=== PATIENT | female | born 1940 | race Caucasian/White ===

== ENCOUNTER → 2020-05-13 13:39 | Outpatient (CLI) | payer MEDICARE, SELFPAY ==
--- NOTE | ~2020-05-13 | MM_ITS ---
EXAMINATION: MM screening [facility] BI w allen HISTORY: Screening mammogram TECHNIQUE: Craniocaudal and mediolateral oblique 3-D tomosynthesis images were obtained and synthetic 2-D images were generated. CAD analysis was submitted and interpreted. COMPARISON: 11/11/2018, 10/25/2017, 10/30/2016 BREAST PARENCHYMAL COMPOSITION: There are scattered areas of fibroglandular density. FINDINGS: There is no evidence of suspicious mass, calcification, or architectural distortion to sugg est malignancy in either breast. There has been no suspicious interval change. IMPRESSION: 1. No mammographic evidence of malignancy. 2. Recommend routine screening mammography while the patient remains in good health. BI-RADS Category 1: Negative Reviewed, dictated and finalized at location A. IMPRESSION: 1. No mammographic evidence of malignancy. 2. Recommend routine screening mammography while the patient remains in good he alth. BI-RADS Category 1: Negative
== END ==
PROVIDERS: PCP Internal Medicine; Visit Provider Internal Medicine
DX: Z12.31 Encounter for screening mammogram for malignant neoplasm of breast (principal)
CPT/HCPCS: 77063; 77067

== ENCOUNTER → 2020-06-06 11:25 | Outpatient (CLI) | payer MEDICARE, SELFPAY ==
--- NOTE | ~2020-06-06 | DEXA_ITS ---
Bone Density Report Name: Martine Robles Age: 80 Sex: Female Ethnicity: White Date of : 1940 Indication: postmenopausal; screening for osteoporosis; height loss; Referring Provider: Raffaele Hogan Study: Bone densitometry was performed. Exam Date: June 06, 2020 Accession number: [id number] There is hypertrophic degenerative change of the lumbar spine, which results in higher than expected spine bone mineral density measurements. These spine BMD and T score and Z score measurements are not reflective of the patient's true general bone mineral density. Bone Density: Region BMD T-score Z-score Classification AP Spine (L1-L4) 1.134 0.8 3.5 Normal Femoral Neck (Left) 0.676 -1.6 0.7 Osteopenia Total Hip (Left) 0.911 -0.3 1.8 Normal Femoral Neck (Right) 0.672 -1.6 0.7 Osteopenia Total Hip (Right) 0.883 -0.5 1.6 Normal Total Hip Mean 0.897 -0.4 1.7 Normal World Health Organization criteria for BMD impression classify patients as: Normal (T-score at or above -1.0), Osteopenia (T-score between -1.0 and -2.5), or Osteoporosis (T-score at or below -2.5). 10-year Fracture Risk(1): Major Osteoporotic Fracture 13% Hip Fracture 3.1% Reported Risk Factors: [place] (), Neck BMD=0.672, BMI=29.7 (1) FRAX(R) Version 3.08. Fracture probability calculated for an untreated patient. Fracture probability may be lower if the patient has received treatment. Previous Exams: Region Exam Age BMD T-score BMD Change BMD Change Date g/cm2 vs Baseline vs Previous AP Spine(L1-L4) 06/06/2020 80 1.134 0.8 0.040* 0.040* 02/20/2011 70 1.094 0.4 Total Hip(Left) 06/06/2020 80 0.911 -0.3 0.004 0.004 02/20/2011 70 0.908 -0.3 Total Hip(Right) 06/06/2020 80 0.883 -0.5 0.006 0.006 02/20/2011 70 0.877 -0.5 *Denotes significance at 95% confidence level, LSC for AP Spine = 0.022 g/cm2, LSC for Total Hip = 0.027 g/cm2 Clinical Information Provided by Patient: Has used the following medications: Vitamin D, Synthroid Patient maximum height was 62.5 Menopause Age: 53 No regular weight bearing exercise Onset of menses at age 12 Number of children 1 Impression: The patient has low bone mass, based on the Left Femoral Neck T-score. The patient has an estimated ten-year risk of hip fracture of 3.1% and an estimated ten-year risk of major fracture of 13%, based on the WHO FRAX algorithm.
== END ==
PROVIDERS: PCP Internal Medicine; Visit Provider Internal Medicine
DX: Z78.0 Asymptomatic menopausal state (principal); M85.852 Other specified disorders of bone density and structure, left thigh; M85.851 Other specified disorders of bone density and structure, right thigh
CPT/HCPCS: 77080

== ENCOUNTER → 2020-07-05 11:56 | Outpatient (CLI) | payer MEDICARE, SELFPAY ==
--- NOTE | ~2020-07-05 | XR_ITS ---
EXAMINATION: XR knee RT 3V DATE: 07/05/2020 12:52 INDICATION: Right knee pain. TECHNIQUE: 3 views of right knee were obtained. COMPARISON: Right knee radiographs 08/05/2016 FINDINGS: There is lateral subluxation of patella. No fracture. There is severe osteoarthritis of pat ellofemoral compartment and mild osteoarthritis of medial and lateral compartments. No knee joint eff usion. IMPRESSION: 1. Severe right knee osteoarthritis. Reviewed, dictated and finalized at location A. TER DIE MAKER
--- NOTE | ~2020-07-05 | XR_ITS ---
EXAMINATION: XR knee LT 3V DATE: 07/05/2020 12:52 INDICATION: Left knee pain. TECHNIQUE: 3 views of left knee were obtained. COMPARISON: None. FINDINGS: There is lateral subluxation of patella. No fracture. There is severe osteoarthritis of pat ellofemoral compartment and mild osteoarthritis of medial and lateral compartments. No knee joint eff usion. IMPRESSION: 1. Severe left knee osteoarthritis. Reviewed, dictated and finalized at location A. [employer]
== END ==
PROVIDERS: Visit Provider Nurse Practitioner
DX: M17.0 Bilateral primary osteoarthritis of knee (principal)
CPT/HCPCS: 73562

== ENCOUNTER 2020-07-27 13:12 | Emergency (ER) | payer MEDICARE, SELFPAY ==
--- NOTE | 2020-07-27 13:15 | ED.GENADULT ---
HPI - General Adult General Chief complaint: Fall Stated complaint: Fall Time Seen by Provider: 07/27/20 13:14 Source: patient Mode of arrival: ambulatory Limitations: no limitations History of Present Illness HPI narrative: 80-year-old female patient presents to the [facility] with complaints of a laceration to the upper lip after a fall yesterday. Patient states she was walking down her stairs when she thinks she might of tripped and fallen and states she landed on the carpeted area of her stair landing. Patient thinks that she might have accidentally bit her lip or had her tooth hit her lip causing a laceration. Patient unaware of when her last tetanus shot was. Patient states she did clean the lip with some soap and water and has been cleaning with Listerine. Patient denies any history of diabetes. Patient denies hitting the top of her head or loss of consciousness at the time of the fall. Related Data Home Medications Medication Instructions Recorded Confirmed aspirin 81 mg tablet,delayed 81 mg PO DAILY 09/28/19 07/27/20 release brimonidine 0.15 % eye drops 1 drop EACH EYE BID ml 09/28/19 07/27/20 latanoprost 0.005 % eye drops 1 drop OPHTHALMIC (EYE) QPM ml 04/29/20 07/27/20 cholecalciferol (vitamin D3) 125 125 mcg PO DAILY 07/05/20 07/25/20 mcg (5,000 unit) capsule aluminum-mag hydroxide-simethicone 5 ml PO ONCE 07/25/20 07/25/20 200 mg-200 mg-20 mg/5 mL oral susp Allergies Allergy/AdvReac Type Severity Reaction Status Date / Time Sulfa (Sulfonamide Allergy Unknown stomach Verified 07/27/20 13:45 Antibiotics) cramping Review of Systems Review of Systems: Narrative: CONSTITUTIONAL: Denies fever, chills, or sweats. EYES: Denies visual changes, redness, or discharge. ENT: Denies rhinorrhea, congestion, sore throat, or otalgia. CARDIOVASCULAR: Denies chest pain, palpitations, or edema. RESPIRATORY: Denies cough or dyspnea. GASTROINTESTINAL: Denies abdominal pain, nausea, vomiting, or diarrhea. GENITOURINARY: Denies dysuria or hematuria. SKIN: Denies rash or itching. Positive laceration to the upper lip MUSCULOSKELETAL: Denies back pain, joint pain, or myalgia. NEUROLOGIC: Denies headache, numbness, or weakness. PSYCHIATRIC: Denies anxiety or depression. [facility] Past Medical History Medical History (Updated 07/27/20 @ 14:01 by MICHAEL Griffiths) Arthritis Asthma Bilateral knee pain Effusion, right knee GERD (gastroesophageal reflux disease) Hyperglycemia Hypertension Hypothyroidism Left knee DJD Lumbar spondylolysis Osteoporosis Post-nasal drip Right knee DJD Throat pain Wears glasses Surgical History Surgical History H/O eye surgery Retinal reattachment 1970 H/O thyroidectomy 2004 History of appendectomy 2001 Family History Family History (Updated 07/25/20 @ 13:43 by Karen Burgess, RT(R)) Other Family history of hypertension Family history of TIAs Father Heart attack Mother CHF (congestive heart failure) Cerebrovascular accident Other Arthritis Family history of cardiovascular disease Heart disease Hypertension Social History Social History (Updated 07/25/20 @ 13:43 by Karen Burgess, RT(R)) Smoking status: Never smoker Alcohol intake: never Substance use: never Substance use type: does not use Gender identity (if verbalized by the patient): Female Exam Narrative: Exam Narrative: GENERAL: Well-appearing, well-nourished, and in no acute distress. HEAD: Normocephalic, atraumatic. EYES: PERRLA and EOMI. ENT: Nares clear, no rhinorrhea or epistaxis. Mucous membranes moist. NECK: Supple. No lymphadenopathy CHEST: Clear to auscultation. No respiratory distress. HEART: Regular rate and rhythm. No murmur heard. Normal peripheral pulses. ABDOMEN: Soft, nontender, nondistended, normal active bowel sounds. EXTREMITIES: Normal range of motion. No edema. SKIN: Warm, dry, no rash. Patie
[2020-07-27 13:24] VITALS: BP 169/73; PULSE 64; RESP 20; TEMP 36.6; O2SAT 100
[2020-07-27] MEDS: TETANUS,DIPHTHERIA,AC PERTUSSIS ADULT (0.5 ML) BOOSTRIX IM (13:52)
== END 2020-07-27 14:09 | disposition home or self-care (01) ==
PROVIDERS: Emergency Provider Nurse Practitioner Family; PCP Internal Medicine
DX: S01.511A Laceration without foreign body of lip, initial encounter (principal); W10.9XXA Fall (on) (from) unspecified stairs and steps, initial encounter; Z23 Encounter for immunization; M19.90 Unspecified osteoarthritis, unspecified site; J45.909 Unspecified asthma, uncomplicated; K21.9 Gastro-esophageal reflux disease without esophagitis; I10 Essential (primary) hypertension; E89.0 Postprocedural hypothyroidism; M47.816 Spondylosis without myelopathy or radiculopathy, lumbar region; M17.0 Bilateral primary osteoarthritis of knee
CPT/HCPCS: 90471; 90715; 99213; G0463

== ENCOUNTER → 2021-02-28 10:48 | Outpatient (CLI) | payer MEDICARE, SELFPAY ==
--- NOTE | ~2021-02-28 | US_ITS ---
EXAMINATION: US abdomen complete EXAM DATE: 02/28/2021 12:50 INDICATION: R10.31 - Right lower quadrant pain. TECHNIQUE: Multiple grayscale and Doppler images of the complete abdomen were obtained (by a technolo gist who performed the scan) and subsequently reviewed. Comparison is made to prior examination from 12/23/2012. FINDINGS: Scanning in the right lower quadrant demonstrated no sonographic abnormality. Appendix was searched for but not visualized on this exam. Please note that normal appendix is not expected to b e visualized by ultrasound. Sometimes an abnormal appendix can be visualized. The abdominal aorta is normal in caliber. Visualized portion IVC is patent. The pancreatic head a nd body are normal in appearance. The pancreatic tail is not visualized. The liver has normal echogenicity and contour. There are no focal liver lesions identified. There is no evidence of intrahepatic biliary duct dilation. Portal venous flow was seen in the hepatopedal , normal direction and has normal Doppler waveform. Common bile duct measures 3 mm, which is normal. The gallbladder wall is normal in thickness, with ex pected amount of distention. No sonographic evidence of pericholecystic fluid. There is no cholelit hiases. Technologist performing exam reports patient did not demonstrate sonographic Damon's sign. Please note that this sign is less reliable in patients who have received pain medication. Right kidney: There is normal contour and echogenicity. It measures 8.7 x 4.7 x 3.9 centimeters. T here are no focal renal lesions identified. There is no hydronephrosis. Left kidney: There is normal contour and echogenicity. It measures 7.9 x 4.5 x 3.8 centimeters. Th ere are no focal renal lesions identified. There is no hydronephrosis. The spleen measures 9.4 centimeters and is morphologically normal. IMPRESSION: 1. Unremarkable complete abdominal ultrasound exam. Reviewed, dictated and finalized at location A.
== END ==
PROVIDERS: PCP Internal Medicine; Visit Provider Nurse Practitioner
DX: R10.31 Right lower quadrant pain (principal)
CPT/HCPCS: 76700

== ENCOUNTER 2021-03-05 17:13 | Outpatient (CLI) | payer MEDICARE, SELFPAY ==
--- NOTE | ~2021-03-05 | CT_ITS ---
EXAMINATION: CT abdomen pelvis wo con EXAM DATE: 03/05/2021 17:57 INDICATION: R10.31 - Right lower quadrant pain . TECHNIQUE: Spiral CT of the abdomen and pelvis was performed without contrast. Axial, coronal and s agittal images of the abdomen and pelvis were reviewed. The dose-length product (DLP) for this exami nation was 529.83 mGy-cm. The exposure was tailored according to patient size (auto mA exposure cont rol), and iterative reconstruction (ASIR) was used as additional dose reduction technique. Comparison is made to prior examination from 09/17/1969. FINDINGS: There are several liver cysts. Unchanged small nodules of soft tissue posterior to the righ t liver lobe, benign. The liver, spleen, adrenal glands and pancreas are otherwise unremarkable. Gal lbladder is unremarkable. No biliary obstruction. There is no nephrolithiasis or hydronephrosis. The uterus is unremarkable. The bladder is unremarkable. There is no retroperitoneal or pelvic lym phadenopathy. There is mild scattered arteriosclerotic disease. The appendix is not positively visualized. There is no pericecal inflammatory change to suggest appe ndicitis. The stomach and small bowel are unremarkable. There is moderate amount of colonic stool. No free intraperitoneal gas. The heart is normal in size. There are no pericardial or pleural e ffusions. The lung bases are unremarkable. Mild lumbar levoscoliosis. There are no osteoblastic or osteolytic lesions identified. IMPRESSION: No acute intra-abdominal findings. Reviewed, dictated and finalized at location .
== END 2021-03-05 17:14 | disposition home or self-care (01) ==
LOC: ANHIMG 17:20
PROVIDERS: PCP Internal Medicine; Visit Provider Nurse Practitioner
DX: R10.31 Right lower quadrant pain (principal)
CPT/HCPCS: 74176

== ENCOUNTER → 2021-05-22 13:48 | Outpatient (CLI) | payer MEDICARE, SELFPAY ==
--- NOTE | ~2021-05-22 | MM_ITS ---
EXAMINATION: MM screening [facility] BI w allen HISTORY: Screening mammogram TECHNIQUE: Craniocaudal and mediolateral oblique 3-D tomosynthesis images were obtained and synthetic 2-D images were generated. CAD analysis was submitted and interpreted. COMPARISON: 05/05/2020, 11/11/2018, 10/25/2017 BREAST PARENCHYMAL COMPOSITION: There are scattered areas of fibroglandular density. FINDINGS: There is no evidence of suspicious mass, calcification, or architectural distortion to sugg est malignancy in either breast. There has been no suspicious interval change. IMPRESSION: 1. No mammographic evidence of malignancy. 2. Recommend routine screening mammography while the patient remains in good health. BI-RADS Category 1: Negative Reviewed, dictated and finalized at location A. IMPRESSION: 1. No mammographic evidence of malignancy. 2. Recommend routine screening mammography while the patient remains in good he alth. BI-RADS Category 1: Negative
== END ==
PROVIDERS: PCP Internal Medicine; Visit Provider Nurse Practitioner
DX: Z12.31 Encounter for screening mammogram for malignant neoplasm of breast (principal)
CPT/HCPCS: 77063; 77067

== ENCOUNTER 2022-07-16 08:20 | Emergency (ER) | payer MEDICARE, SELFPAY ==
--- NOTE | 2022-07-16 08:26 | ED.URI ---
HPI - URI/Sore Throat General Chief Complaint: Upper Respiratory Infection Stated Complaint: Sore Throat Time Seen by Provider: 07/16/22 08:26 Source: patient and RN notes reviewed History of Present Illness HPI Narrative: patient is an 82-year-old female who presents to urgent care with complaints of a sore throat for 2 days. Patient states she has been gargling with Listerine. Denies any fever, nausea, vomiting, body aches. States she has had some sinus pressure and hoarseness. Denies any ill exposures. No other acute complaints. No acute distress noted. Patient aware of the plan of care. Some parts of this dictation were generated by voice recognition software and may contain typographical and/or grammatical inaccuracies. Related Data Home Medications Medication Instructions Recorded Confirmed aspirin 81 mg tablet,delayed 81 mg PO DAILY 09/28/19 07/16/22 release (Adult Low Dose Aspirin) latanoprost 0.005 % eye drops 1 drop ophthalmic (eye) QPM 04/29/20 07/16/22 cholecalciferol (vitamin D3) 125 125 mcg PO DAILY 07/05/20 07/16/22 mcg (5,000 unit) capsule doxycycline hyclate 20 mg tablet 20 mg PO BID 01/09/21 07/16/22 vit C 250 mg-vit E 90 mg-zinc 40 1 tablet PO BID 02/24/21 10/22/21 mg-copper 1 [id number]-vldyep capsule (PreserVision AREDS-2) Allergies Allergy/AdvReac Type Severity Reaction Status Date / Time Sulfa (Sulfonamide Allergy Unknown stomach Verified 07/16/22 08:44 Antibiotics) cramping Review of Systems Review of Systems: CONSTITUTIONAL: Denies fever, chills, or sweats. EYES: Denies visual changes, redness, or discharge. ENT: Reports of sinus pressure and sore throat CARDIOVASCULAR: Denies chest pain, palpitations, or edema. RESPIRATORY: Denies cough or dyspnea. GASTROINTESTINAL: Denies abdominal pain, nausea, vomiting, or diarrhea. GENITOURINARY: Denies dysuria or hematuria. SKIN: Denies rash or itching. MUSCULOSKELETAL: Denies back pain, joint pain, or myalgia. NEUROLOGIC: Denies headache, numbness, or weakness. All other systems reviewed are negative, except as documented in HPI. [facility] Past Medical History Medical History Acquired claw toe of right foot Arthritis Asthma Bilateral knee pain Bilateral primary osteoarthritis of hip Effusion, right knee GERD (gastroesophageal reflux disease) Hallux valgus (acquired), right foot Hyperglycemia Hypertension Hypothyroidism Left knee DJD Lumbar spine pain Lumbar spondylolysis Osteoporosis Post-nasal drip Right knee DJD Rosacea Throat pain Wears glasses Surgical History Surgical History H/O eye surgery Retinal reattachment 1970 H/O thyroidectomy 2004 History of appendectomy 2001 Family History Family History Other Family history of hypertension Family history of TIAs Father Heart attack Mother CHF (congestive heart failure) Cerebrovascular accident Other Arthritis Family history of cardiovascular disease Heart disease Hypertension Social History Social History (Updated 05/04/22 @ 13:15 by Marilin Odonnell) Social History: Caffeine-none Smoking status: Never smoker Alcohol intake: never Substance use: never Substance use type: does not use Gender identity (if verbalized by the patient): Female Comments At the time of my signature, I reviewed and agree with the nursing past medical, surgical, social, and family history. There is no relevant family history pertinent to the patient complaint. Exam Narrative: GENERAL: This is a well-nourished, well-developed patient, in no apparent distress. HEAD: normocephalic, atraumatic. EYES: PERRL. Sclera clear/white. Vision is grossly intact. EARS: External ears normal, auditory canals clear and without drainage, TMs normal without perforation. Hearing grossly intact. NOSE: External nose n
[2022-07-16 08:31] VITALS: BP 160/77; PULSE 55; RESP 16; TEMP 36.3; O2SAT 100
== END 2022-07-16 08:55 | disposition home or self-care (01) ==
PROVIDERS: Emergency Provider Nurse Practitioner Family; PCP Internal Medicine
DX: J02.9 Acute pharyngitis, unspecified (principal); Z79.82 Long term (current) use of aspirin; J45.909 Unspecified asthma, uncomplicated; K21.9 Gastro-esophageal reflux disease without esophagitis; I10 Essential (primary) hypertension; E03.9 Hypothyroidism, unspecified
CPT/HCPCS: 87081; 99213; G0463

== ENCOUNTER 2022-07-19 09:29 | Emergency (ER) | payer MEDICARE, SELFPAY ==
--- NOTE | ~2022-07-19 | XR_ITS ---
XR chest 1V portable 07/19/2022 09:46 Indication: Cough Procedure: AP portable chest Comparison: Comparison to multiple prior studies sequentially, with oldest reviewed study dated 05/10. Findings: Heart size normal. No focal air space disease, pulmonary edema, pleural effusion or suspect ed pneumothorax. Impression: 1: No acute cardiopulmonary disease. Reviewed, dictated and finalized at location A. [employer] D[employer]ER OPERATOR Impression: 1: No acute cardiopulmonary disease.
[2022-07-19 09:32] VITALS: BP 159/89; PULSE 75; RESP 15; TEMP 36.6; O2SAT 99
[2022-07-19 10:28] LABS: Influenza A QL RT-PCR Negative (Negative); Influenza B QL RT-PCR Negative (Negative); SARS-CoV-2 RNA PCR Negative
--- NOTE | 2022-07-19 10:36 | ED.URI ---
HPI - URI/Sore Throat General Chief Complaint: Upper Respiratory Infection Stated Complaint: coughing, shortness of breath, sore chest Time Seen by Provider: 07/19/22 09:46 Source: patient Mode of arrival: ambulatory Limitations: no limitations History of Present Illness HPI Narrative: Patient is an 82-year-old female who presents the ED with report of upper respiratory symptoms. Patient reports having sinus pressure, congestion, rhinorrhea, cough for the past 4 to 5 days. She thought she may have a sinus infection and was prescribed a Medrol Dosepak on 07/16. Patient denies improvement of symptoms since then. Last night, she had a hour-long coughing fit. She became concerned and wanted to be evaluated today. Patient is vaccinated for COVID and influenza. She denies any nausea, vomiting, abdominal pain, chest pain, difficulty breathing, muscle aches, headache, fever. Related Data Home Medications Medication Instructions Recorded Confirmed aspirin 81 mg tablet,delayed 81 mg PO DAILY 09/28/19 07/16/22 release (Adult Low Dose Aspirin) latanoprost 0.005 % eye drops 1 drop ophthalmic (eye) QPM 04/29/20 07/16/22 cholecalciferol (vitamin D3) 125 125 mcg PO DAILY 07/05/20 07/16/22 mcg (5,000 unit) capsule doxycycline hyclate 20 mg tablet 20 mg PO BID 01/09/21 07/16/22 vit C 250 mg-vit E 90 mg-zinc 40 1 tablet PO BID 02/24/21 10/22/21 mg-copper 1 ml-lewgfz-iyudhy capsule (PreserVision AREDS-2) Allergies Allergy/AdvReac Type Severity Reaction Status Date / Time Sulfa (Sulfonamide Allergy Unknown stomach Verified 07/16/22 08:44 Antibiotics) cramping Review of Systems Review of Systems: CONSTITUTIONAL: Denies fever, chills, or sweats. ENT: Reports sinus pressure, rhinorrhea, congestion. CARDIOVASCULAR: Denies chest pain. RESPIRATORY: Reports cough. Denies dyspnea. GASTROINTESTINAL: Denies abdominal pain, nausea, vomiting, or diarrhea. MUSCULOSKELETAL: Denies myalgia. NEUROLOGIC: Denies headache. All systems reviewed & are unremarkable except as noted in HPI and below PMFSH Past Medical History Medical History Acquired claw toe of right foot Arthritis Asthma Bilateral knee pain Bilateral primary osteoarthritis of hip Effusion, right knee GERD (gastroesophageal reflux disease) Hallux valgus (acquired), right foot Hyperglycemia Hypertension Hypothyroidism Left knee DJD Lumbar spine pain Lumbar spondylolysis Osteoporosis Post-nasal drip Right knee DJD Rosacea Throat pain Wears glasses Surgical History Surgical History H/O eye surgery Retinal reattachment 1970 H/O thyroidectomy 2004 History of appendectomy 2002 Family History Family History Other Family history of hypertension Family history of TIAs Father Heart attack Mother CHF (congestive heart failure) Cerebrovascular accident Other Arthritis Family history of cardiovascular disease Heart disease Hypertension Social History Social History Social History: Caffeine-none Smoking status: Never smoker Alcohol intake: never Substance use: never Substance use type: does not use Gender identity (if verbalized by the patient): Female Exam Narrative: GENERAL: Well appearing, well-nourished, non-toxic, in no acute distress. HEAD: Normocephalic, atraumatic. EENT: PERRLA/EOMI, conjunctiva clear. No nasal drainage. MMs moist. NECK: Supple. No adenopathy, no masses. RESPIRATORY: Airway patent, respirations nonlabored. Clear to auscultation bilaterally, no rales, rhonchi, wheezing. CARDIOVASCULAR: Regular rate and rhythm without murmurs, rubs, or gallops. Peripheral pulses 2+ and equal bilaterally. ABDOMINAL: Soft, nontender, nondistended, no hepatosplenomegaly. Normoactive BS. MUSCULOSKELETA
== END 2022-07-19 10:52 | disposition home or self-care (01) ==
PROVIDERS: Emergency Provider Physician Assistant; PCP Internal Medicine
DX: J06.9 Acute upper respiratory infection, unspecified (principal); Z20.822 Contact with and (suspected) exposure to COVID-19; J45.909 Unspecified asthma, uncomplicated; I10 Essential (primary) hypertension; K21.9 Gastro-esophageal reflux disease without esophagitis; E89.0 Postprocedural hypothyroidism; M81.0 Age-related osteoporosis without current pathological fracture; M17.0 Bilateral primary osteoarthritis of knee; M19.90 Unspecified osteoarthritis, unspecified site; Z79.82 Long term (current) use of aspirin
CPT/HCPCS: 71045; 87636; 99283

== ENCOUNTER → 2022-07-23 14:11 | Outpatient (CLI) | payer MEDICARE, SELFPAY ==
--- NOTE | ~2022-07-23 | MM_ITS ---
EXAMINATION: MM screening [facility] BI w allen HISTORY: Screening mammogram TECHNIQUE: Craniocaudal and mediolateral oblique 3-D tomosynthesis images were obtained and synthetic 2-D images were generated. CAD analysis was submitted and interpreted. COMPARISON: 05/22/2021, 05/13/2020, 11/11/2018 BREAST PARENCHYMAL COMPOSITION: There are scattered areas of fibroglandular density. FINDINGS: No suspicious mass, calcification, or architectural distortion are identified in either aleksander ast to suggest malignancy. There has been no suspicious interval change. IMPRESSION: 1. No mammographic evidence of malignancy. 2. Recommend routine screening mammography while the patient remains in good health. BI-RADS Category 1: Negative Reviewed, dictated and finalized at location A. [employer]EDGE IMPRESSION: 1. No mammographic evidence of malignancy. 2. Recommend routine screening mammography while the patient remains in good he alth. BI-RADS Category 1: Negative
== END ==
PROVIDERS: PCP Internal Medicine; Visit Provider Nurse Practitioner
DX: Z12.31 Encounter for screening mammogram for malignant neoplasm of breast (principal)
CPT/HCPCS: 77063; 77067

== ENCOUNTER 2022-10-09 20:53 | Emergency (ER) | payer MEDICARE, SELFPAY ==
[2022-10-09] VITALS (17 sets, daily range): BP systolic 153–187; BP diastolic 65–78; PULSE 58–71; RESP 13–23; TEMP 36.6; O2SAT 100
--- NOTE | ~2022-10-09 | CT_ITS ---
EXAMINATION: CT brain wo con DATE: 10/09/2022 21:51 INDICATION: Headache. TECHNIQUE: Computed tomography (CT) of the head was performed without intravenous contrast. The mA wa s adjusted according to patient size. Iterative reconstruction technique was employed. The dose-lengt h product was 605.33 mGy-cm. COMPARISON: Head CT 06/15/2019 FINDINGS: There is a small area of chronic cystic encephalomalacia in the right frontoparietal deep w ana matter. There is no intracranial hemorrhage, acute infarction, or abnormal intracranial mass les ion. There are scattered areas of low attenuation in the cerebral white matter, which is within ling l limits for the patient's age. The ventricles are normal in size. There are likely changes of ocular lens replacement surgeries. There are changes of bilateral scleral banding procedures. There are rad iopaque implants at the surface of the ocular globes bilaterally. There is mild mucosal thickening in the paranasal sinuses. The mastoid air cells are normal. IMPRESSION: 1. 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 Reviewed, dictated and finalized at location [facility]. NING COORDINATOR IMPRESSION: 1. Small area of chronic cystic encephalomalacia in the right frontoparietal de ep white matter.
--- NOTE | 2022-10-09 21:39 | ECG_ITS ---
Measurements Intervals [place] Rate: 59 P: 18 MD: 181 QRS: -17 QRSD: 90 T: 39 QT: 421 QTc: 418 Interpretive Statements SINUS BRADYCARDIA OTHERWISE WITHIN NORMAL LIMITS COMPARED TO ECG 06/15/2019 12:26:25 NO SIGNIFICANT CHANGE Electronically Signed On 10-10-2022 7:53:19 PROFESSOR OF SOCIOLOGY by Ashvin Julian M.D.
[2022-10-09 22:23] LABS: Basophils Percent Auto 0.3 % (0.2-1.2); Eosinophils Absolute Auto 0.1 K/mm3 (0-0.3); Hematocrit 44.1 % (37.0-47.0); Hemoglobin 14.3 g/dL (12.0-15.0); Immature Granulocyte Absolute 0.02 K/mm3 (0.00-0.031); Immature Granulocyte Percent A 0.2 % (0-0.5); Lymphocytes Absolute Auto 3.46 K/mm3 (0.9-3.2); Lymphocytes Percent Auto 39.3 % (18.3-44.2); Mean Corpuscular HGB Conc 32.4 g/dl (32-36); Mean Corpuscular Hemoglobin 28.8 pg (26-34); Mean Corpuscular Volume 88.9 fl (80-100); Mean Platelet Volume 10.3 fl (7.4-10.4); Monocytes Absolute Auto 1.1 K/mm3 (0.1-0.6); Monocytes Percent Auto 12.5 % (2.6-8.5); Neutrophils Absolute Auto 4.1 K/mm3 (1.3-6.7); Neutrophils Percent Auto 46.7 % (45.5-73.1); Platelet Count Result 264 k/mm3 (150-375); Red Blood Count 4.96 M/mm3 (4.2-5.4); White Blood Count 8.8 K/mm3 (4.5-10.0)
[2022-10-09 22:30] LABS: Appearance Urine Clear (Clear); Bacteria Urine None Seen /hpf; Bilirubin Urine Negative (Negative); Blood Urine Negative (Negative); Color Urine Yellow (Yellow); Glucose Urine UA Negative (Negative); Ketones Urine Negative (Negative); Leukocyte Esterase Ur Trace LEU/UL (Negative); Nitrate Urine Negative (Negative); Non Pathogenic Casts 0-2; Protein Urine Negative (Negative); RBC Urine 0-2 /hpf (0-2); Specific Grav Ur 1.006 (1.001-1.035); Squamous Epithelial Cell Urine None seen /hpf (Few); Urobilinogen Urine 0.2 mg/dL (<2.0); WBC Urine 0-5 /hpf
[2022-10-09 22:35] LABS: Alanine Aminotransferase 21 U/L (6-35); Albumin Level 4.4 g/dL (3.5-5.1); Alkaline Phosphatase 97 U/L (38-126); Anion Gap 5 mmol/L (8-16); Aspartate Amino Transferase 27 U/L (14-36); Bilirubin,Total 0.5 mg/dL (0.2-1.3); Blood Urea Nitrogen 23 mg/dL (7-17); Calcium 9.2 mg/dL (8.4-10.2); Carbon Dioxide 31 mmol/L (22-30); Chloride 107 mmol/L (98-107); Estimated Glomerular Filt Rate > 60; Glucose 97 mg/dL (65-110); Magnesium 2.4 mg/dL (1.6-2.3); Potassium 3.9 mmol/L (3.4-5.0); Sodium 143 mmol/L (137-145)
--- NOTE | 2022-10-09 22:40 | ED.GENADULT ---
HPI - General Adult General Chief complaint: Headache Stated complaint: high blood pressure Time Seen by Provider: 10/09/22 21:21 History of Present Illness HPI narrative: Patient 82-year-old female who presents the emergency department with chief complaint of headache and hypertension. Patient reports this evening she noticed that she started having little bit of a headache which is unusual for her. The patient reports no focal neurological deficits but reports that she checked her blood pressure and it started progressively increasing that she would check her blood pressure multiple times. Patient reports that she takes verapamil. The patient denies chest pain denies shortness of breath denies focal neurological deficit. Related Data Home Medications Medication Instructions Recorded Confirmed aspirin 81 mg tablet,delayed 81 mg PO DAILY 09/28/19 07/16/22 release (Adult Low Dose Aspirin) latanoprost 0.005 % eye drops 1 drop ophthalmic (eye) QPM 04/29/20 07/16/22 cholecalciferol (vitamin D3) 125 125 mcg PO DAILY 07/05/20 07/16/22 mcg (5,000 unit) capsule vit C 250 mg-vit E 90 mg-zinc 40 1 tablet PO BID 02/24/21 10/22/21 mg-copper 1 [id number] capsule (PreserVision AREDS-2) Allergies Allergy/AdvReac Type Severity Reaction Status Date / Time Sulfa (Sulfonamide Allergy Unknown stomach Verified 10/09/22 21:08 Antibiotics) cramping Review of Systems Review of Systems: A 10 system review of systems was completed on the patient and is negative except for what is stated in the HPI. Nursing and ancillary documentation was reviewed. [facility] Past Medical History Medical History Acquired claw toe of right foot Arthritis Asthma Bilateral knee pain Bilateral primary osteoarthritis of hip Effusion, right knee GERD (gastroesophageal reflux disease) Hallux valgus (acquired), right foot Hyperglycemia Hypertension Hypothyroidism Left knee DJD Lumbar spine pain Lumbar spondylolysis Osteoporosis Post-nasal drip Right knee DJD Rosacea Throat pain Wears glasses Surgical History Surgical History H/O eye surgery Retinal reattachment 1970 H/O thyroidectomy 2004 History of appendectomy 2001 Family History Family History Other Family history of hypertension Family history of TIAs Father Heart attack Mother CHF (congestive heart failure) Cerebrovascular accident Other Arthritis Family history of cardiovascular disease Heart disease Hypertension Social History Social History Social History: Caffeine-none Smoking status: Never smoker Alcohol intake: never Substance use: never Substance use type: does not use Lack of Transportation: No Lack of Food: Never True Current Housing: I Have Housing Concerned About Future Housing: No Difficulty Paying Gas/Electric Bills: No Difficulty Paying for Meds: No Currently Unemployed: No Education: High School Diploma/GED Difficulty w/ Childcare or Family Care: No Gender identity (if verbalized by the patient): Female Exam Narrative: GENERAL: Well-appearing, well-nourished, and in no acute distress. HEAD: Normocephalic, atraumatic. EYES: PERRLA and EOMI. ENT: Nares clear, no rhinorrhea or epistaxis. Mucous membranes moist. NECK: Supple. CHEST: Clear to auscultation. No respiratory distress. HEART: Regular rate and rhythm. No murmur heard. Normal peripheral pulses. ABDOMEN: Soft, nontender, nondistended, normal active bowel sounds. EXTREMITIES: Normal range of motion. No edema. SKIN: Warm, dry, no rash. NEURO: No focal deficits. Alert and oriented x3. PSYCH: Normal mood and affect. Course Vital Signs Vital signs: Vital Signs Temperature 36.6 C 10/09/22 2
[2022-10-09 22:46] LABS: NT Pro B Type Natriuretic Pept 336 pg/mL (19.9-100); Troponin I < 0.012 ng/mL (0.000-0.034)
[2022-10-09 22:52] LABS: Add Urine Microscopic? NO
[2022-10-09 22:57] LABS: Influenza A QL RT-PCR Negative (Negative); Influenza B QL RT-PCR Negative (Negative); SARS-CoV-2 RNA PCR Negative
[2022-10-10] VITALS: PULSE 69; RESP 14; O2SAT 100
[2022-10-10 00:01] VITALS: BP 166/78; PULSE 74; RESP 17; O2SAT 100
[2022-10-10 00:02] VITALS: PULSE 75; RESP 18; O2SAT 100
== END 2022-10-10 00:35 | disposition home or self-care (01) ==
PROVIDERS: Emergency Provider Emergency Medicine; PCP Internal Medicine
DX: I10 Essential (primary) hypertension (principal); Z20.822 Contact with and (suspected) exposure to COVID-19; J45.909 Unspecified asthma, uncomplicated; M16.0 Bilateral primary osteoarthritis of hip; M17.0 Bilateral primary osteoarthritis of knee; K21.9 Gastro-esophageal reflux disease without esophagitis; E89.0 Postprocedural hypothyroidism; R00.1 Bradycardia, unspecified
CPT/HCPCS: 36415; 70450; 80053; 81003; 83735; 83880; 84484; 85025; 87636; 93005; 96365; 99284; J0131

== ENCOUNTER 2022-10-30 09:35 | Outpatient (CLI) | payer MEDICARE, SELFPAY ==
--- NOTE | ~2022-10-30 | CT_ITS ---
CT of the Abdomen and Pelvis: Indication: Abdominal pain Technique: 2.5 mm axial scans were obtained through the abdomen and pelvis following intravenous adm inistration of 100 cc of Omnipaque 350. Dose reduction technique was used on this scan by utilizing a utomated exposure control and iterative reconstruction technique. The dose-length product (DLP) was 5 03.15 mGy-cm. COMPARISON: 03/05/2021 Findings: Scans through the lung bases are unremarkable. Small hiatal hernia noted. Small hepatic cysts are noted. The spleen, pancreas, gallbladder, adrenals and kidneys are within nor mal limits. There are atherosclerotic calcifications of the aorta. No lymphadenopathy. No bowel obstruction or bowel wall thickening. There is no evidence to suggest acute appendicitis. Ti ny fat-containing umbilical hernia noted. Images through the pelvis were performed. Urinary bladder unremarkable. No adnexal mass. No ascites. Impression: Tiny fat-containing umbilical hernia. Small hiatal hernia. Reviewed, dictated and finalized at [facility]. Impression: Tiny fat-containing umbilical hernia. Small hiatal hernia.
== END 2022-10-30 09:36 | disposition home or self-care (01) ==
PROVIDERS: PCP Internal Medicine; Visit Provider Clinical Nurse Specialist
DX: K44.9 Diaphragmatic hernia without obstruction or gangrene (principal); K42.9 Umbilical hernia without obstruction or gangrene
CPT/HCPCS: 74177; Q9967

== ENCOUNTER 2022-11-05 09:22 | Outpatient (CLI) | payer MEDICARE, SELFPAY ==
--- NOTE | 2022-11-05 10:04 | ECHO_ITS ---
Patient Info Name: Martine Robles Age: 82 years : 1940 Gender: Female Ht: 59 in Wt: 142 lbs BSA: 1.66 m2 HR: 59 bpm BP: 163 / 96 mmHg Technical Quality: Fair Exam Date: 11/05/2022 10:17 AM Exam Location: [facility] Patient Status: Outpatient Admit Date: 11/05/2022 Staff Ordering Physician: Alexus Garces Consumer Experience Consultant: Melina Guzman RDCS Attending Provider: Alexus Garces Referring Physician: Mili MATOS; Exam Type: CA echo doppler color flow Study Info Indications R79.89 - OTHER SPECIFIED ABNORMAL FINDINGS OF BLOOD CHEMISTRY Complete two-dimensional, color flow and Doppler transthoracic echocardiogram is performed. Summary 1. Complete two-dimensional, color flow and Doppler transthoracic echocardiogram is performed. 2. Left ventricular chamber dimension is normal. 3. Left ventricular systolic function is normal, estimated at 60-65%. 4. There is mild concentric increased left ventricular wall thickness. 5. The left ventricular diastolic function is grade I diastolic dysfunction. 6. E/e' 7 is not elevated. 7. Global longitudinal strain is normal at -17.2%. 8. Left atrial chamber dimension is mildly enlarged. 9. There is moderate aortic valve sclerosis. 10. There is mild aortic valve stenosis with a peak velocity of 165 cm/s, mean gradient of 6 mmHg, and aortic valve area of 1.9 cm2. 11. The mitral valve has mildly calcified annulus. 12. No pulmonary hypertension, estimated pulmonary arterial systolic pressure is 19 mmHg. 13. Dilated inferior vena cava with >50% collapse upon inspiration consistent with elevated right atrial pressure, 10 mmHg. Left Ventricle E/e' 7 is not elevated. Global longitudinal strain is normal at -17.2%. Left ventricular chamber dimension is normal. Left ventricular systolic function is normal, estimated at 60-65%. There is mild concentric increased left ventricular wall thickness. The left ventricular diastolic function is grade I diastolic dysfunction. Right Ventricle Right ventricular systolic function is normal and with normal TAPSE 2.2 cm. Right ventricular chamber dimension is normal. Left Atria Left atrial chamber dimension is mildly enlarged. Right Atria Right atrial chamber dimension is normal. Aortic Valve The aortic valve is trileaflet. There is moderate aortic valve sclerosis. There is mild aortic valve stenosis with a peak velocity of 165 cm/s, mean gradient of 6 mmHg, and aortic valve area of 1.9 cm2. There is no aortic valve regurgitation. Pulmonic Valve There is no pulmonic regurgitation. Mitral Valve The mitral valve has mildly calcified annulus. There is no mitral valve stenosis. There is no mitral valve regurgitation. Tricuspid Valve There is no tricuspid valve regurgitation. No pulmonary hypertension, estimated pulmonary arterial systolic pressure is 19 mmHg. Pericardium/Pleural There is no pericardial effusion. Inferior Vena Cava Dilated inferior vena cava with >50% collapse upon inspiration consistent with elevated right atrial pressure, 10 mmHg. Aorta The aortic root size at the sinus of Valsalva is normal. Left Ventricular Outflow Tract Name Value Normal LVOT 2D LVOT Diameter 1.9 cm
== END 2022-11-05 09:23 | disposition home or self-care (01) ==
PROVIDERS: PCP Internal Medicine; Visit Provider Clinical Nurse Specialist
DX: R79.89 Other specified abnormal findings of blood chemistry (principal); R06.02 Shortness of breath; R94.39 Abnormal result of other cardiovascular function study
CPT/HCPCS: 93306

== ENCOUNTER 2022-11-20 14:23 | Emergency (ER) | payer MEDICARE, SELFPAY ==
--- NOTE | ~2022-11-20 | CT_ITS ---
EXAMINATION: CT brain wo con DATE: 11/20/2022 14:47 INDICATION: Headache and vertex TECHNIQUE: Computed tomography (CT) of the head was performed without intravenous contrast. The mA wa s adjusted according to patient size. Iterative reconstruction technique was employed. Exam dose: 60 5.33 mGy-cm total exam DLP. COMPARISON: October 09, 2022 CT brain FINDINGS: No intracranial mass lesion or hemorrhage or recent cerebrovascular accident is detected. N o midline shift or mass effect. Normal ventricular size. Mild to moderate volume loss of the cerebral and cerebellar hemispheres consistent with patient age. Prominent bilateral carotid siphon internal carotid artery calcifications. Small chronic lacunar infa rct of the right periventricular area No subdural or epidural hematoma. Bilateral scleral banding of the orbits There is an isolated opacified mid lateral left ethmoid air cell. Bilateral nasal antral windows are suggested. The paranasal sinuses and mastoid air cells are otherwise unremarkable. No fracture or bone destruction of the cranial vault. IMPRESSION: Cerebral atherosclerosis and chronic small vessel ischemic changes of the cerebral white matter, small chronic lacunar infarct of the right periventricular area No acute intracranial finding Reviewed, dictated and finalized at [facility]. Reviewed, dictated and finalized at location [facility]. IMPRESSION: Cerebral atherosclerosis and chronic small vessel ischemic changes of the cerebral white matter, small chronic lacunar infarct of the right periv entricular area No acute intracranial finding
--- NOTE | ~2022-11-20 | XR_ITS ---
XR chest 2V DATE: 11/20/2022 20:42 INDICATION: Hypertensive crisis TECHNIQUE: PA and lateral views COMPARISON: None FINDINGS: Normal heart size. Aortic calcification and unfolding. No pulmonary infiltrate or consolida tion, pleural effusion or pulmonary vascular congestion or pneumothorax. Osteopenia. IMPRESSION: No active cardiopulmonary disease Aortic atherosclerosis Osteopenia Reviewed, dictated and finalized at location [facility].
[2022-11-20 14:30] VITALS: BP 183/72; PULSE 88; RESP 20; TEMP 36.6; O2SAT 99
--- NOTE | 2022-11-20 19:03 | ED.HA ---
HPI - Headache General Chief Complaint: Headache <ASA Hill Last Filed: 11/20/22 22:37> Stated Complaint: headache <ASA Hill Last Filed: 11/20/22 22:37> Time Seen by Provider: 11/20/22 18:39 <Birgit Esparza PA-C - Last Filed: 11/20/22 22:37> History of Present Illness HPI Narrative: Patient is an 82-year-old female with a history of hypertension here for evaluation of posterior headache x1 day. Patient states that headache came on gradually and is described as a tense sensation in her posterior head. She denies any associated symptoms, denies visual changes, nausea, vomiting, weakness, fevers, chills. No neck stiffness. She attempted an ibuprofen with moderate relief of her symptoms. She denies history of previous similar headaches but per chart review patient was here in September, had full work-up that was reassuring. Patient was concerned that she was having a stroke which prompted ED evaluation. She was compliant with her antihypertensives this morning. <ASA Hill Last Filed: 11/20/22 22:37> Related Data Home Medications: Home Medications Medication Instructions Recorded Confirmed aspirin 81 mg tablet,delayed 81 mg PO DAILY 09/28/19 10/19/22 release (Adult Low Dose Aspirin) latanoprost 0.005 % eye drops 1 drop ophthalmic (eye) QPM 04/29/20 10/19/22 cholecalciferol (vitamin D3) 125 125 mcg PO DAILY 07/05/20 10/19/22 mcg (5,000 unit) capsule vit C 250 mg-vit E 90 mg-zinc 40 1 tablet PO BID 02/24/21 10/19/22 mg-copper 1 [id number] capsule (PreserVision AREDS-2) <ASA Hill Last Filed: 11/20/22 22:37> Allergies/Adverse Reactions: Allergies Allergy/AdvReac Type Severity Reaction Status Date / Time Sulfa (Sulfonamide Allergy Unknown stomach Verified 11/23/22 10:39 Antibiotics) cramping <ASA Hill Last Filed: 11/20/22 22:37> Review of Systems Review of Systems: Gen: Denies fevers or chills Eyes: Denies eye pain or visual change ENT: Denies congestion Respiratory: Denies shortness of breath or cough CV: Denies chest pain or palpitations GI: Denies abdominal pain nausea, emesis or diarrhea : denies burning, urgency, frequency or hematuria Musculoskeletal: Denies back pain or muscle pain Neuro: Reports headache Skin: Denies rash Except as documented, all other systems reviewed and negative <Birgit Esparza PA-C - Last Filed: 11/20/22 22:37> [facility] Past Medical History Medical History: Medical History Acquired claw toe of right foot Arthritis Asthma Bilateral knee pain Bilateral primary osteoarthritis of hip Effusion, right knee GERD (gastroesophageal reflux disease) Hallux valgus (acquired), right foot Hyperglycemia Hypertension Hypothyroidism Left knee DJD Lumbar spine pain Lumbar spondylolysis Osteoporosis Post-nasal drip Right knee DJD Rosacea Throat pain Wears glasses <Birgit Esparza PA-C - Last Filed: 11/20/22 22:37> Surgical History Surgical History: Surgical History H/O eye surgery Retinal reattachment 1970 H/O thyroidectomy 2004 History of appendectomy 2001 <Birgit Esparza PA-C - Last Filed: 11/20/22 22:37> Family History Family History: Family History Other Family history of hypertension Family history of TIAs Father Heart attack Mother CHF (congestive heart failure) Cerebrovascular accident Other Arthritis Family history of cardiovascular disease Heart disease Hypertension <ASA Hill Last Filed: 11/20/22 22:37> Social History Social History: Social History Social History: Caffeine-none Smoking status: Never
--- NOTE | 2022-11-20 19:22 | ECG_ITS ---
Measurements Intervals [place] Rate: 63 P: 25 [place]: 183 QRS: -23 QRSD: 92 T: 41 QT: 390 QTc: 399 Interpretive Statements SINUS RHYTHM MODERATE VOLTAGE CRITERIA FOR LVH, CONSIDER NORMAL VARIANT BORDERLINE ECG COMPARED TO ECG 10/09/2022 22:16:33 HEART RATE HAS INCREASED Electronically Signed On 11-21-2022 15:17:20 CDT by Miguel Almodovar M.D.
[2022-11-20 19:30] VITALS: BP 184/79; PULSE 77; RESP 18; O2SAT 99
[2022-11-20 19:59] LABS: Basophils Percent Auto 0.3 % (0.2-1.2); Eosinophils Absolute Auto 0.1 K/mm3 (0-0.3); Eosinophils Percent Auto 0.5 % (0-4.4); Hematocrit 46.3 % (37.0-47.0); Hemoglobin 14.9 g/dL (12.0-15.0); Immature Granulocyte Absolute 0.02 K/mm3 (0.00-0.031); Immature Granulocyte Percent A 0.2 % (0-0.5); Lymphocytes Absolute Auto 4.15 K/mm3 (0.9-3.2); Lymphocytes Percent Auto 43.5 % (18.3-44.2); Mean Corpuscular HGB Conc 32.2 g/dl (32-36); Mean Corpuscular Hemoglobin 28.3 pg (26-34); Mean Corpuscular Volume 87.9 fl (80-100); Mean Platelet Volume 10.1 fl (7.4-10.4); Monocytes Percent Auto 10.1 % (2.6-8.5); Neutrophils Absolute Auto 4.3 K/mm3 (1.3-6.7); Neutrophils Percent Auto 45.4 % (45.5-73.1); Platelet Count Result 270 k/mm3 (150-375); Red Blood Count 5.27 M/mm3 (4.2-5.4); White Blood Count 9.5 K/mm3 (4.5-10.0)
[2022-11-20 20:10] LABS: Alanine Aminotransferase 22 U/L (6-35); Albumin Level 4.5 g/dL (3.5-5.1); Alkaline Phosphatase 95 U/L (38-126); Anion Gap 4 mmol/L (8-16); Aspartate Amino Transferase 27 U/L (14-36); Bilirubin,Total 0.7 mg/dL (0.2-1.3); Blood Urea Nitrogen 17 mg/dL (7-17); Calcium 9.3 mg/dL (8.4-10.2); Carbon Dioxide 29 mmol/L (22-30); Chloride 106 mmol/L (98-107); Estimated CRCL calculation 48 ml/min; Estimated Glomerular Filt Rate > 60; Glucose 126 mg/dL (65-110); Potassium 3.9 mmol/L (3.4-5.0); Sodium 139 mmol/L (137-145)
[2022-11-20 20:17] LABS: Fractional Inspired Oxygen 21 %; HCO3 VBG 26.9 mEq/l (24.0-30.0); PCO2 VBG 46.4 mmHg (42.0-48.0); PO2 VBG 39.7 mmHg (35.0-45.0); pH VBG 7.381 (7.300-7.400)
[2022-11-20 20:19] LABS: Device ROOM AIR
[2022-11-20 20:32] LABS: Appearance Urine Clear (Clear); Bacteria Urine None Seen /hpf; Bilirubin Urine Negative (Negative); Blood Urine Negative (Negative); Color Urine Yellow (Yellow); Glucose Urine UA Negative (Negative); Hyaline Casts Urine Present /lpf; Ketones Urine 1+ mg/dL (Negative); Leukocyte Esterase Ur 1+ LEU/UL (Negative); Nitrate Urine Negative (Negative); Non Pathogenic Casts 0-2; Protein Urine Negative (Negative); RBC Urine 0-2 /hpf (0-2); Specific Grav Ur 1.012 (1.001-1.035); Squamous Epithelial Cell Urine Occasional /hpf (Few); Urobilinogen Urine 0.2 mg/dL (<2.0); WBC Urine 0-5 /hpf
[2022-11-20 20:33] LABS: Add Urine Microscopic? YES
[2022-11-20] MEDS: ACETAMINOPHEN/ASPIRIN/CAFFEINE 250-250-65 MG TABLET 1 TABLET PO (21:08)
[2022-11-20 21:25] VITALS: BP 169/77; PULSE 71; RESP 18; O2SAT 99
== END 2022-11-20 21:38 | disposition home or self-care (01) ==
PROVIDERS: Emergency Provider Physician Assistant; PCP Internal Medicine
DX: R51.9 Headache, unspecified (principal); I10 Essential (primary) hypertension; E89.0 Postprocedural hypothyroidism; J45.909 Unspecified asthma, uncomplicated; K21.9 Gastro-esophageal reflux disease without esophagitis; M17.0 Bilateral primary osteoarthritis of knee; M81.0 Age-related osteoporosis without current pathological fracture
CPT/HCPCS: 36415; 70450; 71046; 80053; 81001; 82803; 85025; 93005; 99284; A9270

== ENCOUNTER 2022-12-02 09:34 | Emergency (ER) | payer MEDICARE, SELFPAY ==
[2022-12-02] VITALS (12 sets, daily range): BP systolic 147–178; BP diastolic 69–90; PULSE 61–83; RESP 10–17; TEMP 36.6; O2SAT 92–100
--- NOTE | 2022-12-02 09:44 | ECG_ITS ---
Measurements Intervals [place] Rate: 61 P: 37 [place]: 191 QRS: -7 QRSD: 95 T: 23 QT: 419 QTc: 423 Interpretive Statements SINUS RHYTHM COMPARED TO ECG 11/20/2022 19:41:00 NO SIGNIFICANT CHANGES Electronically Signed On 12-02-2022 15:53:42 CDT by Shelbi Drake M.D.
[2022-12-02 10:22] LABS: Basophils Percent Auto 0.2 % (0.2-1.2); Eosinophils Percent Auto 0.1 % (0-4.4); Hematocrit 42.2 % (37.0-47.0); Hemoglobin 13.8 g/dL (12.0-15.0); Immature Granulocyte Absolute 0.02 K/mm3 (0.00-0.031); Immature Granulocyte Percent A 0.2 % (0-0.5); Lymphocytes Absolute Auto 1.96 K/mm3 (0.9-3.2); Lymphocytes Percent Auto 18.9 % (18.3-44.2); Mean Corpuscular HGB Conc 32.7 g/dl (32-36); Mean Corpuscular Hemoglobin 28.7 pg (26-34); Mean Corpuscular Volume 87.7 fl (80-100); Mean Platelet Volume 10.4 fl (7.4-10.4); Monocytes Absolute Auto 0.6 K/mm3 (0.1-0.6); Monocytes Percent Auto 6.1 % (2.6-8.5); Neutrophils Absolute Auto 7.7 K/mm3 (1.3-6.7); Neutrophils Percent Auto 74.5 % (45.5-73.1); Platelet Count Result 236 k/mm3 (150-375); Red Blood Count 4.81 M/mm3 (4.2-5.4); Red Cell Distribution Width 13.1 % (11.5-14.5); White Blood Count 10.4 K/mm3 (4.5-10.0)
[2022-12-02 10:28] LABS: Appearance Urine Clear (Clear); Bacteria Urine None Seen /hpf; Bilirubin Urine Negative (Negative); Blood Urine Negative (Negative); Color Urine Yellow (Yellow); Glucose Urine UA Negative (Negative); Ketones Urine Trace mg/dL (Negative); Leukocyte Esterase Ur 1+ LEU/UL (Negative); Need Manual Microscopic Reviewed; Nitrate Urine Negative (Negative); Non Pathogenic Casts 0-2; Protein Urine Negative (Negative); RBC Urine 0-2 /hpf (0-2); Specific Grav Ur 1.014 (1.001-1.035); Squamous Epithelial Cell Urine Occasional /hpf (Few); Urobilinogen Urine 0.2 mg/dL (<2.0); WBC Urine 0-5 /hpf
[2022-12-02] MEDS: SODIUM CHLORIDE 0.9% IV 500 ML 999 ML IV CONT (10:28)
[2022-12-02] MEDS: KETOROLAC 30 MG/ML VIAL (*BKC) 15 MG IV PUSH (10:29)
[2022-12-02] MEDS: MECLIZINE HCL 25 MG TABLET PO (10:31)
[2022-12-02 10:36] LABS: Alanine Aminotransferase 22 U/L (6-35); Alkaline Phosphatase 82 U/L (38-126); Anion Gap 4 mmol/L (8-16); Aspartate Amino Transferase 29 U/L (14-36); Bilirubin,Total 0.5 mg/dL (0.2-1.3); Blood Urea Nitrogen 22 mg/dL (7-17); Calcium 8.9 mg/dL (8.4-10.2); Carbon Dioxide 30 mmol/L (22-30); Chloride 105 mmol/L (98-107); Estimated Glomerular Filt Rate > 60; Glucose 135 mg/dL (65-110); Potassium 3.9 mmol/L (3.4-5.0); Sodium 139 mmol/L (137-145)
[2022-12-02 10:46] LABS: Add Urine Microscopic? YES
--- NOTE | 2022-12-02 11:11 | PC.NURSE ---
Report received from Sindhu Gordon incuding history and physical and plan of care
--- NOTE | 2022-12-02 12:14 | ED.GENADULT ---
HPI - General Adult General Chief complaint: Dizziness Stated complaint: MIGRAINE Time Seen by Provider: 12/02/22 09:41 History of Present Illness HPI narrative: Patient is an 82-year-old female who presents ER with dizziness. Spinning. Makes her feel unsteady when she ambulates. She has mild headache that is frontal and throbbing. No fevers chills or sweats. No sinus congestion sore throat or cough. She is supposed to follow-up with her PCP today but she felt unbalanced and told them should be coming to the ER for further evaluation. Symptoms are better when sitting still. Has not taken any medication to modify her dizziness. Related Data Home Medications Medication Instructions Recorded Confirmed aspirin 81 mg tablet,delayed 81 mg PO DAILY 09/28/19 10/19/22 release (Adult Low Dose Aspirin) latanoprost 0.005 % eye drops 1 drop ophthalmic (eye) QPM 04/29/20 10/19/22 cholecalciferol (vitamin D3) 125 125 mcg PO DAILY 07/05/20 10/19/22 mcg (5,000 unit) capsule vit C 250 mg-vit E 90 mg-zinc 40 1 tablet PO BID 02/24/21 10/19/22 mg-copper 1 [id number] capsule (PreserVision AREDS-2) Allergies Allergy/AdvReac Type Severity Reaction Status Date / Time Sulfa (Sulfonamide Allergy Unknown stomach Verified 12/02/22 09:43 Antibiotics) cramping Review of Systems Review of Systems: All systems reviewed & are unremarkable except as noted in HPI and below Constitutional: Constitutional: Denies chills, Denies fatigue and Denies fever(s) ENT: Denies nasal congestion and Denies sore throat Cardiovascular: Cardiovascular: Denies chest pain, Denies rapid heart rate and Denies radiating jaw, neck or arm pain Respiratory: Respiratory: Denies cough and Denies dyspnea Gastrointestinal: Gastrointestinal: Denies abdominal pain, Denies nausea and Denies vomiting Neurologic: Reports dizziness, Denies syncope and Reports headache(s) [facility] Past Medical History Medical History Acquired claw toe of right foot Arthritis Asthma Bilateral knee pain Bilateral primary osteoarthritis of hip Effusion, right knee GERD (gastroesophageal reflux disease) Hallux valgus (acquired), right foot Hyperglycemia Hypertension Hypothyroidism Left knee DJD Lumbar spine pain Lumbar spondylolysis Osteoporosis Post-nasal drip Right knee DJD Rosacea Throat pain Wears glasses Surgical History Surgical History H/O eye surgery Retinal reattachment 1970 H/O thyroidectomy 2004 History of appendectomy 2002 Family History Family History Other Family history of hypertension Family history of TIAs Father Heart attack Mother CHF (congestive heart failure) Cerebrovascular accident Other Arthritis Family history of cardiovascular disease Heart disease Hypertension Social History Social History Social History: Caffeine-none Smoking status: Never smoker Alcohol intake: never Substance use: never Substance use type: does not use Lack of Transportation: No Lack of Food: Never True Current Housing: I Have Housing Concerned About Future Housing: No Difficulty Paying Gas/Electric Bills: No Difficulty Paying for Meds: No Currently Unemployed: No Education: High School Diploma/GED Difficulty w/ Childcare or Family Care: No Gender identity (if verbalized by the patient): Female Exam Narrative: GENERAL: Well-appearing, well-nourished, and in no acute distress. HEAD: Normocephalic, atraumatic. EYES: PERRL and EOMI. ENT: Mucous membranes moist. CHEST: Clear to auscultation. No respiratory distress. HEART: Regular rate and rhythm. Normal peripheral pulses. ABDOMEN: Soft, nontender, nondistended. EXTREMITIES: Normal range of motion. No edema. SKIN: Warm, dry, no r
== END 2022-12-02 12:49 | disposition home or self-care (01) ==
PROVIDERS: Emergency Provider Emergency Medicine; PCP Internal Medicine
DX: R42 Dizziness and giddiness (principal); J45.909 Unspecified asthma, uncomplicated; I10 Essential (primary) hypertension; E89.0 Postprocedural hypothyroidism; K21.9 Gastro-esophageal reflux disease without esophagitis; M16.0 Bilateral primary osteoarthritis of hip; M81.0 Age-related osteoporosis without current pathological fracture; M17.0 Bilateral primary osteoarthritis of knee; Z79.82 Long term (current) use of aspirin
CPT/HCPCS: 36415; 80053; 81001; 85025; 93005; 96361; 96374; 99284; A9270; J1885; J7040

== ENCOUNTER 2024-05-22 14:22 | Emergency (ER) | payer MEDICARE, SELFPAY ==
--- NOTE | ~2024-05-22 | XR_ITS ---
EXAMINATION: XR abdomen/kub 1V DATE: 05/22/2024 15:52 INDICATION: Constipation. Right lower quadrant abdominal pain. TECHNIQUE: A supine view of the abdomen on 2 radiographs was obtained. COMPARISON: CT abdomen and pelvis 10/30/2022 FINDINGS: There are no dilated loops of bowel. There is a large volume of stool in the colon. There a re surgical clips in right abdomen. IMPRESSION: 1. Nonobstructive bowel gas pattern. Reviewed, dictated and finalized at location [facility].
[2024-05-22 14:23] VITALS: BP 149/70; PULSE 60; RESP 20; TEMP 37; O2SAT 100
[2024-05-22 15:23] LABS: EDUAAPPEAR Clear; EDUABILI Negative (Negative); EDUABLOOD Negative (Negative); EDUACOLOR1 Light/Pale; EDUAGLUCOSE Negative (Negative); EDUAKETONE Negative (Negative); EDUALEUKO Negative (Negative); EDUANITRATE Negative (Negative); EDUAPROTEIN Negative (Negative); EDUAUROBILI 0.2
--- NOTE | 2024-05-22 15:23 | ED.ABDPAIN ---
HPI - Abdominal Pain General Chief Complaint: Abdominal Pain Stated Complaint: Right Flank Pain Time Seen by Provider: 05/22/24 15:23 Source: patient Mode of arrival: ambulatory Limitations: no limitations History of Present Illness HPI narrative: 84-year-old female presents with complaint of right low back pain radiating around to right lower abdomen. Pain for approximately 2 days. Reports having very small bowel movements. Unable to go today. Afebrile. No urinary symptoms. All systems reviewed and negative except as noted above. Related Data Home Medications Medication Instructions Recorded Confirmed aspirin 81 mg tablet,delayed 81 mg PO DAILY 09/28/19 05/22/24 release (Adult Low Dose Aspirin) latanoprost 0.005 % eye drops 1 drop ophthalmic (eye) QPM 04/29/20 05/22/24 cholecalciferol (vitamin D3) 125 125 mcg PO DAILY 07/05/20 05/22/24 mcg (5,000 unit) capsule brimonidine 0.2 %-timolol 0.5 % 1 drp EACH EYE BID 05/22/24 05/22/24 eye drops (Combigan) doxycycline hyclate 20 mg tablet 20 mg PO BID 05/22/24 05/22/24 sodium hyaluronate (viscosup) 16.8 16.8 mg intra-articular WEEKLY 05/22/24 05/22/24 mg/2 mL intra-articular syringe (Gelsyn-3) verapamil 240 mg tablet,extended 120 mg PO QPM 05/22/24 05/22/24 release Allergies Allergy/AdvReac Type Severity Reaction Status Date / Time Sulfa (Sulfonamide Allergy Unknown stomach Verified 05/22/24 14:27 Antibiotics) cramping Review of Systems Review of Systems: CONSTITUTIONAL: Denies fever, chills, or sweats. EYES: Denies visual changes, redness, or discharge. ENT: Denies rhinorrhea, congestion, sore throat, or otalgia. CARDIOVASCULAR: Denies chest pain, palpitations, or edema. RESPIRATORY: Denies cough or dyspnea. GASTROINTESTINAL: Reports right lower abdominal pain with constipation. Denies nausea, vomiting, or diarrhea. GENITOURINARY: Denies dysuria or hematuria. SKIN: Denies rash or itching. MUSCULOSKELETAL: Denies back pain, joint pain, or myalgia. NEUROLOGIC: Denies headache, numbness, or weakness. PSYCHIATRIC: Denies anxiety or depression. All other systems reviewed are negative, except as documented in HPI. [facility] Past Medical History Medical History Acquired claw toe of right foot Arthritis Asthma Bilateral knee pain Bilateral primary osteoarthritis of hip Effusion, right knee Elevated brain natriuretic peptide (BNP) level GERD (gastroesophageal reflux disease) Hallux valgus (acquired), right foot Hospital discharge follow-up Hyperglycemia Hypertension Hypothyroidism Left knee DJD Lumbar spine pain Lumbar spondylolysis Osteoporosis Post-nasal drip Right knee DJD Rosacea Swelling of both lower extremities Throat pain Vertigo Wears glasses Surgical History Surgical History H/O eye surgery Retinal reattachment 1970 H/O thyroidectomy 2004 History of appendectomy 2002 Family History Family History Other Family history of hypertension Family history of TIAs Father Heart attack Mother CHF (congestive heart failure) Cerebrovascular accident Other Arthritis Family history of cardiovascular disease Heart disease Hypertension Social History Social History Social History: Caffeine-none Smoking status: Never smoker Alcohol intake: never Substance use: never Substance use type: does not use Do You Feel Safe in your Home?: Yes Lack of Transportation: No Lack of Food: Never True Current Housing: I Have Housing Concerned About Future Housing: No Difficulty Paying Gas/Electric Bills: No Difficulty Paying for Meds: No Currently Unemployed: No Education: High School Diploma/GED Difficulty w/ Childcare or Family Care: No Gender identity (if verbalized b
== END 2024-05-22 16:05 | disposition home or self-care (01) ==
PROVIDERS: Emergency Provider Nurse Practitioner Family; PCP Internal Medicine
DX: K59.00 Constipation, unspecified (principal); M16.0 Bilateral primary osteoarthritis of hip; K21.9 Gastro-esophageal reflux disease without esophagitis; I10 Essential (primary) hypertension; E89.0 Postprocedural hypothyroidism; M17.0 Bilateral primary osteoarthritis of knee; M47.816 Spondylosis without myelopathy or radiculopathy, lumbar region; J45.909 Unspecified asthma, uncomplicated; Z79.82 Long term (current) use of aspirin
CPT/HCPCS: 74018; 81003; 99213; G0463

== ENCOUNTER 2024-10-24 16:38 | Emergency (ER) | payer MEDICARE, SELFPAY ==
--- NOTE | ~2024-10-24 | XR_ITS ---
CHEST RADIOGRAPH, PA AND LATERAL CLINICAL HISTORY: cough. EXPOSED TO COVID . COMPARISON: 11/20/2022 TECHNIQUE: PA and lateral views of the chest. FINDINGS The cardiomediastinal silhouette is unremarkable. The lungs are clear. Visualized osseous structures and soft tissues are unremarkable. IMPRESSION: No focal infiltrate or effusion. Reviewed, dictated and finalized at location A.
[2024-10-24 16:47] VITALS: BP 146/80; PULSE 101; RESP 16; TEMP 37.1; O2SAT 96
--- NOTE | 2024-10-24 17:17 | ED_ITS ---
HPI - Weakness General Chief complaint: Weakness <Birgit Barlow PA-C - Last Filed: 10/27/24 16:58> Stated complaint: Body ache, weakness, cough exp COVID <Birgit Barlow PA-C - Last Filed: 10/27/24 16:58> Time Seen by Provider: 10/24/24 17:17 <Birgit Barlow PA-C - Last Filed: 10/27/24 16:58> Focused HPI: This is a 84 year old female that presents to the ER for cold symptoms. Reports cough, dizziness, congestion. Ongoing over the last couple of days. Reports she has been exposed to COVID. Denies fevers, shortness of breath. GENERAL: Elderly, well-nourished, and in no acute distress. HEAD: Normocephalic, atraumatic. CHEST: Clear to auscultation. ?No respiratory distress. HEART: Regular rate and rhythm.? NEURO: ?Alert and oriented x3. Patient screened in triage and initial orders placed.? ?Additional care and disposition to be based upon?diagnostic testing and treatment. <Birgit Barlow PA-C - Last Filed: 10/27/24 16:58> History of Present Illness HPI Narrative: Agree with the HPI above. <Jake Lieberman MD - Last Filed: 10/24/24 22:00> Related Data Home medications: Home Medications ?Medication ?Instructions ?Recorded ?Confirmed ?Last Taken ?Type aspirin 81 mg tablet,delayed 81 mg PO DAILY 09/28/19 10/09/24 Unknown History release (Adult Low Dose Aspirin) latanoprost 0.005 % eye drops 1 drop ophthalmic (eye) QPM 04/29/20 10/09/24 Unknown History cholecalciferol (vitamin D3) 125 125 mcg PO DAILY 07/05/20 10/09/24 Unknown History mcg (5,000 unit) capsule brimonidine 0.2 %-timolol 0.5 % 1 drp EACH EYE BID 05/22/24 10/09/24 Unknown History eye drops (Combigan) sodium hyaluronate (viscosup) 16.8 16.8 mg intra-articular WEEKLY 05/22/24 10/09/24 Unknown History mg/2 mL intra-articular syringe (Gelsyn-3) <Birgit Barlow PA-C - Last Filed: 10/27/24 16:58> Allergies/Adverse reactions: Allergies Allergy/AdvReac Type Severity Reaction Status Date / Time Sulfa (Sulfonamide Allergy Unknown stomach Verified 10/09/24 12:16 Antibiotics) cramping <Birgit Barlow PA-C - Last Filed: 10/27/24 16:58> Review of Systems 2 Review of Systems: As reviewed above in HPI <Jake Lieberman MD - Last Filed: 10/24/24 22:00> [facility] Past Medical History Medical History: Medical History [place] of toe Vertigo Swelling of both lower extremities Hospital discharge follow-up Elevated brain natriuretic peptide (BNP) level Lumbar spine pain Bilateral primary osteoarthritis of hip Acquired claw toe of right foot Hallux valgus (acquired), right foot Rosacea Effusion, right knee Left knee DJD Right knee DJD Arthritis Osteoporosis GERD (gastroesophageal reflux disease) Wears glasses Bilateral knee pain Throat pain Post-nasal drip Lumbar spondylolysis Hyperglycemia Asthma Hypothyroidism Hypertension <Birgit Barlow PA-C - Last Filed: 10/27/24 16:58> Surgical History Surgical History: Surgical History History of appendectomy 2001 H/O thyroidectomy 2004 H/O eye surgery Retinal reattachment 1970 <Birgit Barlow PA-C - Last Filed: 10/27/24 16:58> Family History Family History: Family History Other Family history of hypertension Family history of TIAs Father Heart attack Mother CHF (congestive heart failure) Cerebrovascular accident Other Arthritis Family history of cardiovascular disease Heart disease Hypertension <Birgit Barlow PA-C - Last Filed: 10/27/24 16:58> Social History Social History: Social History Social History: Caffeine-none Smoking status: Never smoker Alcohol intake: never Substance use: never Substance use type: does not use Do You Feel Safe in your Home?: Yes Lack of Transportation: No Lack of Food: Never True Current Housing: I Have Housing Concerned About Future Housing: No Difficulty Paying Gas/Electric Bills: No Difficulty Paying for Meds: No Currently Unemployed: No Education: High School Diploma/GED Difficulty w/ Childcare or Family Care: No Gender identity (if verbalized by the patient): Female <Birgit Barlow PA-C - Last Filed: 10/27/24 16:58> Exam 2 Narrative: GENERAL: [Well-appearing, well-nourished, and in no acute distress.] HEAD: [Normocephalic, atraumatic.] EYES: [PERRLA and EOMI.] ENT: Nares clear, no rhinorrhea or epistaxis. Mucous membranes moist. NECK: Supple. CHEST: [Clear to auscultation. No respiratory distress.] HEART: [Regular rate and rhythm]. No murmur heard. [Normal peripheral pulses.] ABDOMEN: [Soft, nondistended], [nontender], [No rigidity or guarding] EXTREMITIES: Normal range of motion. [No edema.] SKIN: Warm, dry, no rash. NEURO: [No focal deficits]. Alert and oriented [x3.] PSYCH: [Normal mood and affect.] <Jake Lieberman MD - Last Filed: 10/24/24 22:00> Course Vital Signs Vital signs: Vital Signs Temperature 98.7 F 10/24/24 16:47 Pulse Rate 101 H 10/24/24 16:47 Respiratory Rate 16 10/24/24 16:47 Blood Pressure 146/80 H 10/24/24 16:47 Pulse Oximetry 96 10/24/24 16:47 Oxygen Delivery Room Air 10/24/24 16:47 Temperature 98.3 F 10/24/24 21:45 Pulse Rate 128 H 10/24/24 21:45 Respiratory Rate 14 10/24/24 21:45 Blood Pressure 158/94 H 10/24/24 21:45 Pulse Oximetry 100 10/24/24 21:45 Oxygen Delivery Room Air 10/24/24 16:47 <Birgit Barlow PA-C - Last Filed: 10/27/24 16:58> Vital Signs Temperature 98.7 F 10/24/24 16:47 Pulse Rate 101 H 10/24/24 16:47 Respiratory Rate 16 10/24/24 16:47 Blood Pressure 146/80 H 10/24/24 16:47 Pulse Oximetry 96 10/24/24 16:47 Oxygen Delivery Room Air 10/24/24 16:47 Temperature 98.3 F 10/24/24 21:45 Pulse Rate 128 H 10/24/24 21:45 Respiratory Rate 14 10/24/24 21:45 Blood Pressure 158/94 H 10/24/24 21:45 Pulse Oximetry 100 10/24/24 21:45 Oxygen Delivery Room Air 10/24/24 16:47 <Jake Lieberman MD - Last Filed: 10/24/24 22:00> MDM - Weakness MDM Narrative Medical decision making narrative: 84-year-old female presenting to the ER for evaluation after she had cough for the last 2 days and concern for exposure to COVID. She has otherwise been well without any complaints recently. Denies any shortness a breath, chest pain, nausea, vomiting. She ambulates unassisted. Was visiting a family member at a local nursing facility. People around her were coughing frequently she thinks she may have caught something from them. She is otherwise not any distress, has normal vital signs of any tachycardia, fever, hypoxia. She had a dry cough for last 2 days and clear breath sounds. Suspicion presently for COVID versus influenza, bronchitis less likely pneumonia or consolidation. Chest x-ray was obtained, COVID swabs obtained and basic laboratory studies ordered. Patient's workup was largely unremarkable with normal electrolyte panel, normal renal and hepatic function panel. Normal glucose. Chest x-ray without any consolidation or pneumonia. Patient did test positive for influenza which explains for cough. Went over symptomatic treatment options with the patient as well as offering her Tamiflu although recommendations given her well appearance with normal vitals to hold off on taking this medication and rather try [id number] therapies and prescription benzonatate. Patient will be sent home with medications and return precautions as well as instructions to follow- up with her PCP. <Jake Lieberman MD - Last Filed: 10/24/24 22:00> Medical Records Attestation: I reviewed the patient's medical records. <Jake Lieberman MD - Last Filed: 10/24/24 22:00> Lab Data Attestation: I reviewed the patient's lab results. <Jake Lieberman MD - Last Filed: 10/24/24 22:00> Result diagrams: 10/24/24 17:33 10/24/24 17:33 <Birgit Barlow PA-C - Last Filed: 10/27/24 16:58> Labs: Lab Results 10/24/24 Range/Units 17:33 WBC Cancelled RBC Cancelled Hgb Cancelled Hct Cancelled MCV Cancelled MCH Cancelled MCHC Cancelled RDW Cancelled Plt Count Cancelled MPV Cancelled Immature Gran % (Auto) Cancelled Neut % (Auto) Cancelled Lymph % (Auto) Cancelled [facility] % (Auto) Cancelled Eos % (Auto) Cancelled Baso % (Auto) Cancelled Lymph # (Auto) Cancelled [facility] # (Auto) Cancelled Eos # (Auto) Cancelled Baso # (Auto) Cancelled Abs Immat Gran (auto) Cancelled Absolute Neuts (auto) Cancelled Absolute Nucleated RBC Cancelled Nucleated RBC % Cancelled % Immature Plt Fraction Cancelled Sodium 139 (137-145) mmol/L Potassium 4.3 (3.4-5.0) mmol/L Chloride 105 (98-107) mmol/L Carbon Dioxide 24 (22-30) mmol/L Anion Gap 10 (4-12) mmol/L BUN 17 (7-17) mg/dL Creatinine 0.79 (0.7-1.0) mg/dL Estim Creat Clear Calc 36 ml/min Estimated GFR > 60 (59 - ) Glucose 138 H (65-110) mg/dL Calcium 9.1 (8.4-10.2) mg/dL Total Bilirubin 0.8 (0.2-1.3) mg/dL AST 26 (14-36) U/L ALT 21 (6-35) U/L Alkaline Phosphatase 88 (38-126) U/L Total Protein 7.0 (6.3-8.2) g/dL Albumin 4.3 (3.5-5.1) g/dL Influenza A (RT-PCR) Positive A (Negative) Influenza B (RT-PCR) Negative (Negative) RSV (RT-PCR) Negative (Negative) SARS-CoV-2 RNA (RT-PCR) Negative (Negative) <Birgit Barlow PA-C - Last Filed: 10/27/24 16:58> Lab Results 10/24/24 Range/Units 17:33 WBC Cancelled RBC Cancelled Hgb Cancelled Hct Cancelled MCV Cancelled MCH Cancelled MCHC Cancelled RDW Cancelled Plt Count Cancelled MPV Cancelled Immature Gran % (Auto) Cancelled Neut % (Auto) Cancelled Lymph % (Auto) Cancelled [facility] % (Auto) Cancelled Eos % (Auto) Cancelled Baso % (Auto) Cancelled Lymph # (Auto) Cancelled [facility] # (Auto) Cancelled Eos # (Auto) Cancelled Baso # (Auto) Cancelled Abs Immat Gran (auto) Cancelled Absolute Neuts (auto) Cancelled Absolute Nucleated RBC Cancelled Nucleated RBC % Cancelled % Immature Plt Fraction Cancelled Sodium 139 (137-145) mmol/L Potassium 4.3 (3.4-5.0) mmol/L Chloride 105 (98-107) mmol/L Carbon Dioxide 24 (22-30) mmol/L Anion Gap 10 (4-12) mmol/L BUN 17 (7-17) mg/dL Creatinine 0.79 (0.7-1.0) mg/dL Estim Creat Clear Calc 36 ml/min Estimated GFR > 60 (59 - ) Glucose 138 H (65-110) mg/dL Calcium 9.1 (8.4-10.2) mg/dL Total Bilirubin 0.8 (0.2-1.3) mg/dL AST 26 (14-36) U/L ALT 21 (6-35) U/L Alkaline Phosphatase 88 (38-126) U/L Total Protein 7.0 (6.3-8.2) g/dL Albumin 4.3 (3.5-5.1) g/dL Influenza A (RT-PCR) Positive A (Negative) Influenza B (RT-PCR) Negative (Negative) RSV (RT-PCR) Negative (Negative) SARS-CoV-2 RNA (RT-PCR) Negative (Negative) <Jake Lieberman MD - Last Filed: 10/24/24 22:00> Imaging Data Attestation: I personally reviewed and interpreted this imaging study as follows: < Jake Lieberman MD - Last Filed: 10/24/24 22:00> My impression: Impressions Chest X-Ray 10/24/24 17:33 IMPRESSION: No focal infiltrate or effusion. <Jake Lieberman MD - Last Filed: 10/24/24 22:00> Critical Care Time Critical Care Time Critical Care Time: No <Birgit Barlow PA-C - Last Filed: 10/27/24 16:58> Discharge Plan Discharge Clinical Impression: Influenza A (H1N1) <Birgit Barlow PA-C - Last Filed: 10/27/24 16:58> Patient Disposition: Home, Self-Care <Birgit Barlow PA-C - Last Filed: 10/27/24 16:58> Condition: Stable <Birgit Barlow PA-C - Last Filed: 10/27/24 16:58> Instructions: Antibiotic Form, Influenza (DC) <Birgit Barlow PA-C - Last Filed: 10/27/24 16:58> Additional Instructions: You tested positive for influenza. Your workup otherwise is reassuring, no signs of pneumonia, normal labs. We will send you home with some symptom control medications. Follow-up with regular doctor. Return with any new or worsening concerns at any time. <Birgit Barlow PA-C - Last Filed: 10/27/24 16:58> Patient Language: Qatari <Birgit Barlow PA-C - Last Filed: 10/27/24 16:58> Prescriptions: New benzonatate 200 mg capsule 200 mg PO TID PRN (Reason: cough) Qty: 20 0RF guaifenesin [Mucinex] 1,200 mg tablet extended release 12hr 1,200 mg PO Q12H Qty: 20 0RF No Action brimonidine-timolol [Combigan] 0.2-0.5 % drops 1 drp EACH EYE BID Gelsyn-3 16.8 mg/2 mL syringe 16.8 mg INTRA-ARTICULAR WEEKLY cholecalciferol (vitamin D3) 125 mcg (5,000 unit) capsule 125 mcg PO DAILY aspirin [Adult Low Dose Aspirin] 81 mg tablet,delayed release (DR/EC) 81 mg PO DAILY latanoprost 0.005 % drops 1 drop ophthalmic (eye) QPM omeprazole 20 mg capsule,delayed release(DR/EC) 20 mg PO DAILY Qty: 90 3RF silver nitrate 55 PPM gel 1 applic topical DAILY Qty: 45 0RF Rx Instructions: Apply to toe right foot, daily salicylic acid 40 % adhesive patch,medicated 1 applic topical Q2D Qty: 18 2RF verapamil 240 mg tablet extended release 120 mg PO QPM Qty: 45 1RF lisinopril 5 mg tablet 5 mg PO DAILY Qty: 90 1RF levothyroxine [Synthroid] 125 mcg tablet See Rx Instructions .ROUTE .COMPLEX Qty: 90 0RF Dose Instruction: TAKE 1 TABLET BY MOUTH DAILY Rx Instructions: TAKE 1 TABLET BY MOUTH DAILY simvastatin 10 mg tablet 10 mg PO DAILY Qty: 90 1RF <Birgit Barlow PA-C - Last Filed: 10/27/24 16:58> Follow-up/Referrals: Raffaele Hogan, [Primary Care Provider] - <Birgit Barlow PA-C - Last Filed: 10/27/24 16:58> Time of Disposition: 20:55 <Birgit Barlow PA-C - Last Filed: 10/27/24 16:58> 20:55 <Jake Lieberman MD - Last Filed: 10/24/24 22:00>
[2024-10-24 17:49] LABS: Alanine Aminotransferase 21 U/L (6-35); Albumin Level 4.3 g/dL (3.5-5.1); Alkaline Phosphatase 88 U/L (38-126); Anion Gap 10 mmol/L (4-12); Aspartate Amino Transferase 26 U/L (14-36); Bilirubin,Total 0.8 mg/dL (0.2-1.3); Blood Urea Nitrogen 17 mg/dL (7-17); Calcium 9.1 mg/dL (8.4-10.2); Carbon Dioxide 24 mmol/L (22-30); Chloride 105 mmol/L (98-107); Estimated CRCL calculation 36 ml/min; Estimated Glomerular Filt Rate > 60; Glucose 138 mg/dL (65-110); Potassium 4.3 mmol/L (3.4-5.0); Sodium 139 mmol/L (137-145)
--- OUTSIDE RECORDS SUMMARY | 2024-10-24 18:10 | XMS_ITS | Clinical Summary ---
Author Organization [facility] dicine Address [address] [place] [id number] Care Team Providers Care Clinical Scientist Name Role Phone Raffaele Kaiser MD Primary Care Provider U navailable Allergies Active Allergy Reactions Criticality Noted Date Comments Sulfa (Sulfonamide Antibiotics) Abdominal Pain Low 12/29/2011 Sulfamethoxazole-Trimethoprim Abdominal Pain Low Medications SYNTHROID 125 mcg Oral Tab Take 125 mcg by mouth daily. Active Cholecalcifero l, Vitamin D3, (VITAMIN D) 5,000 unit Oral Tab Take 1 Tab by mouth daily. 100 Tab 6 1 Active fluocinonide (LIDEX) 0.05 % CreamIndicatio ns:Eczema Apply to affected area 2 times daily. 15 Gram 1 4 Active mometasone (NASONEX) 50 mcg/actuation Ernest, Non-Aerosol Administer 1 Ernest in each nostril 2 times daily. 17 Gram 12 4 Active verapamil SR (CALAN SR) 240 mg tablet Take 1 Tab by mouth see administration instructions. 1/2 daily 135 Tab 3 4 Active simvastatin (ZOCOR) 20 mg tablet TAKE 1 TABLET BY MOUTH DAILY 90 Tab 1 4 Active azithromycin (ZITHROMAX) 250 mg tablet Take 250 mg by mouth daily. Take 2 tabs the first day and 1 tab days 2-5 Active FLUVIRIN [id number] 45 mcg (15 mcg x 3)/0.5 mL Suspension 4 Active predniSONE (DELTASONE) 10 mg tablet 6 pills for 2 days 4 pills for 3 days 3 pills for 3 days 2 pills for 2 days 1 pill for 2 days then stop 39 Tab 0 4 Active simvastatin (ZOCOR) 20 mg tablet TAKE 1 TABLET BY MOUTH DAILY 90 Tab 0 5 Active Active Problems Patient Care Coordination No te Formatting of this note migh t be different from the original. HCC coding review 10/11/13 Problem Noted Date Diagnosed Date Other screening mammogram 09/27/2013 Umbilical hernia 03/16/2012 Tubular adenoma of colon 03/08/2012 Diverticulitis of colon (wit hout mention of hemorrhage)(562.11) 02/08/2012 Hematuria, gross 01/08/2012 Vitamin D deficiency 12/18/2010 Cervical spondylosis 06/28/2010 GERD (gastroesophageal reflux disease) 9 Routine general medical exam ination at a health care facility 12/02/2006 Essential hypertension, benign 11/10/2005 Unspecified hypothyroidism 11/10/2005 Other malaise and fatigue 11/10/2005 Other and unspecified hyperlipidemia 11/10/2005 Resolved Problems Problem Noted Date Diagnosed Date Resolved Date Abdominal pain, generalized 12/19/2012 04/13/2013 Eczema 12/19/2012 05/04/2014 Tubulovillous adenoma of colon 03/08/2012 03/08/2012 Abdominal pain 02/08/2012 06/04/2012 Hoarseness of voice 07/16/2011 06/04/20 12 Overview (08/03/2011): ent eval was neg cw with gerd Sialolithiasis 06/25/2011 07/16/2011 Neck pain 06/26/2010 11/05/2010 Dyspepsia 06/12/2009 11/05/2010 Acute nonsuppurative otitis media, unspecified 07/05/2007 06/05/2008 Need for prophylactic vaccin ation against Streptococcus pneumoniae (pneumococcus) 11/19/2005 06/05/2008 Screening for malignant neop lasm of the rectum 11/19/2005 10/13/2012 Encounter for long-term (cur rent) use of other medications 11/10/2005 10/13/2012 Other voice and resonance disorders 03/26/2005 06/05/2008 Immunizations Immunization Administration Dates Next Due (PNEUMOVAX 23)(50 YRS UP) PN EUMOCOCCAL POLYSACCHARIDE (PPV23) 0.5 ML, IM 11/19/2005 (PREVNAR 13)(6 WKS UP) PNEUM OCOCCAL CONJUGATE (PCV13) 0.5 ML, IM 11/06/2013 (TDVAX)(7 YRS UP) TETANUS AN D DIPHTHERIA TOXOIDS, ADSORBED (2 LF OF TETANUS TOXOID AND 2 LF OF DIPHTHERIA TOXOID), 0.5ML (PF), IM 08/16/2003 Influenza Seasonal Unspecifi ed Formulation IM 05/31/2013,08/19/2012,06/05/2010 Zoster Vaccine Live SQ 05/16/2011 Family History Medical History Relation Name Comments Other Brother mva Heart Disease Father 52 Unknown Maternal Grandfather Unknown Maternal Grandmother Stroke Mother 59 Healthy Other Heart Disease Other High Cholesterol Other Hypertension Other Other Other Stroke Other Unknown Other Unknown Paternal Grandfather Unknown Paternal Grandmother Asthma Neg Hx Breast Cancer Neg Hx Cancer Neg Hx Celiac Disease Neg Hx Colon Cancer Neg Hx Colon Polyps Neg Hx Crohn's Disease Neg Hx Diabetes Neg Hx Liver Disease Neg Hx Lung Cancer Neg Hx Melanoma Neg Hx Osteoporosis Neg Hx Ovarian Cancer Neg Hx Pancreatic Cancer Neg Hx Relation Name Status Comments Brother Father Maternal Grandfather Maternal Grandmother Mother Other Paternal Grandfather Paternal Grandmother Social History Tobacco Use Types Packs/Day Years Used Date Smoking Tobacco: Never Smokeless Tobacco: Never Alcohol Use Standard Drinks/Week Comments No 0 (1 standard drink = 0.6 oz pur e alcohol) RARE Comments No Sex and Gender Information Value Date Recorded Sex Assigned at Not on file Legal 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 Gender Identity Not on file Sexual Orientation Not on file Occupation Industry Job Start Date Job End Date Not on file Not on file Not on file Not on file Not on file Not on file Not on file Not on file Last Filed Vital Signs Vital Sign Reading Time Taken Comments Blood Pressure 124/70 05/08/2014 11:31 AM CDT Pulse 80 05/08/2014 11:31 AM CDT Temperature 36.7 C (98 F) 05/08/2014 11:31 AM CDT Respiratory Rate 16 05/08/2014 11:31 AM CDT Oxygen Saturation 98% 05/08/2014 11:31 AM CDT Inhaled Oxygen Concentration - - Weight 74.4 kg (164 lb) 05/08/2014 11:31 AM CDT Height 157.5 cm (5' 2 ) 05/08/2014 11:31 AM CDT Body Mass Index 30 05/08/2014 11:31 AM CDT Plan of Treatment Health Maintenance Due Date Last Done Comments DTAP/TDAP/TD VACCINES (1 - Tdap) 08/17/2003 08/16/19 04 ZOSTER VACCINE (2 of 3) 07/11/2011 05/16/2011 RSV VACCINE (60+ or ) (1 - 1-dose 75+ series) 2015 BREAST CANCER SCREENING 10/10/2015 10/10/19 15, 10/06/2013, 10/05/2013, Additional history exists COLORECTAL SCREENING 03/07/2017 03/07/2012, 03/07/2012, 06/05/2004 INFLUENZA VACCINE (#1) 2024 3, 08/19/2012, 06/05/2010 OSTEOPOROSIS SCREENING Completed 06/09/2011, 2006 PNEUMOCOCCAL VACCINE 50+ YEARS Completed 11/06/2013 , 11/19/2005 Procedures Procedure Name Priority Date/Time Associated Diagnosis Comments MAMMOGRAM REPORT Routine 10/05/2013 from Last 3 Months or Most Recently Relevant to Health Maintenance Results * MAMMOGRAM REPORT (10/05/2013) us Abstract Provider MAMMO ORDERABLES Final Result EXTERNAL RADIOLOGY from Last 3 Months or Most Recently Relevant to Health Maintenance Advance Directives For more information, please contact: [phone] * Full Code (Latest Code Status on File) Date Activated Date Inactivated Comments 03/07/2012 7:00 AM 03/07/2012 11:27 AM Care Teams Clinical Scientist Relationship Specialty Start Date End Date Raffaele Kaiser MD NO ADDRESS ON FILE PCP - General 05/25/00
--- OUTSIDE RECORDS SUMMARY | 2024-10-24 18:10 | XMS_ITS | Clinical Summary ---
Author Organization [facility] [address] Address [address] [place] [address] Phone Care Team Providers Care Angle Shear Operator Name Role Phone Raffaele Hogan DO Primary Care Provider +1- [phone] Allergies Active Allergy Reactions Criticality Noted Date Comments Trospium Hives Medium 04/17/2020 Sulfa (Sulfonamide Antibiotics) Stomach upset Reaction: Stomach pains, Medications verapamil SR (CALAN SR) 240 mg CR tablet take 1 tablet by oral route every day with food 0 0 5 Active simvastatin (ZOCOR) 10 mg tablet take 1 tablet by oral route every day in the evening 0 0 5 Active cholecalciferol (VITAMIN D3) 5,000 unit tablet 0 0 5 Active levothyroxine (SYNTHROID) 125 mcg tablet take 1 tablet by oral route every day 0 0 5 Active omeprazole 20 mg tablet,delayed release (DR/EC) 1 daily 0 0 6 Active fluticasone (FLONASE) 50 mcg/actuation nasal spray inhale 1 spray by intranasal route every day in each nostril 0 spray 0 6 Active Additional Information Patient not taking.Reported on 05/08/2022 brimonidine (ALPHAGAN P) 0.1 % drops Active metroNIDAZOLE 0.75 % lotionIndicatio ns:Acne Rosacea Apply topically as needed Active Combigan 0.2-0.5 % ophthalmic solution 1 drop 2 (two) times a day 2 Active doxycycline (PERIOSTAT) 20 mg tablet TAKE 2 TABLETS BY MOUTH EVERY DAY WITH WATER 2 Active latanoprost (XALATAN) 0.005 % ophthalmic solution INSTILL 1 DROP INTO BOTH EYES EVERY EVENING 2 Active Active Problems Problem Noted Date Diagnosed Date 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 Overweight (BMI 25.0-29.9) 02/20/2016 Overview (11/19/2016): BMI 30+ - obesity Osteopenia 02/20/2016 Overview (11/21/2016): Osteopenia Arthritis 02/11/2015 Overview (11/21/2016): Arthritis Macular degeneration 02/11/2015 Overview (11/21/2016): Macular degeneration Hypothyroidism 02/11/2015 Overview (11/21/2016): Hypothyroid Hypercholesterolemia 02/11/2015 Overview (11/21/2016): Elevated cholesterol Hypertension 02/11/2015 Overview (11/21/2016): Hypertension Surgical History Surgery Date Site/Laterality Comments OTHER SURGICAL HISTORY Surgery - detached retinas OTHER SURGICAL HISTORY Thyroid nodule - benign: Hemithyroidectomy APPENDECTOMY Appendectomy OTHER SURGICAL HISTORY Abnormal Pap: D&C - 1980s CATARACT EXTRACTION Cataract surgery Medical History Medical History Date Comments Hx Other Medical Thyroid nodule - benign; Comments: RED 02/12/2015 - Hx Other Medical Abnormal Pap; C omments: RED 02/12/2015 - Genital herpes 2020 Family History Medical History Relation Name Comments Heart attack Father Myocardial infa rction; Cause of : Myocardial infarction Other Mother Heart failure a fter stroke; Cause of : Heart failure after stroke Hypertension Other Family history of Hypertension; Relation Name Status Comments Father (Age 52) Mother (Age 60) Other Social History Tobacco Use Types Packs/Day Years Used Date Smoking Tobacco: Never Smokeless Tobacco: Never Tobacco Cessation:Counseling Given: Not Answered Alcohol Use Standard Drinks/Week Comments Yes 0 (1 standard drink = 0.6 oz pur e alcohol) Comments No Sex and Gender Information Value Date Recorded Sex Assigned at Not on file Legal Sex Female 10:18 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 Gender Identity Not on file Sexual Orientation Not on file Occupation Industry Job Start Date Job End Date Retired Not on file Not on file Not on file Obstetrics History Para Term AB IAB SAB Ectopic Multiple Livin g Live Births 1 1 1 1 Date Outcome GA Total Labor Labor/2nd/3rd Weight Sex Type Anes PTL Claribel A1 A5 Name Clin Term Last Filed Vital Signs Vital Sign Reading Time Taken Comments Blood Pressure 146/86 05/08/2022 1:44 PM CDT Pulse - - Temperature 36.3 C (97.3 F) 04/17/2020 10:15 AM CDT Respiratory Rate - - Oxygen Saturation - - Inhaled Oxygen Concentration - - Weight 68.9 kg (151 lb 12.8 oz) 05/08/2022 1:44 PM CDT Height 152.4 cm (5') 05/08/2022 1:44 PM CDT Body Mass Index 29.65 05/08/2022 1:44 PM CDT Plan of Treatment Health Maintenance Due Date Last Done Comments Depression Screening 1940 Fall Risk Assessment 1940 Hepatitis B Screening 1958 Zoster Vaccine (2 of 3) 07/11/2011 05/16/2011 Osteoporosis Screening-Bone Density Scan 03/09/2019 03/09/2017 Well Visit 65+ 05/02/2022 05/02/2021, 09/2019, 04/11/2019, Additional history exists Influenza Vaccine (#1) 2024 9, 05/17/2018, 05/27/2017, Additional history exists DTaP/Tdap/Td Vaccine (2 - Td or Tdap) 02/15/2028 02/14/2018, 08/16/2003 Pneumococcal vaccine 65+ Completed 019, 11/06/2013, 11/19/2005 Procedures Procedure Name Priority Date/Time Associated Diagnosis Comments DEXA AXIAL SKELETON BONE DENSITY 1 OR MORE SITES Schedule Routine, Read Routine (OP Routine) 03/09/2017 10:25 AM CDT Osteopenia of thigh, unspecified laterality from Last 3 Months or Most Recently Relevant to Health Maintenance Results * Dexa Axial Skeleton Bone Density 1 Or 2 Site (03/09/2017 10:25 AM CDT) Anatomical Region Laterality Modality Body N/A Digital Radiogra phy Charley Thibodeaux MD IMG DXA PROCEDURES Ed ited Result - Final from Last 3 Months or Most Recently Relevant to Health Maintenance Insurance [address] [place] [id number] MEDICARE [employer] [facility] Address: [place] [id number] [place] [place] [id number] MED[employer]ARE [employer] [facility] Address: [address] [address] [place] [address] [place] [address] MEDICARE SOLUTIONS Care Teams Angle Shear Operator Relationship Specialty Start Date End Date Raffaele Hogan DO PCP - General 06/09/17
--- OUTSIDE RECORDS SUMMARY | 2024-10-24 18:10 | XMS_ITS | Referral Summary ---
Author Organization [facility] [address] Address [address] [place] [address] Phone Care Team Providers Care Flour Blender Helper Name Role Phone Raffaele Hogan DO Primary Care Provider +1- [phone] Allergies Active Allergy Reactions Criticality Noted Date [...] Elevated cholesterol Hypertension 02/11/2015 Overview (11/21/2016): Hypertension Social History Tobacco Use Types Packs/Day Years Used Date Smoking Tobacco: Never Smokeless Tobacco: Never Tobacco Cessation:Counseling Given: Not Answered Alcohol Use Standard Drinks/Week Comments Yes 0 (1 standard drink = 0.6 oz pur e alcohol) Comments No Sex and Gender Information Value Date Recorded Sex Assigned at Not on file Legal Sex Female 10:18 AM BOAT MASTER Gender Identity Not on file Sexual Orientation [...] 05/08/2022 1:44 PM CDT Plan of Treatment Not on file Procedures Procedure Name Priority Date/Time Associated Diagnosis [...] Most Recently Relevant to [place] [address] [place] [address] MED[employer]ARE [employer] MED[employer]ARE SOL[employer]IONS Care Teams Flour Blender Helper Relationship Specialty Start Date End Date Raffaele Hogan DO PCP - General 06/09/17
--- OUTSIDE RECORDS SUMMARY | 2024-10-24 18:11 | XMS_ITS | Encounter Summary ---
Author Organization [facility] Address [address] [facility] Attn: Epic Prelude ADT MARIAH SANDOVAL [address] Care Team Providers Care Nuisance Wildlife Specialist Name Role Phone Raffaele Kaiser MD Primary Care Provider U janeailazeb Encounter Details Date Type Department Care Team (Late st Contact Info) Description 08/01/1991 Outpatient Historical Raffaele Kaiser MD NO ADDRESS ON FILE Social History Tobacco Use Types Packs/Day Years Used Date Smoking Tobacco: Never Assessed Comments Unknown Sex and Gender Information Value Date Recorded Sex Assigned at Not on file Legal Sex Female 2: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
--- OUTSIDE RECORDS SUMMARY | 2024-10-24 18:11 | XMS_ITS | Encounter Summary ---
Author Organization [facility] Address [address] [place] [address] Care Team Providers Care Printing Machine Mechanic Name Role Phone Raffaele Kaiser MD Primary Care Provider U verna Encounter Details Date Type Department Care Team (Latest Contact Info) Description 04/03/2004 Outpatient [facility] [address] & [place] [address] Raffaele Kaiser MD NO ADDRESS ON FILE PURE HYPERCHOLESTEROLEM (Primary Dx) Social History Tobacco Use Types Packs/Day Years Used Date Smoking Tobacco: Never Assessed Comments Unknown Sex and Gender Information Value Date Recorded Sex Assigned at Not on file Legal 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
--- OUTSIDE RECORDS SUMMARY | 2024-10-24 18:11 | XMS_ITS | Encounter Summary ---
Author Organization [facility] Address [address] [place] [address] Care Team Providers Care Shoemaker Custom Name Role Phone Raffaele Kaiser MD [facility] Encounter Details Date Type Department Care Team (Late st Contact Info) Description 09/25/2003 Outpatient Historical [facility] [place] [place] Support Serv. ([facility] Card[facility]) [address] [place] [address] Kendell Tate MD NO ADDRESS ON FILE Social History Tobacco Use Types Packs/Day Years Used Date Smoking Tobacco: Never Assessed Comments Unknown Sex and Gender Information Value Date Recorded Sex Assigned at Not on file Legal Sex Female 2:41 AM REFINERY OPERATOR [employer]ANT Gender Identity Not on file Sexual Orientation Not on file documented as of this encounter Plan of Treatment Not on file documented as of this encounter Visit Diagnoses Not on filedocumented in this encounter Care Teams Shoemaker Custom Relationship Specialty Start Date End Date Raffaele Kaiser MD NO ADDRESS ON FILE PCP - General 05/25/00 documented as of this encounter
--- OUTSIDE RECORDS SUMMARY | 2024-10-24 18:11 | XMS_ITS | Encounter Summary ---
Author Organization [facility] Address [address] [place] [address] Care Team Providers Care Probation Supervisor Name Role Phone Raffaele Kaiser MD Primary Care Provider U verna Encounter Details Date Type Department Care Team (Latest Contact Info) Description 11/06/2002 Outpatient [facility] [address] & [place] [address] Raffaele Kaiser MD NO ADDRESS ON FILE CHEST PAIN NOS (Primary Dx) Social History Tobacco Use Types Packs/Day Years Used Date Smoking Tobacco: Never Assessed Comments Unknown Sex and Gender Information Value Date Recorded Sex Assigned at Not on file Legal Sex Female 2:41 AM PRINTER'S DEVIL Gender Identity Not on file Sexual Orientation Not on file documented as of this encounter Plan of Treatment Not on file documented as of this encounter Visit Diagnoses Diagnosis Chest pain, unspecified- Primary documented in this encounter Care Teams Probation Supervisor Relationship Specialty Start Date End Date Raffaele Kaiser MD NO ADDRESS ON FILE PCP - General 05/25/00 documented as of this encounter
--- OUTSIDE RECORDS SUMMARY | 2024-10-24 18:11 | XMS_ITS | Encounter Summary ---
Author Organization [facility] Address [address] [place] [address] Care Team Providers Care Revenue Audit Clerk Name Role Phone Raffaele Kaiser MD Primary Care Provider U verna Encounter Details Date Type Department Care Team (Latest Contact Info) Description 12/13/2003 Outpatient [facility] [address] [place] [address] & [place] [address] Raffaele Kaiser MD NO ADDRESS ON FILE AFTERCARE MANAGER FLIGHT OPERATIONS USE MEDICATN (Primary Dx) Social History Tobacco Use Types Packs/Day Years Used Date Smoking Tobacco: Never Assessed Comments Unknown Sex and Gender Information Value Date Recorded Sex Assigned at Not on file Legal Sex Female 2:41 AM DUST COLLECTOR Gender Identity Not on file Sexual Orientation Not on file documented as of this encounter Plan of Treatment Not on file documented as of this encounter Visit Diagnoses Diagnosis Encounter for long-term (current) use of other medications- Primary documented in this encounter Care Teams Revenue Audit Clerk Relationship Specialty Start Date End Date Raffaele Kaiser MD NO ADDRESS ON FILE PCP - General 05/25/00 documented as of this encounter
--- OUTSIDE RECORDS SUMMARY | 2024-10-24 18:11 | XMS_ITS | Encounter Summary ---
Author Organization [facility] Address [address] [place] [address] Care Team Providers Care Exercise Specialist Name Role Phone Raffaele Kaiser MD Primary [facility] Encounter Details Date Type Department Care Team (Late st Contact Info) Description 12/02/2007 Outpatient Historical [facility] 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
--- OUTSIDE RECORDS SUMMARY | 2024-10-24 18:11 | XMS_ITS | Encounter Summary ---
Author Organization [facility] Address [address] [place] [address] Care Team Providers Care Ice Crusher Name Role Phone Raffaele Kaiser MD Primary [facility] Encounter Details Date Type Department Care Team (Late st Contact Info) Description 04/03/2004 Outpatient Historical [facility] Medicine [address] [place] [address] Raffaele Kaiser MD NO ADDRESS ON FILE Social History Tobacco Use Types Packs/Day Years Used Date Smoking Tobacco: Never Assessed Comments Unknown Sex and Gender Information Value Date Recorded Sex Assigned at Not on file Legal Sex Female 2:41 AM BENEFITS OFFICER Gender Identity Not on file Sexual Orientation Not on file documented as of this encounter Plan of Treatment Not on file documented as of this encounter Visit Diagnoses Not on filedocumented in this encounter Care Teams Ice Crusher Relationship Specialty Start Date End Date Raffaele Kaiser MD NO ADDRESS ON FILE PCP - General 05/25/00 documented as of this encounter
--- OUTSIDE RECORDS SUMMARY | 2024-10-24 18:11 | XMS_ITS | Encounter Summary ---
Author Organization [facility] Address [address] [place] [address] Care Team Providers Care Life Underwriter Name Role Phone Raffaele Kaiser MD Primary Care Provider verna Encounter Details Date Type Department Care Team (Latest Contact Info) Description 04/28/1999 Outpatient Historical [facility] Raffaele Blount MD NO ADDRESS ON FILE Other screening mammogram (Primary Dx) Social History Tobacco Use Types Packs/Day Years Used Date Smoking Tobacco: Never Assessed Comments Unknown Sex and Gender Information Value Date Recorded Sex Assigned at Not on file Legal Sex Female 2:41 AM LINE ERECTOR Gender Identity Not on file Sexual Orientation Not on file documented as of this encounter Plan of Treatment Not on file documented as of this encounter Visit Diagnoses Diagnosis Other screening mammogram- Primary documented in this encounter Care Teams Life Underwriter Relationship Specialty Start Date End Date Raffaele Kaiser MD NO ADDRESS ON FILE PCP - General 05/25/00 documented as of this encounter
--- OUTSIDE RECORDS SUMMARY | 2024-10-24 18:11 | XMS_ITS | Encounter Summary ---
Author Organization [facility] Address 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
--- OUTSIDE RECORDS SUMMARY | 2024-10-24 18:11 | XMS_ITS | Encounter Summary ---
Author Organization [facility] Address [address] [place] [address] Care Team Providers Care Optical Fabricator Name Role Phone Raffaele Kaiser MD Primary [facility] Encounter Details Date Type Department Care Team (Late st Contact Info) Description 09/26/2003 Outpatient Historical [facility] [address] [place] [address] Raffaele Kaiser MD NO ADDRESS ON FILE Social History Tobacco Use Types Packs/Day Years Used Date Smoking Tobacco: Never Assessed Comments Unknown Sex and Gender Information Value Date Recorded Sex Assigned at Not on file Legal Sex Female 2:41 AM NETTING WEAVER Gender Identity Not on file Sexual Orientation Not on file documented as of this encounter Plan of Treatment Not on file documented as of this encounter Visit Diagnoses Not on filedocumented in this encounter Care Teams Optical Fabricator Relationship Specialty Start Date End Date Raffaele Kaiser MD NO ADDRESS ON FILE PCP - General 05/25/00 documented as of this encounter
--- OUTSIDE RECORDS SUMMARY | 2024-10-24 18:11 | XMS_ITS | Encounter Summary ---
Author Organization [facility] Address [address] [place] [address] Care Team Providers Care Test And Research Reactor Operator Name Role Phone Raffaele Kaiser MD Primary Care Provider U verna Encounter Details Date Type Department Care Team (Late st Contact Info) Description 12/02/2002 Outpatient Historical [facility] Raffaele Kaiser MD NO ADDRESS ON FILE ABDOMINAL PAIN UNSPEC SITE (Primary Dx) Social History Tobacco Use Types Packs/Day Years Used Date Smoking Tobacco: Never Assessed Comments Unknown Sex and Gender Information Value Date Recorded Sex Assigned at Not on file Legal Sex Female 2:41 AM INTERN Gender Identity Not on file Sexual Orientation Not on file documented as of this encounter Plan of Treatment Not on file documented as of this encounter Visit Diagnoses Diagnosis Abdominal pain, unspecified site- Primary documented in this encounter Care Teams Test And Research Reactor Operator Relationship Specialty Start Date End Date Raffaele Kaiser MD NO ADDRESS ON FILE PCP - General 05/25/00 documented as of this encounter
--- OUTSIDE RECORDS SUMMARY | 2024-10-24 18:11 | XMS_ITS | Encounter Summary ---
Author Organization [facility] Address [address] [facility] Attn: Epic Prelude ADT MARIAH SANDOVAL [address] Care Team Providers Care Manager Trading Name Role Phone Raffaele Kaiser MD Primary Care Provider U janeailazeb Encounter Details Date Type Department Care Team (Late st Contact Info) Description 04/14/1990 Outpatient Historical Chidi Urban MD [address] [address] Social History Tobacco Use Types Packs/Day Years Used Date Smoking Tobacco: Never Assessed Comments Unknown Sex and Gender Information Value Date Recorded Sex Assigned at Not on file Legal Sex Female 2:41 AM INSTRUCTOR BRIDGE Gender Identity Not on file Sexual Orientation Not on file documented as of this encounter Plan of Treatment Not on file documented as of this encounter Visit Diagnoses Not on filedocumented in this encounter Care Teams Manager Trading Relationship Specialty Start Date End Date Raffaele Kaiser MD NO ADDRESS ON FILE PCP - General 05/25/00 documented as of this encounter
--- OUTSIDE RECORDS SUMMARY | 2024-10-24 18:11 | XMS_ITS | Encounter Summary ---
Author Organization [facility] Address [address] [place] [address] Care Team Providers Care Mineralogy Teacher Name Role Phone Raffaele Kaiser MD Primary Care Provider 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
--- OUTSIDE RECORDS SUMMARY | 2024-10-24 18:11 | XMS_ITS | Encounter Summary ---
Author Organization [facility] Address [address] [place] [address] Care Team Providers Care Impregnator And Drier Name Role Phone Raffaele Kaiser MD Primary Care Provider U verna Encounter Details Date Type Department Care Team (Latest Contact Info) Description 06/28/2003 Outpatient [facility] [address] & [place] [address] Raffaele Kaiser MD NO ADDRESS ON FILE PURE HYPERCHOLESTEROLEM (Primary Dx) Social History Tobacco Use Types Packs/Day Years Used Date Smoking Tobacco: Never Assessed Comments Unknown Sex and Gender Information Value Date Recorded Sex Assigned at Not on file Legal Sex Female 2:41 AM CROTCH BREAKER Gender Identity Not on file Sexual Orientation Not on file documented as of this encounter Plan of Treatment Not on file documented as of this encounter Visit Diagnoses Diagnosis Pure hypercholesterolemia- Primary documented in this encounter Care Teams Impregnator And Drier Relationship Specialty Start Date End Date Raffaele Kaiser MD NO ADDRESS ON FILE PCP - General 05/25/00 documented as of this encounter
--- OUTSIDE RECORDS SUMMARY | 2024-10-24 18:11 | XMS_ITS | Encounter Summary ---
Author Organization [facility] Address [address] [place] [address] Care Team Providers Care Stake Driver Name Role Phone Raffaele Kaiser MD Primary Care Provider [facility] Encounter Details Date Type Department Care Team (Late st Contact Info) Description 11/23/2002 Outpatient Historical [facility] Internal Medicine [address] [place] [address] Raffaele Kaiser MD NO ADDRESS ON FILE Social History Tobacco Use Types Packs/Day Years Used Date Smoking Tobacco: Never Assessed Comments Unknown Sex and Gender Information Value Date Recorded Sex Assigned at Not on file Legal Sex Female 2:41 AM DIRECTOR OF AVIATION Gender Identity Not on file Sexual Orientation Not on file documented as of this encounter Plan of Treatment Not on file documented as of this encounter Visit Diagnoses Not on filedocumented in this encounter Care Teams Stake Driver Relationship Specialty Start Date End Date Raffaele Kaiser MD NO ADDRESS ON FILE PCP - General 05/25/00 documented as of this encounter
--- OUTSIDE RECORDS SUMMARY | 2024-10-24 18:11 | XMS_ITS | Encounter Summary ---
Author Organization [facility] Address [address] [place] [address] Care Team Providers Care Anesthesiology Physician Name Role Phone Raffaele Kaiser MD Primary Care Provider [facility] Encounter Details Date Type Department Care Team (Late st Contact Info) Description 06/28/2003 Outpatient Historical [facility] Internal Medicine 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
--- OUTSIDE RECORDS SUMMARY | 2024-10-24 18:11 | XMS_ITS | Encounter Summary ---
Author Organization [facility] Address [address] [place] [address] Care Team Providers Care Instrumentation Supervisor Name Role Phone Raffaele Kaiser MD Primary Care Provider U [facility] Encounter Details Date Type Department Care Team (Latest Contact Info) Description 07/17/2004 Outpatient [facility] [employer] [facility] [address] [place] [address] Raffaele Kaiser MD NO ADDRESS ON FILE PURE HYPERCHOLESTEROLEM (Primary Dx) Social History Tobacco Use Types Packs/Day Years Used Date Smoking Tobacco: Never Assessed Comments Unknown Sex and Gender Information Value Date Recorded Sex Assigned at Not on file 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
--- OUTSIDE RECORDS SUMMARY | 2024-10-24 18:11 | XMS_ITS | Encounter Summary ---
Author Organization [facility] Address 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
--- OUTSIDE RECORDS SUMMARY | 2024-10-24 18:11 | XMS_ITS | Encounter Summary ---
Author Organization [facility] Address 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
--- OUTSIDE RECORDS SUMMARY | 2024-10-24 18:11 | XMS_ITS | Encounter Summary ---
Author Organization [facility] Address 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
--- OUTSIDE RECORDS SUMMARY | 2024-10-24 18:11 | XMS_ITS | Continuity of Care Document ---
Author Organization [facility] [place] [address] [place] [id number] Phone Care Team Providers Care Trade Facilitator Name Role Phone Karan OD, Sherrell Unavailable Unavailable Allergies, Adverse Reactions, Alerts Substance Reaction Status Criticality Sulfa (Sulfonamide Antibiotics) Active No Information Medications Medication Instructions Dosage Effective Dates (start - stop) Status Comments COMBIGAN 0.2%-0.5% EYE DROPS INSTILL 1 DROP INTO BOTH EYES TWICE A DAY - Active LATANOPROST 0.005% OPHTH SOLN 2.5ML INSTILL ONE DROP IN BOTH EYES EVERY EVENING - Active PRESERVISION AREDS (unknown strength) take one tablet daily Not Available - Active VERAPAMIL HCL (unknown strength) 1 tablet by mouth once a day Not Available - Active omeprazole 20 mg capsule,delayed release take 1 capsule by oral route every day before a meal 20 MG - Active Vitamin D3 400 unit capsule 1 tablet by mouth once a day - Active Synthroid 125 mcg Tab take 1 tablet (125MCG) by ORAL route every day 125 MCG - Active Simvastatin 20 mg Tab take 1 tablet (20MG) by ORAL route every day in the evening 20 MG - Active Combigan 0.2 %-0.5 % eye drops instill 1 drop by ophthalmic route 2 times every day into both eyes 1 drop - No Longer Active Procedures Procedure Date Visual Field Examination(s) No Charge Refraction No Charge Optomap Fundus Photos Oct-01-2 024 Office/outpatient Visit, Est No Charge Optomap Fundus Photos 024 SCODI, Posterior Segment Office/outpatient Visit, Est No Charge Optom[facility] Fundus Photos 023 Visual Field Examination(s) Office/outpatient Visit, Est No Charge Opt[facility]ap Fundus Photos 023 SCODI, Posterior Segment Eye Exam & Treatment Fundus Photography W/ Report Visual Field Examination(s) Office/outpatient Visit, Est Office/outpatient Visit, Est Fundus Photography W/ Report SCODI, Posterior Segment No Charge Optomap Fundus Photos 022 Eye Exam & Treatment Visual Field Examination(s) Fundus Photography W/ Report Office/outpatient Visit, Est Visual Field Examination(s) Fundus Photography W/ Report Eye Exam & Treatment SCODI, Posterior Segment No Charge Optomap Fundus Photos 020 Office/outpatient Visit, Est Eye Exam & Treatment Fundus Photography W/ Report Office/outpatient Visit, Est No Charge GDX Posterior Segment 019 No Charge Optomap Fundus Photos 019 Post-op Follow-up Visit Trabeculoplasty By Laser SX Special Eye Evaluation Office/outpatient Visit, Est Visual Field Examination(s) Eye Exam & Treatment SCODI, Posterior Segment Office/outpatient Visit, Est Visual Field Examination(s) Office/outpatient Visit, Est Corneal Pachymetry Office/outpatient Visit, Est SCODI, Posterior Segment Office/outpatient Visit, Est Office/outpatient Visit, Est Contact Lens Check Eye Exam & Treatment Post-op Follow-up Visit After Cataract Laser Surgery No Charge Refraction After Cataract Laser Surgery No Charge Refraction Eye Exam & Treatment Remove Foreign Body From Eye Post-op Follow-up Visit Post-op Follow-up Visit Post-op Follow-up Visit Post-op Follow-up Visit Post-op Follow-up Visit Remove Cataract, Insert Lens IOLMaster-Professional Post-op Follow-up Visit Post-op Follow-up Visit Post-op Follow-up Visit Remove Cataract, Insert Lens Office/outpatient Visit, New IOLMaster Fundus Photography W/ Report Advance Directives Directive Yes / No Effective Date File Name No Information Encounters Encounter Description Practice Location Reason(s) For Visit Diagnoses Date Provider Providers Copied on Encounter [facility], [address], [place], [place], [address], [place] tel:[phone] [place] No Information 5 Karan OD Sherrell. [address], [address], [place], [place], [address], [place]. tel:[phone] Office/outpa tient Visit, Est [facility], [address] [facility] [address], [place], [place], [address], tel:[phone] SEC [place] Professional Complete Exam (chief complaint) Primary open-angle glaucoma, right eye, moderate stagePrimary open-angle glaucoma, left eye, mild stage Oct-0 -202 4 Karan OD Sherrell. [address] [place] [address] [address], [place], [place], [address], [place]. tel:[phone] Referring Provider: Inder Ghosh MD, [address] [facility] [address], [place], [address] . tel:[phone] Office/outpa tient Visit, [facility], [address] [place] [address] [address], [place], [place], [address], [place] tel:[phone] SEC [place] MCCARTHY Professional Complete Exam (chief complaint) Primary open angle glaucoma (POAG) of both eyes, moderate stage Mar-1 - 4 Karan OD Sherrell. [address] [place] [address] [address], [address], [place], [place], [address], [place]. tel:[phone] Referring Provider: Inder Ghosh MD, [address] [facility] [address], [place], [address] . tel:[phone] [facility], [address], [place], [place], [address], [place] tel:[phone] SEC [place] MCCARTHY Professional No Information Nov-0 - 3 Mcdonald Irvin. [address] [facility] [address], [place], [place], [address], [place]. tel:[phone] Office/outpa tient Visit, [facility], [address], [place], [place], [address], [place] tel:[phone] SEC [place] MCCARTHY Professional glaucoma, pressure check (chief complaint) Primary open angle glaucoma (POAG) of both eyes, moderate stage Sep-1 -202 3 Karan OD Sherrell. [address] [place] [address] [address], [place], [place], [address], [place]. tel:[phone] Referring Provider: Inder Ghosh MD, [address] [facility] [address], [place], [address] . tel:[phone] [facility], [address] [place] [address] [address], [place], [place], [address], [place] tel:[phone] SEC Stephan MCCARTHY Professional 6 month Complete (chief complaint) Primary open angle glaucoma (POAG) of both eyes, moderate stagePseudop hakia of both eyes 3 Harry Bryan. [address], [address], [place], [place], [address], [place]. tel:[phone] Referring Provider: Inder Ghosh MD, [address] [place] [address] [address] [facility], [place], [address] . tel:[phone] Office/outpa tient Visit, [facility], [address] [place] [address] [address], [place], [place], [address], [place] tel:[phone] SEC Stephan MCCARTHY Professional 6 month IOP check w/VF (chief complaint) Primary open angle glaucoma (POAG) of both eyes, moderate stagePseudop hakia of both eyes 2 Harry Bryan. [address], [address], [place], [place], [address], [place]. tel:[phone] Referring Provider: Haresh Palomo MD P, [address] [place] [address], [place], [address] . tel:[phone] Office/outpa tient Visit, [facility], [address] [place] [address] [address], [place], [place], [address], [place] tel:[phone] SEC Stephan MCCARTHY Professional glaucoma, pressure check (chief complaint) Primary open angle glaucoma (POAG) of both eyes, moderate stagePresenc e of intraocular lensUnspecif ied macular degeneration 2 Harry Bryan. [address], [address], [place], [place], [address], [place]. tel:[phone] Referring Provider: Inder Ghosh MD, [address] [place] [address] [address], [place], [address] . tel:[phone] [facility], [address], [place], [place], [address], [place] tel:[phone] SEC [place] MCCARTHY Professional 6 month Complete (chief complaint) Primary open-angle glaucoma, right eye, severe stagePrimary open-angle glaucoma, left eye, mild stageMyopic macular degeneration of both eyesPseudoph justine of both eyesHistory of retinal detachment 2 Harry Bryan. [address], [address], [place], [place], [address], [place]. tel:[phone] Referring Provider: Inder Ghosh MD, [address] [facility] [address], [place], [address] . tel:[phone] Office/outpa tient Visit, Est [facility], [address], [place], [place], [address], [place] tel:[phone] SEC Stephan MCCARTHY Professional 6 month IOP check w/VF (chief complaint) Primary open-angle glaucoma, bilateral, mild stagePseudop hakia of both eyes 1 Harry Bryan. [address], [address], [place], [place], [address], [place]. tel:[phone] Referring Provider: Inder Ghosh MD, [address], [place], [address] . tel:[phone] [facility], [address], [place], [place], [address], [place] [phone] SEC [place] MCCARTHY Professional 6 month Complete (chief complaint) Primary open-angle glaucoma, bilateral, mild stagePseudop hakia of both eyesPunctate keratitis, bilateralMyo pic macular degeneration of both eyes 0 Harry Bryan. [address], [address], [place], [place], [address], [place]. tel:[phone] Referring Provider: Inder Ghosh MD, [address] [facility] [address], [place], [address] . tel:[phone] Office/outpa tient Visit, [facility], [address], [place], [place], [address], [place] tel:[phone] SEC [place] MCCARTHY Professional 6 mo IOP check (chief complaint) Primary open-angle glaucoma, bilateral, mild stage Manny-1 2-202 0 Harry Bryan. [address], [address], [place], [place], [address], [place]. tel:[phone] Referring Provider: Inder Ghosh MD, [address] [facility] [address], [place], [address] . tel:[phone] [facility], [address] [place] [address] [address], [place], [place], [address], [place] tel:[phone] SEC [place] MCCARTHY Professional 6 month Complete w/VF (chief complaint) Primary open-angle glaucoma, bilateral, mild stagePseudop hakia of both eyesPunctate keratitis, bilateralOth er secondary cataract, right eyeChorioret inal scar of both eyes after surgery for detachmentVi treous degeneration , bilateral Oct-0 4-201 9 Harry Bryan. [address], [address] [place], [address], [place]. tel:[phone] Referring Provider: Inder Ghosh MD, [address] [facility] [address], [place], [address] . tel:[phone] Office/outpa tient Visit, [facility], [address], [place], [place], [address], [place] tel:[phone] SEC [place] MCCARTHY Professional glaucoma, pressure check (chief complaint) Primary open-angle glaucoma, bilateral, mild stage Apr-0 2-201 9 Harry Bryan. [address], [address], [place], [place], [address], [place]. tel:[phone] Referring Provider: Inder Ghosh MD, [address] [facility] [address], [place], [address] . tel:[phone] [facility], [address], [place], [place], [address], [place] [phone] SEC Stephan MCCARTHY Professional 1 week IOP check s/p SLT OD (chief complaint) Encounter for examination following surgery 9 Harry Bryan. [address], [address], [place], [place], [address], [place]. tel:[phone] Referring Provider: Inder Ghosh MD, [address], [place], [address] . tel:[phone] [facility], [address], [place], [place], [address], [place] [phone] SEC [place] MCCARTHY Professional SLT (chief complaint) Primary open-angle glaucoma, bilateral, mild stage 9 Harry Bryan. [address], [address], [place], [place], [address], [place]. tel:[phone] Referring Provider: Inder Ghosh MD, [address] [facility] [address], [place], [address] . tel:[phone] Office/outpa tient Visit, Est [facility], [address], [place], [place], [address], [place] [phone] SEC [place] Professional IOP check (chief complaint) Primary open-angle glaucoma, bilateral, mild stage 9 Harry Bryan. [address], [address], [place], [place], [address], [place]. tel:[phone] [facility], [address], [place], [place], [address], [place] [phone] KARINA MCCARTHY Professional 6 month Complete (chief complaint) Pseudophakia of both eyesPrimary open-angle glaucoma, bilateral, mild stageHistory of retinal detachmentPV D (posterior vitreous detachment), left eyeSuperfici al punctate keratitis of right eyeNexdtve age-related mclr degn, bilateral, intermed dry stage Oct-0 8 Harry Bryan. [address] [place] [address], [address], [place]. tel:[phone] Referring Provider: Inder Ghosh MD, [address], [address] . tel:[phone] Office/outpa tient Visit, [facility], [address] [place] [address] [address], [place], [place], [address], [place] tel:[phone] KARINA MCCARTHY Professional 6 mo IOP check (chief complaint) No Information 8 Juan C Molina. [address] [place], [address], [place]. tel:[phone] Referring Provider: Inder Ghosh MD, [address], [address] . tel:[phone] Office/outpa tient Visit, [facility], [address] [place] [address] [address], [place], [place], [address], [place] tel:[phone] SEC [place] MCCARTHY Professional glaucoma, pressure check (chief complaint) No Information 7 Juan C Molina. [address] [place], [address], [place]. tel:[phone] Referring Provider: Inder Ghosh MD, [address], [address] . tel:[phone] Office/outpa tient Visit, [facility], [address] [place] [address] [address], [place], [place], [address], [place] tel:[phone] KARINA MCCARTHY Professional IOP check (chief complaint) No Information 5-201 7 Wanksamantha Hayes. [address], [address], [place], [address], [place]. tel:[phone] Referring Provider: Inder Ghosh MD, [address] [facility] [address], [place], [address] . tel:[phone] [facility], [address], [place], [place], [address], [place] [phone] SEC Stephan MCCARTHY Professional No Information 2-201 7 Wankum Freddy. [address], [facility] [place], [address], [place]. tel:[phone] Office/outpa tient Visit, [facility], [address], [place], [place], [address], [place] [phone] SEC Stephan MCCARTHY Professional Glaucoma, pressure check (chief complaint) No Information 0-201 7 Wanksamantha Hayes. [address], [facility] [place], [address], [place]. tel:[phone] Office/outpa tient Visit, [facility], [address], [place], [place], [address], [place] [phone] SEC Stephan MCCARTHY Professional Work in Emergency (chief complaint) No Information 6-201 6 Wankum Freddy. [address], [address], [address], [place]. tel:[phone] Referring Provider: Inder Ghosh MD, [address] [facility] [address], [place], [address] . tel:[phone] [facility], [address], [place], [place], [address], [place] tel:[phone] SEC Stephan MCCARTHY Professional Difficulty reading (chief complaint) No Information 6 Wankum Freddy. [address] [employer], [address], [place], [place], [address], [place]. tel:[phone] Referring Provider: Inder Ghosh MD, [address] [facility] [address], [place], [address] . tel:[phone] [facility] GroupDewitt HospitalIntrakr Eye [facility], [address], [place], [place], [address], [place] tel:[phone] SEC [place] SHARI Professional Difficulty reading (chief complaint) No Information 6 Wankum Freddy. [address] [facility] [employer], [address], [place], [place], [address], [place]. tel:[phone] Referring Provider: Inder Ghosh MD, [address] [facility] [address], [place], [address] . tel:[phone] [facility], [address], [place], [place], [address], [place] tel:[phone] SEC Stephan MCCARTHY Professional F/u exam, postop (chief complaint) No Information 5 Wankum Freddy. [address], [address], [place], [place], [address], [place]. tel:[phone] Referring Provider: Inder Ghosh MD, [address] [facility] [address], [place], [address] . tel:[phone] [facility] GroupDewitt HospitalIntrakr Eye [facility] Hospital[facility], [address], [place], [place], [address], [place] tel:[phone] SEC Stephan MCCARTHY Professional YAG PC (chief complaint) No Information 5 Wankum Freddy. [address] [employer], [address], [place], [place], [address], [place]. tel:[phone] Referring Provider: Inder Ghosh MD, [address] [facility] [address], [place], [address] . tel:[phone] [facility], [address], [place], [place], [address], [place] tel:[phone] [place] Professional YAG (chief complaint) No Information 5 Wankum Freddy. [address] [facility], [address], [place], [place], [address], [place]. tel:[phone] Referring Provider: Inder Ghosh MD, [address] [facility] [address], [place], [address] . tel:[phone] [facility], [address], [place], [place], [address], [place] tel:[phone] [place] Professional complete (chief complaint) No Information 5 Wankum Freddy. [address] [facility], [address], [place], [place], [address], [place]. tel:[phone] Referring Provider: Inder Ghosh MD, [address] [facility] [address], [place], [address] . tel:[phone] [facility], [address], [place], [place], [address], [place] tel:[phone] SEC [place] Professional WIE (chief complaint) No Information 3 Wankum Freddy. [address] [facility]bergSt[facility], [address], [place], [place], [address], [place]. tel:[phone] Referring Provider: Inder Ghosh MD, [address] [facility] [address], [place], [address] . tel:[phone] [facility], [address], [place], [place], [address], [place] tel:[phone] [place] Professional eyes doing well, without complaint. (chief complaint) No Information 3-201 3 Wankum Freddy. [address], [address], [place], [place], [address], [place]. tel:[phone] Referring Provider: Inder Ghosh MD, [address], [place], [address] . tel:[phone] [facility], [address], [place], [place], [address], [place] tel:[phone] SEC Stephan MCCARTHY Professional blurry vision (chief complaint) No Information - 2 Wankum Freddy. [address] [employer] [address] [employer], [address], [place], [place], [address], [place]. tel:[phone] Referring Provider: Inder Ghosh MD, [address], [place], [address] . tel:[phone] [facility], [address], [place], [place], [address], [place] tel:[phone] SEC [place] SHARI Professional 2 week post op (chief complaint) No Information Jul-1 4-201 2 Wankum Freddy. [address], [address], [place], [place], [address], [place]. tel:[phone] Referring Provider: Inder Ghosh MD, [address], [place], [address] . tel:[phone] [facility], [address], [place], [place], [address], [place] tel:[phone] SEC [place] SHARI Professional 1 week post op (chief complaint) No Information Dec-0 7-201 2 Wankum Freddy. [address], [address], [place], [place], [address], [place]. tel:[phone] Referring Provider: Inder Ghosh MD, [address], [place], [address] . tel:[phone] [facility], [address], [place], [place], [address], [place] tel:[phone] SEC [place] Professional 1 day post op (chief complaint) No Information Nov-3 0-201 2 Wankum Freddy. [address] [facility], [address], [place], [place], [address], [place]. tel:[phone] Referring Provider: Inder Ghosh MD, [address], [place], [address] . tel:[phone] [facility], [address], [place], [place], [address], [place] tel:[phone] [facility] No Information Nov-2 9201 2 Claire Savage. [address], [address], [place], [place], [address], [place]. tel:[phone] Referring Provider: Inder Ghosh MD, [address], [place], [address] . tel:[phone] [facility], [address], [place], [place], [address], [place] tel:[phone] SEC Jenniferbreann Carrillo No Information Nov-2 8201 2 Charlotte Savage. [address], [address], [place], [place], [address], [place]. tel:[phone] Referring Provider: Inder Ghosh MD, [address], [place], [address] . tel:[phone] [facility], [address], [place], [place], [address], [place] tel:[phone] SEC [place] Professional 2 week post op (chief complaint) No Information Nov-2 0-201 2 Wankum Freddy. [address] [facility], [address], [place], [place], [address], [place]. tel:[phone] Referring Provider: Inder Ghosh MD, [address] [facility] [address], [place], [address] . tel:[phone] [facility], [address], [place], [place], [address], [place] tel:[phone] SEC [place] Professional a comprehensive exam (chief complaint) No Information Nov-0 9-201 2 Jose Ramonksamantha Hayes. [address] [facility], [address], [place], [place], [address], [place]. tel:[phone] Referring Provider: Inder Ghosh MD, [address] [facility] [address], [place], [address] . tel:[phone] [facility], [address], [place], [place], [address], [place] tel:[phone] [place] Professional 1 day post op (chief complaint) No Information Nov-0 2-201 2 Kadeem Hayes. [address] [facility], [address], [place], [place], [address], [place]. tel:[phone] Referring Provider: Inder Ghosh MD, [address] [facility] [address], [place], [address] . tel:[phone] [facility], [address], [place], [place], [address], [place] tel:[phone] [facility] No Information Nov-0 1-201 2 Claire Wan. [address], [place], [place], [address], [place]. tel:[phone] Referring Provider: Inder Ghosh MD, [address] [facility] [address], [place], [address] . tel:[phone] Office/outpa tient Visit, [facility] [facility], [address], [place], [place], [id number], [place] tel:[phone] SEC Stephan SHARI Professional burning (chief complaint) No Information May- 2 Claire Wan. [address], [address], [place], [place], [address], [place]. tel:[phone] Referring Provider: Inder Ghosh MD, [address], [place], [address] . tel:[phone] [facility], [address], [place], [place], [id number], [place] tel:[phone] SEC [place] Professional No Information 2 Kadeem Hayes. [address], [address], [place], [place], [address], [place]. tel:[phone] Family History Family Member Type Diagnosis Age At Onset Problem (finding) Mother Problem (finding) hypertension Father Problem (finding) hypertension Payers Payer name Insurance type Covered democrat ID Authoriza rudy(s) [facility] Mdcr Adv CI [id number] Social History Type Description Quantity Date Captured Comments Sex Female Smoking Status No Information Sexual Orientation Don't Know Gender Identity Female Chief Complaint And Reason For Visit No Information Reason For Referral Reason For Referral No Information Plan Of Treatment Date Type Action Status Appointment Martine Robles BOOKED Patient Education Open-Angle Glaucoma: Ca re Instructions completed Patient Education The Eye: Anatomy Sketch completed Patient Education Open-Angle Glaucoma: Ca re Instructions completed Patient Education Open-Angle Glaucoma: Ca re Instructions completed Patient Education Open-Angle Glaucoma: Ca re Instructions completed Patient Education Open-Angle Glaucoma: Ca re Instructions completed Patient Education Open-Angle Glaucoma: Ca re Instructions completed Patient Education Open-Angle Glaucoma: Ca re Instructions completed Patient Education Open-Angle Glaucoma: Ca re Instructions completed Patient Education Open-Angle Glaucoma: Ca re Instructions completed Patient Education Open-Angle Glaucoma: Ca re Instructions completed History Of Present Illness Encounter Date Complaint History Of Prese nt Illness Complete Exam The 84 year old patient presents for evaluation of Complete Exam in the right eye and left eye. Patient being monitored for POAG OU. Patient is noticing distortion in vision when driving letters on street signs appear off or slanted in the middle. Pt states vision in the right eye has always been off and appears as a blur in the center, but pt now feels the distortion is in both eyes. Denies pain/discomfort. Complete Exam The 83 year old patient presents for a complete POAG ou IOP check. Patient is using Combigan bid ou and Latanoprost qhs ou. Patient is pseudo ou with yag caps ou. Patient has hx of RD ou. Patient denies any changes in vision ou. glaucoma, pressure check The 82 year old patient presents for a 6 month POAG ou IOP check. Patient is using Latanoprost qhs ou and Combigan bid ou. Patient is pseudo ou with yag caps ou. Patient denies any changes in vision ou. 6 month Complete The 82 year old patient presents for evaluation of 6 month Complete in the right eye and left eye. Patient denies any changes with eyes. Patient using Com BID OU last used @ 6am and Suzi qd OU last used @ 1030pm. Tech sent refills to pharm. 6 month IOP check w/VF The 81 ye ar old patient presents for evaluation of 6 month IOP check w/VF in the right eye and left eye. Hx of POAG OU, PCIOL OU, YAG PC OU, PVD OU, RD OU s/p Repair OU, AMD OU, and NEREIDA OU. Patient denies any changes with her eyes, VA seems stable OU. Patient using Comb BID OU last used this morning and Suzi qd OU last used last night. glaucoma, pressure check The 81 year old client presents for a 7 week POAG ou IOP check. Patient is using Combigan bid ou and Latanoprost qhs ou. Patient states it was hard for her to get Combigan from [facility]. 6 month Complete The 81 year old female presents for evaluation of 6 month Complete in the right eye and left eye. Hx of POAG OU, PCIOL OU, YAG PC OU, AMD OU, RD OU s/p Scleral buckle OU, and PVD OU. Patient denies any problems or changes with eyes. Patient using Brim BID OU last used @ 9am and Suzi qd OU last used @ 10pm. 6 month IOP check w/VF The 80 ye ar old female presents for evaluation of 6 month IOP check w/VF in the right eye and left eye. Hx of PCIOL OU, YAG PC OU, PVD OU, POAG OU, and Myopic Macular degen OU. Patient denies any changes with eyes. VA seems stable. Patient using Brim BID OU last used @ 7am and Suzi qd OU last used @ 10pm. 6 month Complete The 80 year old female presents for evaluation of 6 month Complete in the right eye and left eye. Hx of PCIOL OU, POAG OU, and YAG PC OU. Patient denies any problems or changes with VA. Patient using Brim BID OU last used @ 6am and Suzi qd OU last used @ 10pm. Tech sent refills to pharm. Patient states she fell about a week ago and hit her face, has not had any VA changes or problems with eyes. 6 mo IOP check The 79 year old female presents for evaluation of 6 mo IOP check with Optomap and OCT-ON in the right eye and left eye. Pt reports she uses Brimonidine BID OU (last used at 8:30 am today), Latanoprost QHS OU (last used at 10 pm last night), and refills not needed. Pt reports she hasn't noticed any changes or problems with OU since last visit. 6 month Complete w/VF The 79 yea r old female presents for evaluation of 6 month Complete w/VF in the right eye and left eye. Hx of POAG OU s/p SLT OD, PCIOL OU, and YAG PC OU. Patient denies any problems or changes with eyes. Patient using Suzi qd OU last used @ 10pm and Brim BID OU last used @ 7am. Tech sent refills to pts pharm today glaucoma, pressure check The 78 year old female presents for a 6 month POAG ou IOP check. Patient is using Latanoprost qhs ou and Brimonidine bid ou. Patient is pseudo ou with yag caps ou. Patient has AMD and takes AREDS. Patient has hx of SLT OD. Patient denies any changes in vision. 1 week IOP check s/p SLT OD The 78 year old female presents for evaluation of 1 week IOP check s/p SLT OD in the right eye. Patient denies any problems or changes with eyes. Patient using Brim BID OU last used @ 7am and Latanoprost qd OU last used @ 10pm. Patient states when she picked up Latanoprost from pharm it was prescribed to use the latanoprost in both eyes she said prior to this she was only using the latanoprost in the right eye? SLT The 78 year old female presents for evaluation of SLT in the right eye. Patient denies any changes. Patient using Brim BID OU last used @ 6am and Latanoprost qd OU last used @ 10pm. IOP check The 78 year old female presents for evaluation of IOP check in the right eye and left eye. Pt was seen at [facility] on 08/25/18 and IOP was [address] Palomo recommended IOP check with us. Pt reports she has been using Brimonidine BID OU and last used it at 8 am today[address] Pt reports Dr. Palomo put her on Latanoprost QHS OD only and she last used that at midnight last night. Pt denies any changes in VA, OU, since last appt. 6 month Complete The 78 year old female presents for evaluation of 6 month Complete in the right eye and left eye. Hx of PCIOL OU, YAG PC OU, AMD OU, RD s/p Scleral Buckle OU, PVD OU, and POAG OU. Patient denies any problems or changes with VA. Patient using Brim BID OU last used this am @ 7am and uses Art tear PRN OU. 6 mo IOP check The 77 year old female presents for evaluation of 6 mo IOP check with OCT-ON in the right eye and left eye. Hx of PCIOL OU, YAG PC OU, AMD OU, RD s/p Scleral Buckle OU, PVD OU, and POAG OU. Pt reports she is using AREDS BID PO and Brimonidine BID OU and last used it at 6 am this morning. Pt reports she notices she has a blurry spot, OS, she thinks maybe due to AMD, worse when driving in sunlight, and blinking helps. Pt denies any pain, irritation or discomfort today, OU. glaucoma, pressure check The 76 year old female presents for a 4 month POAG ou IOP check. Patient is using Brimonidine bid ou. Patient is pseudo ou with yag caps ou. Patient has hx of AMD and takes AREDS II. Patient denies any changes in vision ou. Patient states sometimes OS vision seems cloudy. IOP check The 76 year old female presents for IOP check in the right eye and left eye. History of POAG OU. Pt is using Brimonidine BID OU. Pt reports no problems. Glaucoma, pressure check The 76 year old female presents for Glaucoma, pressure check OU, patient denies any pain or discomfort at this time, states v/a is stable, uses Brimonidine BID OU, told by Dr. Palomo to use in both eyes. 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 Patient is currently using Pred QD OD, Brimonidine QD OD ( prescribed by Dr. Palomo in April). Patient states that OD UL has stye for last couple of weeks and thinks she is getting one on OD LL. She states that she has used ice pack to decrease swelling but then used warm compresses BID-TID OD. Patient states that the pain has decreased but she still has some irritation. Difficulty reading The 75 year o ld female presents for an office visit. 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 Patient wanted to make sure her vision is the same. Difficulty reading The 75 year o ld female presents for a complete AMD check ou. Patient saw Dr. Ghosh in March. Patient denies any changes in vision ou. Patient wears OTC. F/u exam, postop The 74 year old female presents for a 1 month s/p YAG PC OS. Patient doesn't notice any difference OS. YAG PC The 74 year old female presents for YAG PC OS. HX YAG PC OD 1 month ago. HX Phaco IOL OU, PCF OS, and Mac Degen. Pt complains of glare, difficulty night driving, and problems with near vision. Patient also states she has a spot OS that she cannot see through and is not a floater. Pt wants to know more about her macular degeneration, using Preservision, or other treatments also. YAG The 74 year old female presents for YAG OD. Hx Phaco IOL OU, PCF OU, and Mac Degen. Pt states she has problems with glare at night and overall blurred vision OD. complete The 74 year old female presents for a complete in the right and left eye. Patient states somedays she has to blink sometimes to clear VA up. Somedays VA is really good. Functional Status Date Functional Assessmen t No Information Instructions Date Instruction Additional Infor cadence Impression/Plan Impression/Plan Impression/Plan Impression/Plan Impression/Plan Impression/Plan Impression/Plan Impression/Plan Impression/Plan Impression/Plan Impression/Plan Impression/Plan Impression/Plan Impression/Plan Impression/Plan Educational material given Relat ed to Pseudophakia of both eyes Impression/Plan Educational material provided Re lated to Primary open-angle glaucoma, left eye, mild stage Educational material provided Re lated to Primary open-angle glaucoma, left eye, mild stage Impression/Plan 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 Monitor. Related to Pseudophakia of both eyes Impression/Plan - No n-Neovascular Age Related Macular Degeneration Both Eyes Intermediate - Patient is not a smoker- Amsler grid and instructions reviewed- Recommend patient continue AREDS 2- Continue to follow with Dr. Palomo as scheduled Related to AMD (age-related macular degeneration), bilateral Impression/Plan - Pr imary open angle glaucoma OU- No Fam Hx- HVF 24-2 today showed OD large nasal step; OS atypical pattern, possible inferior arcuate. Discussed with pt that it is difficult to ascertain whether the defects are caused by her hx of RD or glaucoma, but we can use today's VF as a baseline to monitor for possible progression of glaucoma- C/D: .6 OU- Pt currently on Brimonidine bid ouIntraocular pressure well controlled, tolerating medications. Will continue with same regimen. Related to Primary open-angle glaucoma, bilateral, mild stage Primary open-angle g laucoma, bilateral, mild stage - Use of eye drops discussed Related to Primary open-angle glaucoma, bilateral, mild stage Primary open-angle g laucoma, left eye, moderate stage - Educational material provided Related to Primary open-angle glaucoma, left eye, moderate stage Follow up - Return i n 4 months for IOP check and OCT ON Impression/Plan - IO P within normal range OU, patient tolerating glaucoma drops well, Continue Brimonidine BID OU. Dr Palomo started patient on Glaucoma medication about a year ago due to OD IOP 30 and OS 25. Return to clinic in 4 months for IOP check and 24-2 visual covarrubias or sooner with any problems. Follow up - Return i n 4 months with Freddy Quan M.D. for IOP check with VF. Impression/Plan - Di scussed diagnosis in detail with patient. No change OCT ON. IOP within normal range with glaucoma treatment. Patient tolerating drops well, continue with same treatment at this time. Return to clinic in 4 months for IOP check with 24-2 visual covarrubias or sooner with any problems. Primary open-angle g laucoma, left eye, moderate stage - Educational material provided Related to Primary open-angle glaucoma, left eye, moderate stage Follow up - prn Impression/Plan - Di scussed diagnosis in detail. Apply hot compresses to eyelids every day. Start Doxy 50 mg QD x 3 weeks. ERx to [facility]. Patient aware styes can come to head and burst, or if it does not go away it can be injected a steroid or sometimes it requires surgically removal. IOP elevated. Increase Brimonidine BID OD and continue Pred QD OD as instructed. Return to clinic in 2 weeks unless styes resolves with treatment. Pt has appt to see RI in 3 weeks. Hordeolum externum o f right upper eyelid - Educational material given Related to Hordeolum externum of right upper eyelid Impression/Plan - Dr taylor license form completed for patient. AMD (age-related mac ular degeneration), bilateral - Educational material given Related to AMD (age-related macular degeneration), bilateral Follow up - Return i n [address] Ghosh for Complete Exam. Impression/Plan - Di scussed diagnosis in detail. IOL's in good position. Continue AREDS 2 BID for AMD OU. Scars OU from hx of retinal detachment. Will monitor. Pt is currently seeing Dr Ghosh yearly. Return to clinic in 6 months after next visit with Dr Ghosh for complete exam or sooner with any problems. - Return in 1 year w savanah Quan M.D. for Complete Exam Related to FOLLOW-UP SURGERY NOS - Good result after YAG, will continue to monitor pt. Return in 1 year for complete exam or sooner with any problems. Continue AREDS vitamins. Macular degeneration could be cause of floaters. Discussed sudden change of vision. If this occurs patient will call. Patient to continue with retina. Related to FOLLOW-UP SURGERY NOS - Return in 1 month with Freddy Quan M.D. for post op exam Related to After-cataract, obscuring vision - Good result after YAG OD, will continue to monitor pt. Proceed with Yag PC OS as scheduled. Patint tolerated procedure well, good post op va's and IOP; open pc. Return to clinic in 1 month for Yag post op OS. Related to After-cataract, obscuring vision - Proceed with Yag P C OD as scheduled. Post op VA and IOP good; open pc. Return in 1 month for Yag Post op OD or sooner with any problems. Related to After-cataract, obscuring vision - Return in 1 month with Freddy Quan M.D. for post op exam Related to After-cataract, obscuring vision - Schedule Yag PC OD Related to See list of assessments above - Discussed PCF form ation with pt, discussed YAG PC for treatment. R/a/b explained. Pt understands and will schedule. 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 Tdex to be used QID for 5 days then BID for 5 days. Disussed possibly seeing Dr. Pickett after doing gtts if eye is still watering. Will monitor. Related to LACRIML PUNCTUM STENOSIS FOLLOW-UP SURGERY NO S, OD - 2. week po phaco w/ PCIOL-established, stable - vision improved - will continue to monitor - Continue tapering gtts. Recommends ATs for dryness. No activity restrictions. Will monitor. Related to FOLLOW-UP SURGERY NOS - Dr. Ghosh August, 6 month IOL check Related to FOLLOW-UP SURGERY NOS - keep appt for a week 1week postop cat wit h pciol od-postop iop spike but iop now nl - stop all drops except t/dex post op iop spike bu rped wound 3 times and iop still 44.instilled combigan and azopt,waited 20min and iop still 40-tweaked wound again and iop 30 - t/dex qidhas AP and nevanec at home and will use bid - 1week - As sched OD- IOP check OU next visit Related to FOLLOW-UP SURGERY NOS FOLLOW-UP SURGERY NO S, OS - 2 week po phaco w/ PCIOL-established, stable - vision improved - will continue to monitor - Continue tapering gtts. No activity restrictions. Ok to proceed with OD. D/c Alphagan P. Check IOP OU at next visit. Related to FOLLOW-UP SURGERY NOS FOLLOW-UP SURGERY NO S, OS - 1 week po phaco w/ PCIOL-established, stable - vision improved - will continue to monitor - Continue tapering gtts. Continue Alphagan BID OS. No restrictions on activity. IOP still upper edge of normal. Will monitor. Related to FOLLOW-UP SURGERY NOS - 2 weeks IOP po check Related t o FOLLOW-UP SURGERY NOS - 1 week po Related to FOLLO W-UP SURGERY NOS FOLLOW-UP SURGERY NO S, OS - 1 day po phaco w/ PCIOL-vision improved - will continue to monitor - Discussed elevated IOP, wound burped. Gave sample of Alphagan to use BID OS until seen. PO regimen given, pt understands. Activity restrictions reviewed. Related to FOLLOW-UP SURGERY NOS - sched CE OS 1st Related to Cat aract, Nuclear Sclerosis Cataract, Nuclear Sc lerosis, OU - established, worsening - vision affected - may improve with surgery - Cataract(s) accounts for patient's complaints. Discussed all risks, benefits, procedures and recovery. Patient understands changing glasses will not improve vision. Patient desires to have surgery, recommend PE w/IOL. Pt understands IOL availability due to her high correction. 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 Ghosh and will need to be seen 4-6 weeks after CE for evaluation. Pt understands if pain redness or irritation occur contact us or Dr. Ghosh for eval Related to OLD DETACHMENT, PARTIAL Assessments Type Assessment Date No Information Patient Care Teams Name Effective Dates (start - stop) Status Members No Information
--- OUTSIDE RECORDS SUMMARY | 2024-10-24 18:11 | XMS_ITS | Encounter Summary ---
Author Organization [facility] Address [address] [place] [address] Care Team Providers Care Special Forces Officer Name Role Phone Raffaele Kaiser MD Primary Care Provider [facility] Encounter Details Date Type Department Care Team (Late st Contact Info) Description 02/05/2005 Outpatient Historical [facility] Internal Medicine 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
--- OUTSIDE RECORDS SUMMARY | 2024-10-24 18:11 | XMS_ITS | Encounter Summary ---
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
--- OUTSIDE RECORDS SUMMARY | 2024-10-24 18:11 | XMS_ITS | Encounter Summary ---
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
--- OUTSIDE RECORDS SUMMARY | 2024-10-24 18:11 | XMS_ITS | Encounter Summary ---
Author Organization [facility] Address [address] [place] [address] Care Team Providers Care Boiler Blower Name Role Phone Raffaele Kaiser MD [facility] Encounter Details Date Type Department Care Team (Late st Contact Info) Description 03/26/2005 Outpatient Historical [facility] Internal Medicine 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 Gender Identity Not on file Sexual Orientation Not on file documented as of this encounter Last Filed Vital Signs Vital Sign Reading Time Taken Comments Blood Pressure 160/110 03/26/2005 9:30 AM CDT Pulse 62 03/26/2005 9:30 AM CDT Temperature 36.4 C (97.5 F) 03/26/2005 9:30 AM CDT Respiratory Rate - - Oxygen Saturation - - Inhaled Oxygen Concentration - - Weight 91.6 kg (202 lb) 03/26/2005 9:30 AM CDT Height - - Body Mass Index - - documented in this encounter Plan of Treatment Not on file documented as of this encounter Visit Diagnoses Not on filedocumented in this encounter Care Teams Boiler Blower Relationship Specialty Start Date End Date Raffaele Kaiser MD NO ADDRESS ON FILE PCP - General 05/25/00 documented as of this encounter
--- OUTSIDE RECORDS SUMMARY | 2024-10-24 18:11 | XMS_ITS | Encounter Summary ---
Author Organization [facility] Address 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
--- OUTSIDE RECORDS SUMMARY | 2024-10-24 18:11 | XMS_ITS | Encounter Summary ---
Author Organization [facility] Address [address] [place] [address] Care Team Providers Care Electrical And Radio Mock Up Mechanic Name Role Phone Raffaele Kaiser MD [facility] Encounter Details Date Type Department Care Team (Late st Contact Info) Description 03/29/2003 Outpatient Historical [facility] Internal Medicine 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
--- OUTSIDE RECORDS SUMMARY | 2024-10-24 18:11 | XMS_ITS | Encounter Summary ---
Author Organization [facility] Address [address] [place] [address] Care Team Providers Care Ophthalmologist Retina Specialist Name Role Phone Raffaele Kaiser MD [facility] Encounter Details Date Type Department Care Team (Late st Contact Info) Description 12/13/2003 Outpatient Historical [facility] Internal Medicine 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
--- OUTSIDE RECORDS SUMMARY | 2024-10-24 18:11 | XMS_ITS | Encounter Summary ---
Author Organization [facility] Address [address] [place] [address] Care Team Providers Care Solution Design Engineer Name Role Phone Raffaele Kaiser MD [facility] Encounter Details Date Type Department Care Team (Late st Contact Info) Description 11/23/2002 Outpatient Historical [facility] Internal Medicine 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
--- OUTSIDE RECORDS SUMMARY | 2024-10-24 18:11 | XMS_ITS | Encounter Summary ---
Author Organization [facility] Address [address] [place] [address] Care Team Providers Care Director Food Safety Name Role Phone Raffaele Kaiser MD [facility] Encounter Details Date Type Department Care Team (Late st Contact Info) Description 04/23/2005 Outpatient Historical [facility] Internal Medicine 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
--- OUTSIDE RECORDS SUMMARY | 2024-10-24 18:11 | XMS_ITS | Encounter Summary ---
Author Organization [facility] Address [address] Attn: Epic Prelude ADT [place] [address] Care Team Providers Care Vice President [employer] Market Insights Name Role Phone Raffaele Kaiser MD Primary Care Provider U janeailazeb Encounter Details Date Type Department Care Team (Late st Contact Info) Description 07/06/1991 Outpatient Historical Raffaele Kaiser MD NO ADDRESS ON FILE Social History Tobacco Use Types Packs/Day Years Used Date Smoking Tobacco: Never Assessed Comments Unknown Sex and Gender Information Value Date Recorded Sex Assigned at Not on file Legal Sex Female 2:41 AM 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
--- OUTSIDE RECORDS SUMMARY | 2024-10-24 18:11 | XMS_ITS | Encounter Summary ---
Author Organization [facility] Address [address] [place] [address] Care Team Providers Care Settlement Technician Name Role Phone Raffaele Kaiser MD [facility] Encounter Details Date Type Department Care Team (Latest Contact Info) Description 02/23/2005 Outpatient Historical [facility] PAT[facility] IN A BED Chidi Galvan MD [address] [facility] [facility] [address] [place] [address] NONTOX MULTINODUL GOITER (Primary Dx) Social History Tobacco Use Types Packs/Day Years Used Date Smoking Tobacco: Never Assessed Comments Unknown Sex and Gender Information Value Date Recorded Sex Assigned at Not on file Legal Sex Female 2:41 AM CLINICAL SUPPORT ASSOCIATE Gender Identity Not on file Sexual Orientation Not on file documented as of this encounter Plan of Treatment Not on file documented as of this encounter Procedures Procedure Name Priority Date/Time Associated Diagnosis Comments HEMOGLOBIN AND HEMATOCRIT Routine 02/12/2005 12:44 PM CDT BASIC METABOLIC PANEL Routine 02/12/2005 12:44 PM CDT documented in this encounter Results * BASIC METABOLIC PANEL (02/12/2005 12:44 PM CDT) GLUCOSE 109 65 - 109 mg/dL INTERFACE SYSTEM CREATININE 0.8 0.4 - 1.2 mg/dL INTERFACE SYSTEM CALCIUM 9.1 8.6 - 10.2 mg/dL INTERFACE SYSTEM BUN 12 6 - 20 mg/dL INTERFACE SYSTEM SODIUM 141 135 - 145 mmol/L INTERFACE SYSTEM POTASSIUM 4.2 3.5 - 4.9 mmol/L INTERFACE SYSTEM CHLORIDE 106 96 - 108 mmol/L INTERFACE SYSTEM CO2 27 22 - 30 mmol/L INTERFACE SYSTEM 02/12/2005 12:4 4 PM CDT Chidi Galvan MD CHEMISTRY ORDERABLES Final Resul t Performing Organization Address City/[facility] Co de Phone Number INTERFACE SYSTEM Refer to clinic/hospital department * (ABNORMAL) HEMOGLOBIN AND HEMATOCRIT (02/12/2005 12:44 PM CDT) HEMOGLOBIN 14.9(H) 11.8 - 14.8 g/dL INTERFACE SYSTEM HEMATOCRIT 44.7(H) 35.5 - 44.0 % INTERFACE SYSTEM 02/12/2005 12:4 4 PM CDT us Chidi Galvan MD HEMATOLOGY ORDERABLES Final Resu lt Performing Organization Address City/[facility] Co de Phone Number INTERFACE SYSTEM Refer to clinic/hospital department documented in this encounter Visit Diagnoses Diagnosis Nontoxic multinodular goiter- Primary documented in this encounter Care Teams Settlement Technician Relationship Specialty Start Date End Date Raffaele Kaiser MD NO ADDRESS ON FILE PCP - General 05/25/00 documented as of this encounter
--- OUTSIDE RECORDS SUMMARY | 2024-10-24 18:11 | XMS_ITS | Encounter Summary ---
Author Organization [facility] Address [address] [place] [address] Care Team Providers Care Flag Maker Name Role Phone Raffaele Kaiser MD Primary Care Provider U verna Encounter Details Date Type Department Care Team (Late st Contact Info) Description 08/22/2002 Outpatient Historical [facility] Internal Medicine 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
--- OUTSIDE RECORDS SUMMARY | 2024-10-24 18:11 | XMS_ITS | Encounter Summary ---
Author Organization [facility] Address [address] [place] [address] Care Team Providers Care Adzing And Boring Machine Operator Name Role Phone Raffaele Kaiser MD Primary [facility] Encounter Details Date Type Department Care Team (Late st Contact Info) Description 01/08/2005 Outpatient Historical [facility] Internal Medicine [address] [place] [address] Raffaele Kaiser MD NO ADDRESS ON FILE Social History Tobacco Use Types Packs/Day Years Used Date Smoking Tobacco: Never Assessed Comments Unknown Sex and Gender Information Value Date Recorded Sex Assigned at Not on file Legal Sex Female 2:41 AM FISH FRYER Gender Identity Not on file Sexual Orientation Not on file documented as of this encounter Plan of Treatment Not on file documented as of this encounter Visit Diagnoses Not on filedocumented in this encounter Care Teams Adzing And Boring Machine Operator Relationship Specialty Start Date End Date Raffaele Kaiser MD NO ADDRESS ON FILE PCP - General 05/25/00 documented as of this encounter
--- OUTSIDE RECORDS SUMMARY | 2024-10-24 18:11 | XMS_ITS | Encounter Summary ---
Author Organization [facility] Address [address] [place] [address] Care Team Providers Care Motor Builder Assembler Name Role Phone Raffaele Kaiser MD Primary Care Provider Yehuda gillespie Encounter Details Date Type Department Care Team (Latest Contact Info) Description 06/14/2001 Outpatient Historical HIS [facility] Raffaele Blount MD NO ADDRESS ON FILE SCREENING MAMM-MAILG NEOPL-OTHER (Primary Dx) Social History Tobacco Use Types Packs/Day Years Used Date Smoking Tobacco: Never Assessed Comments Unknown Sex and Gender Information Value Date Recorded Sex Assigned at Not on file Legal Sex Female 2:41 AM FOIL STAMP OPERATOR Gender Identity Not on file Sexual Orientation Not on file documented as of this encounter Plan of Treatment Not on file documented as of this encounter Visit Diagnoses Diagnosis Other screening mammogram- Primary documented in this encounter Care Teams Motor Builder Assembler Relationship Specialty Start Date End Date Raffaele Kaiser MD NO ADDRESS ON FILE PCP - General 05/25/00 documented as of this encounter
--- OUTSIDE RECORDS SUMMARY | 2024-10-24 18:11 | XMS_ITS | Encounter Summary ---
Author Organization [facility] Address [address] Attn: Epic Prelude ADT [place] [address] Care Team Providers Care Replenishment Merchandising Associate Name Role Phone Raffaele Kaiser MD Primary Care Provider U janeailable Encounter Details Date Type Department Care Team (Late st Contact Info) Description 05/31/1991 Outpatient Historical Raffaele Kaiser MD NO ADDRESS ON FILE Social History Tobacco Use Types Packs/Day Years Used Date Smoking Tobacco: Never Assessed Comments Unknown Sex and Gender Information Value Date Recorded Sex Assigned at Not on file Legal Sex Female 2:41 AM MANAGER CAREER Gender Identity Not on file Sexual Orientation Not on file documented as of this encounter Plan of Treatment Not on file documented as of this encounter Visit Diagnoses Not on filedocumented in this encounter Care Teams Replenishment Merchandising Associate Relationship Specialty Start Date End Date Raffaele Kaiser MD NO ADDRESS ON FILE PCP - General 05/25/00 documented as of this encounter
--- OUTSIDE RECORDS SUMMARY | 2024-10-24 18:11 | XMS_ITS | Encounter Summary ---
Author Organization [facility] Address [address] [place] [address] Care Team Providers Care Wood Lathe Operator Name Role Phone Raffaele Kaiser MD [facility] Encounter Details Date Type Department Care Team (Late st Contact Info) Description 10/30/2002 Outpatient Historical [facility] Internal Medicine 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
--- OUTSIDE RECORDS SUMMARY | 2024-10-24 18:11 | XMS_ITS | Encounter Summary ---
Author Organization [facility] Address [address] [place] [address] Care Team Providers Care Radio Announcer Name Role Phone Raffaele Kaiser MD Primary [facility] Provider [facility] Encounter Details Date Type Department Care Team (Late st Contact Info) Description 01/08/2002 Outpatient Historical [facility] Support Serv. (Adt Cardiology-[facility]) [address] 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
--- OUTSIDE RECORDS SUMMARY | 2024-10-24 18:11 | XMS_ITS | Encounter Summary ---
Author Organization [facility] Address [address] [place] [address] Care Team Providers Care Social Work Assistant Name Role Phone Raffaele Kaiser MD Primary Care Provider [facility] [place] Encounter Details Date Type Department Care Team (Late st Contact Info) Description 07/17/2004 Outpatient Historical [facility] Internal Medicine [address] [place] [address] Raffaele Kaiser MD NO ADDRESS ON FILE Social History Tobacco Use Types Packs/Day Years Used Date Smoking Tobacco: Never Assessed Comments Unknown Sex and Gender Information Value Date Recorded Sex Assigned at Not on file Legal Sex Female 2:41 AM DIVIDER OPERATOR Gender Identity Not on file Sexual Orientation Not on file documented as of this encounter Plan of Treatment Not on file documented as of this encounter Visit Diagnoses Not on filedocumented in this encounter Care Teams Social Work Assistant Relationship Specialty Start Date End Date Raffaele Kaiser MD NO ADDRESS ON FILE PCP - General 05/25/00 documented as of this encounter
--- OUTSIDE RECORDS SUMMARY | 2024-10-24 18:12 | XMS_ITS | Clinical Summary ---
Author Organization [facility] Address [address] [place] [address] Care Team Providers Care Control Systems Developer Name Role Phone Raffaele Hogan DO Primary Care Provider [phone] Source Comments [facility],non-owned Affiliates and Associated Physician Practices is amultiple site organization consisting of ambulatory clinics and hospital sitesin [place], [place], [place] and [place]. This disclosure is being madepursuant to the Care Everywhere program and may not contain all information available regarding this patient. Last updated 18.[facility] Allergies Active Allergy Reactions Criticality Noted Date Comments Sulfa Drugs GI Discomfort 11/18/2018 Medications * Be aware that medications may not be up to date on this document. Alwaysverify current medications with the patient. Medication Sig Dispensed Refills Start Date End Date Status brimonidine 0.1 % (ALPHAGAN P) 0.1 % ophthalmic solution Activ e levothyroxine (SYNTHROID) 125 MCG tablet 125 mcg 02/11/2015 Active OMEPRAZOLE PO 20 mg 02/20/2016 Active fluticasone propionate (FLONASE) 50 MCG/ACT nasal spray inhale 1 spray by intranasal route every day in each nostril 02/20/2016 Active simvastatin (ZOCOR) 10 MG tablet 10 mg 02/11/2015 Active verapamil CR (ISOPTIN-SR) 240 MG tablet 240 mg 02/11/2015 Active Social History Tobacco Use Types Packs/Day Years Used Date Smoking Tobacco: Never Smokeless Tobacco: Never Alcohol Use Standard Drinks/Week Comments Yes 0 (1 standard drink = 0.6 oz pur e alcohol) occasional Sex and Gender Information Value Date Recorded Sex Assigned at Not on file Gender Identity Not on file Sexual Orientation Not on file Last Filed Vital Signs Vital Sign Reading Time Taken Comments Blood Pressure 166/105 11/18/2018 10:29 AM CDT Pulse 72 11/18/2018 10:29 AM CDT Temperature - - Respiratory Rate 16 11/18/2018 10:29 AM CDT Oxygen Saturation 99% 11/18/2018 10:29 AM CDT Inhaled Oxygen Concentration - - Weight 72.6 kg (160 lb) 11/18/2018 10:29 AM CDT Height 152.4 cm (5') 11/18/2018 10:29 AM CDT Body Mass Index 31.25 11/18/2018 10:29 AM CDT Plan of Treatment Health Maintenance Due Date Last Done Comments BONE DENSITY TESTING 1940 DTAP/TDAP/TD VACCINES (1 - Tdap) 1959 PNEUMOCOCCAL VACCINE 50+ (1 of 1 - PCV) 1990 ZOSTER VACCINE (1 of 2) 1990 Respiratory Syncytial Virus (RSV) Vaccine Pt: or over 60 yrs (1 - 1-dose 75+ series) 2015 COVID-19 VACCINE ( - 2023-2 5 season) 2024 INFLUENZA VACCINE (#1) 2024 DEPRESSION SCREENING 08/16/2024 MEDICARE AWV CALENDAR YEAR 2024 HEPATITIS B VACCINE Aged Out No longe r eligible based on patient's age to complete this topic HIB VACCINE Aged Out No longer eligi ble based on patient's age to complete this topic HPV VACCINE Aged Out No longer eligi ble based on patient's age to complete this topic MENINGOCOCCAL (Group B) VACCINE Aged Out No longer eligible based on patient's age to complete this topic MENINGOCOCCAL VACCINE Aged Out No ines drea eligible based on patient's age to complete this topic Care Teams Control Systems Developer Relationship Specialty Start Date End Date Raffaele Hogan DO PCP - General Internal Medicine 11/18/18
--- OUTSIDE RECORDS SUMMARY | 2024-10-24 18:12 | XMS_ITS | Encounter Summary ---
Author Organization [facility] Address [address] [place] [address] Care Team Providers Care Bicycle Taxi Driver Name Role Phone Raffaele Kaiser MD Primary Care Provider U verna Encounter Details Date Type Department Care Team (Late st Contact Info) Description 06/12/2004 Outpatient Historical [facility] DEPT Brian Mccauley MD NO ADDRESS ON FILE ABDOMINAL PAIN UNSPEC SITE (Primary Dx) Social History Tobacco Use Types Packs/Day Years Used Date Smoking Tobacco: Never Assessed Comments Unknown Sex and Gender Information Value Date Recorded Sex Assigned at Not on file Legal Sex Female 2:41 AM ENGINEER SECOND ASSISTANT Gender Identity Not on file Sexual Orientation Not on file documented as of this encounter Plan of Treatment Not on file documented as of this encounter Visit Diagnoses Diagnosis Abdominal pain, unspecified site- Primary documented in this encounter Care Teams Bicycle Taxi Driver Relationship Specialty Start Date End Date Raffaele Kaiser MD NO ADDRESS ON FILE PCP - General 05/25/00 documented as of this encounter
--- OUTSIDE RECORDS SUMMARY | 2024-10-24 18:12 | XMS_ITS | Encounter Summary ---
Author Organization [facility] Address [address] [place] [address] Care Team Providers Care Editor City Name Role Phone Raffaele Kaiser MD Primary Care Provider [facility] Encounter Details Date Type Department Care Team (Late st Contact Info) Description 09/08/2007 Orders Only [facility] Internal Medicine [address] [place] [address] Raffaele Kaiser MD NO ADDRESS ON FILE Social History Tobacco Use Types Packs/Day Years Used Date Smoking Tobacco: Never Assessed Comments Unknown Sex and Gender Information Value Date Recorded Sex Assigned at Not on file Legal Sex Female 2:41 AM BAG PATCHER Gender Identity Not on file Sexual Orientation Not on file documented as of this encounter Progress Notes * Raffaele Kaiser MD - 12/28/2007 8:11 PM CDT TIME:11:13 am PATIENT`S HOME PHONE: PATIENT`S WORK PHONE: PATIENT`S INSURANCE: [employer] WHO TOOK THE CALL: Blank Guzman L GENERAL INFORMATION PATIENT STATUS: Established Patient. ALTERNATIVE PHONE NUMBER: (A) WHO CALLED: Patient called. CURRENT ALLERGY LIST: NKDA PHARMACY NUMBER: [facility] @ SECTION 1: REQUESTED ACTION ryan 09/08/07 at 11:13 am: ADDITIONAL ACTION: Was seen for sinus infection 2006 and given RX and Nasonex. Worked well keeping her nose open . Would like RX for this to be called to pharmacy for her/rll DOCTOR`S RESPONSE: daysi 09/08/07 at 11:17 am MEDICATIONS: Call in to Pharmacy NASONEX NASAL SUSPENSION 50 MCG/ACT BOTTLES, 1 puff each nostril BID, 2 Dispensed, 6 Fills, status:NEW PRESCRIPTION, 09/08/2007. FINAL ACTION: cynthiabsharona 09/08/07 at 01:07 pm Left message on patient`s recorder or with a family member 09/08/2007 at 01:08 pm. Called pharmacy at 09/08/07 at 01:07 pm. ../[facility] Electronically Signed by: Elena Benito on August documented in this encounter Plan of Treatment Not on file documented as of this encounter Visit Diagnoses Not on filedocumented in this encounter Care Teams Editor City Relationship Specialty Start Date End Date Raffaele Kaiser MD NO ADDRESS ON FILE PCP - General 05/25/00 documented as of this encounter
--- OUTSIDE RECORDS SUMMARY | 2024-10-24 18:12 | XMS_ITS | Referral Summary ---
Author Organization [facility] Address [address] [place] [address] Care Team Providers Care Electronic Health Records Specialist Name Role Phone Raffaele Hogan DO Primary Care Provider [phone] Source Comments [facility],non-owned Affiliates and Associated Physician Practices is amultiple site organization consisting of ambulatory clinics and hospital sitesin [place], [place], [place] and [place]. This disclosure is being madepursuant to the Care Everywhere program and may not contain all information available regarding this patient. Last updated 18.[facility] Allergies Active Allergy Reactions Criticality Noted Date [...] 11/18/2018 10:29 AM CDT Plan of Treatment Not on file Care Teams Electronic Health Records Specialist Relationship Specialty Start Date End Date Raffaele Hgoan DO PCP - General Internal Medicine 11/18/18
--- OUTSIDE RECORDS SUMMARY | 2024-10-24 18:12 | XMS_ITS | Encounter Summary ---
Author Organization [facility] Address [address] [place] [address] Care Team Providers Care Energy Advisor Name Role Phone Raffaele Kaiser MD Primary Care Provider [facility] Encounter Details Date Type Department Care Team (Late st Contact Info) Description 05/31/2007 Orders Only [facility] Internal Medicine 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 NURSE NAME: Maria Esther Lizarraga A ALLERGIES: Allergies were reviewed. MEDICATIONS: Medication list current. CHIEF COMPLAINT Patient here for follow up hyperlipidemia, hypertension. HISTORY: HISTORY: 244.9-HYPOTHYROIDISM The hypothyroidism is stable. The patient denies any symptoms of hypothyroidism such as dry skin, hoarseness, loss of energy, cold intolerance, or weight gain. 272.4-HYPERLIPIDEMIA The patient has gained weight. The patient is compliant with the low saturatedfat diet. The patient`s exercise has increased. Currently the patient is off all medication. 401.1-HYPERTENSION ESSENTIAL BENIGN The patient has gained weight. The patient is compliant with diet. The patient`s exercise has increased. The blood pressure readings taken out of the office since the last visit are as follows: the systolic range has been:. The diastolic range has been. The patient denies chest pain, shortness of breath, dyspnea on exertion, pedal edema, or headache. HISTORY OF PRESENT ILLNESS: CURRENT PROBLEM LIST: 244.9 HYPOTHYROIDISM 272.4 HYPERLIPIDEMIA 401.1 HYPERTENSION ESSENTIAL BENIGN 780.79 FATIGUE 784.49 SYMPTOMS INVOLVING HEAD AND NECK V03.82 NEED FOR VACCINE PNEUMOCOCCUS V58.69 LONGTERM USE OF OTHER MEDICATION(S) V70.0 ROUTINE GENERAL MEDICAL EXAMINATION V76.41 SCREEN FOR CA OF RECTUM CURRENT MEDICATION LIST: SYNTHROID ORAL TABLET 125 MCG, 1 Every Day SIMVASTATIN ORAL TABLET 20 MG, 1 Every Morning CALAN SR ORAL TABLET CONTROLLED RELEASE 240 MG, 1/2 daily CURRENT ALLERGY LIST: NKDA ROS: GENERAL: Normal activity and energy level, no change in appetite. No major weight gain or loss. No malaise, chills, fever, diaphoresis.. ENT: No hearing loss, epistaxis, hoarseness or dysphagia. No sinus congestion.. ENDOCRINE: No heat or cold intolerance, no excessive thirst.. CARDIAC: See HISTORY OF PRESENT ILLNESS, HIGH BLOOD PRESSURE NOTED. RESPIRATORY: No dyspnea, cough, hemoptysis or wheezing.. : No frequency, urgency, hematuria or dysuria.. GI: No abdominal pain, nausea, vomiting, diarrhea, constipation, melena, or hematochezia.. PHYSICAL EXAMINATION: CONSTITUTIONAL: GENERAL APPEARANCE: Healthy appearing patient in no distress. NECK/THYROID: Trachea midline. No thyroid enlargement, tenderness, or mass. No supraclavicular or cervical adenopathy. RESPIRATORY: Clear to auscultation and percussion. Normal respiratory effort. CARDIOVASCULAR: CARDIAC: Regular rhythm. No murmurs, rubs, or gallops. ARTERIAL: No aortic bruits. EDEMA/VARICOSITIES OF EXTREMITIES: No edema or varicosities. GASTROINTESTINAL: ABDOMEN: Soft, non-tender, without masses. Bowel sounds active. LIVER/SPLEEN/KIDNEY: No hepatosplenomegaly, tenderness or nodularity. Kidneys not palpable. ASSESSMENT/PLAN: 244.9-HYPOTHYROIDISM ASSESSMENT: The patient appears stable. Will follow for signs of hypothyroidism. Will not change medication, continue to monitor for complications. No laboratory work is necessary at this time. STATUS: Improved. 272.4-HYPERLIPIDEMIA ASSESSMENT: Will not change medication, continue to monitor for complications. The patient is attempting to follow a low cholesterol diet. Weight loss was encouraged. Regular exercise was encouraged. STATUS: Improved. 401.1-HYPERTENSION ESSENTIAL BENIGN ASSESSMENT: The blood pressure remains satisfactory. Will not change medication, continue to monitor for complications. The patient was encouraged to follow a low salt diet. Regular exercise was encouraged. STATUS: Improved. RETURN VISIT : Patient instructed to return in 6 months.30 kmnutes Electronically Signed by: Raffaele Kaiser MD on Thursday, May 31, 2007 documented in this encounter Plan of Treatment Not on file documented as of this encounter Visit Diagnoses Not on filedocumented in this encounter Care Teams Energy Advisor Relationship Specialty Start Date End Date Raffaele Kaiser MD NO ADDRESS ON FILE PCP - General 05/25/00 documented as of this encounter
--- OUTSIDE RECORDS SUMMARY | 2024-10-24 18:12 | XMS_ITS | Encounter Summary ---
Author Organization [facility] Address [address] [place] [address] Care Team Providers Care Filling Carrier Name Role Phone Raffaele Kaiser MD Primary Care Provider [facility] Encounter Details Date Type Department Care Team (Latest Contact Info) Description 11/18/2004 Outpatient [facility] [address] [place] [address] & [place] [address] Raffaele Kaiser MD NO ADDRESS ON FILE AFTERCARE CHIEF RECORDIST USE MEDICATN (Primary Dx) Social History Tobacco Use Types Packs/Day Years Used Date Smoking Tobacco: Never Assessed Comments Unknown Sex and Gender Information Value Date Recorded Sex Assigned at Not on file 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 Gender Identity Not on file Sexual Orientation Not on file documented as of this encounter Plan of Treatment Not on file documented as of this encounter Procedures Procedure Name Priority Date/Time Associated Diagnosis Comments CBC WITH DIFFERENTIAL Routine 11/18/2004 12:45 PM CDT CBC WITH DIFFERENTIAL Routine 11/18/2004 12:45 PM CDT URINALYSIS W/REFLEX MICROSCOPIC Routine 11/18/2004 12:45 PM CDT TSH Routine 11/18/2004 12:45 PM CDT CK Routine 11/18/2004 12:45 PM CDT LIPID PANEL Routine 11/18/2004 12:45 PM CDT COMPREHENSIVE METABOLIC PANEL Routine 11/18/2004 12:45 PM CDT documented in this encounter Results * URINALYSIS (11/18/2004 12:45 PM CDT) COLOR UA Yellow INTERFACE SYSTEM CLARITY UA Clear Clear INTERFACE SYSTEM SPECIFIC GRAVITY UA 1.010 1.001 - 1.035 INTERFACE SYSTEM PH UA 7.0 5.0 - 8.0 INTERFACE SYSTEM LEUKOCYTE ESTERASE UA Negative Negative INTERFACE SYSTEM NITRITE UA Negative Negative INTERFACE SYSTEM PROTEIN UA Negative Negative INTERFACE SYSTEM GLUCOSE UA Negative Negative INTERFACE SYSTEM KETONES UA Negative Negative INTERFACE SYSTEM UROBILINOGEN UA <1 <1 EU INTE RFACE SYSTEM BILIRUBIN UA Negative Negative INTERFA CE SYSTEM BLOOD UA Negative Negative INTERFACE SYSTEM 11/18/2004 12:4 5 PM CDT Historical Provider URINE ORDERABLES Final Resul t Performing Organization Address City/[facility] Phone Number INTERFACE SYSTEM Refer to clinic/hospital department * CBC WITH DIFFERENTIAL (11/18/2004 12:45 PM CDT) NEUTROPHILS 48 45 - 70 % INTERFAC E SYSTEM LYMPHOCYTES 44 16 - 45 % INTERFAC E SYSTEM MONOCYTES 7 3 - 13 % INTERFACE SYSTEM EOSINOPHILS 1 0 - 7 % INTERFAC E SYSTEM BASOPHILS 0 0 - 2 % INTERFACE SYSTEM NEUTROPHIL ABSOLUTE 3.70 1.90 - 7.00 K/uL INTERFACE SYSTEM LYMPHOCYTE ABSOLUTE 3.40 0.70 - 4.50 K/uL INTERFACE SYSTEM MONOCYTE ABSOLUTE 0.51 0.10 - 1.30 K/uL INTERFACE SYSTEM EOSINOPHIL ABSOLUTE 0.10 0.00 - 0.70 K/uL INTERFACE SYSTEM BASOPHILS ABSOLUTE 0.02 0.00 - 0.20 K/uL INTERFACE SYSTEM 11/18/2004 12:4 5 PM CDT Historical Provider HEMATOLOGY ORDERABLES Final Result Performing Organization Address City/[facility] Phone Number INTERFACE SYSTEM Refer to clinic/hospital department * (ABNORMAL) CBC WITH DIFFERENTIAL (11/18/2004 12:45 PM CDT) WBC 7.7 4.0 - 9.8 K/uL INTERFACE SYSTEM RBC 5.13(H) 3.90 - 4.90 M/uL INTERFACE SYSTEM HEMOGLOBIN 14.1 11.8 - 14.8 g/dL INTERFACE SYSTEM HEMATOCRIT 44.2(H) 35.5 - 44.0 % INTERFACE SYSTEM MCV 86.2 82.0 - 99.0 fL INTERFACE SYSTEM MCH 27.5 27.2 - 32.6 pg INTERFACE SYSTEM MCHC 31.9 31.5 - 35.5 % INTERFACE SYSTEM RDW 13.5 11.5 - 14.5 % INTERFACE SYSTEM RDW-STDEV 43.0 37.1 - 48.7 fL INTERFACE SYSTEM PLATELETS 247 140 - 350 K/uL INTERFACE SYSTEM MPV 11.5 9.3 - 12.4 fL INTERFACE SYSTEM 11/18/2004 12:4 5 PM CDT us Historical Provider HEMATOLOGY ORDERABLES Final Result Performing Organization Address City/[facility] Co de Phone Number INTERFACE SYSTEM Refer to clinic/hospital department * CK (11/18/2004 12:45 PM CDT) CK 100 10 - 145 U/L INTERFACE SYSTEM 11/18/2004 12:4 5 PM CDT us Historical Provider CHEMISTRY ORDERABLES Final R esult Performing Organization Address City/[facility] Co de Phone Number INTERFACE SYSTEM Refer to clinic/hospital department * TSH (11/18/2004 12:45 PM CDT) TSH 1.73 0.27 - 4.20 uU/mL INTERFACE SYSTEM 11/18/2004 12:4 5 PM CDT us Historical Provider CHEMISTRY ORDERABLES Final R esult INTERFACE SYSTEM Refer to clinic/hospital department * (ABNORMAL) LIPID PANEL (11/18/2004 12:45 PM CDT) CHOLESTEROL 139 100 - 199 mg/dL INTERFACE SYSTEM TRIGLYCERIDE 65 10 - 149 mg/dL INTERFACE SYSTEM HDL 71(H) 40 - 59 mg/dL INTERFACE SYSTEM LDL CALCULATED 55 <=99 mg/dL INTERFACE SYSTEM CHOL/HDL RATIO 2.0 2.0 - 5.0 INTER FACE SYSTEM Comment:See interpretive ba a section for risk classifications. LIPID PANEL COMMENT See below INTERFACE SYSTEM Comment: Adult ATP III Classifications: Cholesterol (mg/dL) Triglyceride (mg/dL) Desirable <200 Normal <150 Borderline 200 - 239 Borderline High 150 - 199 High >=240 High 200 - 499 Very High >=500 HDL Cholesterol (mg/dL) LDL (mg/dL) Low (increased risk) <40 Optimal <100 High (reduced risk) >=60 Near or above optimal 100 - 129 Borderline 130 - 159 High 160 - 189 Very High >=190 LDL calculation is not accurate if Triglycerides are greater than 400 mg /dL Pediatric NCEP Classifications: Cholesterol(<20 years),(mg/dL) Triglyceride Desirable <170 Pediatric classification Borderline 170 - 199 not defined. High >=200 HDL (<5 years) LDL (mg/dL) No Reference Range Established Desirable <110 Borderline 110 - 129 High >=130 11/18/2004 12:4 5 PM CDT us Historical Provider CHEMISTRY ORDERABLES Final R esult INTERFACE SYSTEM Refer to clinic/hospital department * (ABNORMAL) COMPREHENSIVE METABOLIC PANEL (11/18/2004 12:45 PM CDT) GLUCOSE 78 65 - 109 mg/dL INTERFACE SYSTEM CREATININE 0.8 0.4 - 1.2 mg/dL INTERFACE SYSTEM CALCIUM 9.3 8.6 - 10.2 mg/dL INTERFACE SYSTEM AST 18 12 - 32 U/L INTERFACE SYSTEM ALKALINE PHOSPHATASE 71 35 - 104 U/L INTERFACE SYSTEM BUN 14 6 - 20 mg/dL INTERFACE SYSTEM BILIRUBIN TOTAL 0.6 0.2 - 1.0 mg/dL INTERFACE SYSTEM ALBUMIN 4.4 3.4 - 4.8 g/dL INTERFACE SYSTEM TOTAL PROTEIN 7.3 6.3 - 8.6 g/dL INTERFACE SYSTEM ALT 18 0 - 31 U/L INTERFACE SYSTEM SODIUM 146(H) 135 - 145 mmol/L INTERFACE SYSTEM POTASSIUM 3.7 3.5 - 4.9 mmol/L INTERFACE SYSTEM CHLORIDE 108 96 - 108 mmol/L INTERFACE SYSTEM CO2 27 22 - 30 mmol/L INTERFACE SYSTEM 11/18/2004 12:4 5 PM CDT us Historical Provider CHEMISTRY ORDERABLES Final R esult INTERFACE SYSTEM Refer to clinic/hospital department documented in this encounter Visit Diagnoses Diagnosis Encounter for long-term (current) use of other medications- Primary documented in this encounter Care Teams Filling Carrier Relationship Specialty Start Date End Date Raffaele Kaiser MD NO ADDRESS ON FILE PCP - General 05/25/00 documented as of this encounter
--- OUTSIDE RECORDS SUMMARY | 2024-10-24 18:12 | XMS_ITS | Encounter Summary ---
Author Organization [facility] Address 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
--- OUTSIDE RECORDS SUMMARY | 2024-10-24 18:12 | XMS_ITS | Encounter Summary ---
Author Organization [facility] Address [address] [place] [address] Care Team Providers Care Sanitation Director Name Role Phone Raffaele Kaiser MD Primary [facility] Provider [facility] Encounter Details Date Type Department Care Team (Late st Contact Info) Description 11/19/2005 Outpatient Historical [facility] Internal Medicine 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
--- OUTSIDE RECORDS SUMMARY | 2024-10-24 18:12 | XMS_ITS | Encounter Summary ---
Author Organization [facility] Address [address] [place] [address] Care Team Providers Care Burglar Alarm Inspector Name Role Phone Raffaele Kaiser MD Primary [facility] Provider [facility] Encounter Details Date Type Department Care Team (Late st Contact Info) Description 07/05/2007 Outpatient Historical [facility] Internal Medicine 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 Gender Identity Not on file Sexual Orientation Not on file documented as of this encounter Last Filed Vital Signs Vital Sign Reading Time Taken Comments Blood Pressure 110/75 07/05/2007 2:15 PM DOUBLE END TENONER OPERATOR Pulse 105 07/05/2007 2:15 PM DOUBLE END TENONER OPERATOR Temperature 36.9 C (98.5 F) 07/05/2007 2:15 PM DOUBLE END TENONER OPERATOR Respiratory Rate - - Oxygen Saturation - - Inhaled Oxygen Concentration - - Weight - - Height - - Body Mass Index - - documented in this encounter Plan of Treatment Not on file documented as of this encounter Visit Diagnoses Not on filedocumented in this encounter Care Teams Burglar Alarm Inspector Relationship Specialty Start Date End Date Raffaele Kaiser MD NO ADDRESS ON FILE PCP - General 05/25/00 documented as of this encounter
--- OUTSIDE RECORDS SUMMARY | 2024-10-24 18:12 | XMS_ITS | Encounter Summary ---
Author Organization [facility] Address [address] [place] [address] Care Team Providers Care Lmft Name Role Phone Raffaele Kaiser MD [facility] Encounter Details Date Type Department Care Team (Late st Contact Info) Description 11/19/2005 Outpatient Historical [facility] Internal Medicine 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
--- OUTSIDE RECORDS SUMMARY | 2024-10-24 18:12 | XMS_ITS | Encounter Summary ---
Author Organization [facility] Address [address] [place] [address] Care Team Providers Care Freezer Worker Name Role Phone Raffaele Kaiser MD Primary Care Provider [facility] Encounter Details Date Type Department Care Team (Late st Contact Info) Description 11/19/2005 Orders Only [facility] Internal Medicine 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 NURSE NAME: Maria Esther Lizarraga A ALLERGIES: No known drug allergies. MEDICATIONS: Medication list current. CHIEF COMPLAINT Patient here for follow up hyperlipidemia, hypertension, hypothyroidism, medicationmanagement. HISTORY: HISTORY: 244.9-HYPOTHYROIDISM The hypothyroidism is stable. The patient denies any symptoms of hypothyroidism such as dry skin, hoarseness, loss of energy, cold intolerance, or weight gain. No complications noted from the medication presently being used. No recent laboratory work done.sees Dr Cardenas yearly 272.4-HYPERLIPIDEMIA The patient`s weight is the same. The patient is compliant with the low saturated fat diet. The patient`s exercise is the same. The patient is tolerating the medications, compliant with medications, no complications noted. The patient has not had any labs done recently. 401.1-HYPERTENSION ESSENTIAL BENIGN The patient`s weight is the same. The patient is compliant withdiet. The patient`s exercise is the same. The patient denies chest pain, shortness of breath, dyspnea on exertion, pedal edema, or headache. The patient is tolerating the medication, compliant with medication. Labs will be obtained for this patient. 780.79-FATIGUE The patient's malaise and fatigue have improved. The patient's energy levels have not changed significantly. No complications noted from the medication presently being used. No recent laboratory work done. CURRENT PROBLEM LIST: 244.9 HYPOTHYROIDISM 272.4 HYPERLIPIDEMIA 401.1 HYPERTENSION ESSENTIAL BENIGN 780.79 FATIGUE 784.49 SYMPTOMS INVOLVING HEAD AND NECK V58.69 SENIOR CARE USE OF OTHER MEDICATION(S) CURRENT MEDICATION LIST: SYNTHROID ORAL TABLET 125 MCG, 1 Every Day CALAN SR ORAL TABLET CONTROLLED RELEASE 240 MG, 1/2 daily ZOCOR ORAL TABLET 20 MG, 1 po qd CURRENT ALLERGY LIST: NKDA ROS: GENERAL: DECREASED ENERGY LEVEL, FEELS FATIGUED, FEELS LETHARGIC. ALLERGIC/IMMUNOLOGIC: HAS ALLERGIC RHINITIS, HAS HAY FEVER. EYES: CATARACTS PRESENT BILATERALLY, no glaucoma, no macular degeneration, WEARS CORRECTIVE LENSES. ENT: No tinnitus, hearing loss, infections, drainage, or ear pain, no significant sinus congestion or pain, no gum swelling, bleeding, pain, sores or lip abnormalities, no epistaxis, soreness of the tongue, dysphagia, or hoarseness. ENDOCRINE: See HISTORY OF PRESENT ILLNESS, no history of diabetes, HAS A HISTORY OF THYROID PROBLEMS. benign nodules biopsy was negative S/P STT CARDIAC: No chest discomfort noted, no chest pain, no dyspnea on exertion, no edema noted, no heartmurmurs noted, no heart trouble noted, HIGH BLOOD PRESSURE NOTED, no orthopnea, no palpitations. RESPIRATORY: No dyspnea, cough, hemoptysis or wheezing. SKIN/BREAST/CHEST: No rashes or non-healing lesions. No breast symptoms noted. HEMATOLOGIC/LYMPHATIC: No anemia, easy bruising, bleeding or swollen nodes. : MENOPAUSE BEGAN AT 50 YEARS OF AGE, COMPLAINS OF MENOPAUSAL SYMPTOMS, no urinary problems noted. GI: No abdominal pain, nausea, vomiting, diarrhea, constipation, melena, or hematochezia. NEUROLOGIC: No weakness, dizziness, loss of consciousness, transient ischemic symptoms, or seizures. MUSCULOSKELETAL: See HISTORY OF PRESENT ILLNESS, ARTHRITIS PRESENT. right knee uses magnets PSYCHIATRIC: No increased nervousness, mood changes or depression. Coping well. PAST MEDICAL HISTORY: MEDICAL: Hypercholesterolemia, hypertension. SURGICAL: Appendectomy, partial thyroidectomy. CHILDHOOD DISEASES: Normal childhood diseases. FAMILY HISTORY: FATHER: The father is . The cause of was myocardial infarction. occurred at age52. MOTHER: The mother is . The cause of was a cerebrovascular accident. occurred at age 59. SIBLINGS: 1) The patient's brother is . The cause of was accidental. CHILDREN: One child. Healthy. SOCIAL HISTORY: MARITAL HISTORY: , living with spouse. LIVING WILL: The patient does not have a living will. TOBACCO USE: Has no significant smoking history. 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 ALCOHOL: Drinks a minimal amount of alcohol. CAFFEINE: Does not use caffeinated beverages. EXERCISES: The patient exercises regularly. The exercise is predominantly walking. DIET: Follows no specific diet. SAFETY ISSUES: Uses seat belts, has smoke alarms, carbon monoxide alarms. No guns in the home. STRESS ISSUES: None. PETS IN HOME: The patient has no pets. PHYSICAL EXAMINATION: CONSTITUTIONAL: GENERAL APPEARANCE: MILDLY OVERWEIGHT BODY HABITUS. EYES: CONJUNCTIVAE/LIDS: Conjunctivae and lids appear normal. PUPILS: Pupils equal and normally reactive to light and accommodation. EARS, NOSE, MOUTH AND THROAT: EXTERNAL/EARS AND NOSE: Overall appearance normal with no scars, lesions or masses. EARS: Tympanic membranes shiny without retraction. Canals unremarkable. Hearing grossly normal. NOSE (AND SINUS): No abnormality of the nose or sinuses is noted. ORAL: Inspection of gums, lips, palate, and teeth normal. No scars, lesions, or masses. Oral mucosaunremarkable with non-inflamed posterior pharynx. NECK/THYROID: Trachea midline. No thyroid enlargement, tenderness, or mass. No supraclavicular or cervical adenopathy. RESPIRATORY: Clear to auscultation and percussion. Normal respiratory effort. CARDIOVASCULAR: CARDIAC: Regular rhythm. No murmurs, rubs, or gallops. ARTERIAL: Aortic pulses of normal amplitude with no bruits. EDEMA/VARICOSITIES OF EXTREMITIES: No edema or varicosities. BREAST/CHEST: Breasts without tenderness, discharge or masses. No axillary adenopathy. LYMPHATICS: No lymphadenopathy in the neck, axillae, or groin. GASTROINTESTINAL: ABDOMEN: Soft, non-tender, without masses. Bowel sounds active. LIVER/SPLEEN/KIDNEY: No hepatosplenomegaly, tenderness or nodularity. Kidneys not palpable. HERNIA: No hernias are present. RECTAL: Rectal exam reveals no masses or hemorrhoids, sphincter tone is normal. STOOL/HEMOCCULT: Stool is hemoccult negative. MUSCULOSKELETAL EXAM: DIGITS/NAILS: No clubbing, cyanosis, inflammation, or ischemia. HEAD AND NECK: Normal to inspection and palpation with satisfactory range of motion. Strength adequate with normal stability. SPINE/RIBS/PELVIS: No kyphosis, lordosis, full range of motion. Normal stability, strength and tone. EXTREMITIES: PE/MS/BILAT UPPER EXT No misalignment or tenderness. Full range of motion. Normal stability, strength and tone. BILATERAL LOWER EXTREMITIES: No misalignment or tenderness. Full range of motion. Normal stability,strength and tone. SKIN: SKIN: Warm, dry, no diaphoresis, no significant lesions, irritation, rashes or ulcers. No induration, obvious subcutaneous nodules or tightening. NEUROLOGIC: DEEP TENDON REFLEXES: Deep tendon reflexes 2+/4 and symmetrical. SENSATION: Normal to touch, pinprick and vibration. ASSESSMENT/PLAN: 244.9-HYPOTHYROIDISM ASSESSMENT: The patient appears stable. Will follow for signs of hypothyroidism. Will not change medication, continue to monitor for complications. No laboratory work is necessary at this time. STATUS: Improved. 272.4-HYPERLIPIDEMIA ASSESSMENT: Will not change medication, continue to monitor for complications. The patient is attempting to follow a low cholesterol diet. Weight loss was encouraged. Regular exercise was encouraged.The patient's thyroid status is being followed, and is known to be normal presently. STATUS: Improved. 401.1-HYPERTENSION ESSENTIAL BENIGN ASSESSMENT: The blood pressure remains satisfactory. Will not change medication, continue to monitor for complications. The patient was encouraged to follow a low salt diet. Regular exercise was encouraged. Weight loss was discussed and encouraged. STATUS: Improved. 780.79-FATIGUE ASSESSMENT: The patient's malaise and fatigue are stable. Will not change medication, continue to monitor for complications. No laboratory work is necessary at this time. STATUS: Improved. LAB ORDERS: Order number: [id number] Test Ordered: EKG WITH INTERPRETATION AND REPORT 60861 V03.82-NEED FOR VACCINE PNEUMOCOCCUS ASSESSMENT: The patient needs a pneumovax and satisfies the criteria. LAB ORDERS: Order number: [id number] Test Ordered: INJ-PNEUMOVAX [id number] V76.41-SCREEN FOR CA OF RECTUM LAB ORDERS: Order number: [id number] Test Ordered: HEMOCCULT [id number] HEALTH MAINTENANCE: LAST BREAST EXAM DATE: wnl. LAST PAP DATE: wnl. PAP SMEAR PROVIDER: Dr Bejarano. LAST TD: 2003 ADVANCED DIRECTIVES DISCUSSED: yes. LAST DATE COLONOSCOPY: neg. LAST DATE FOBT: neg. LAST BONE DENSITY DATE: wnl/validation technician. LAST FLU VACCINE:2005 LAST FLU VACCINE:2004 TIME PHYSICIAN WITH PATIENT: TOTAL: 30 minutes. TIME PATIENT COUNSELED/CARE COORDINATED: 15 minutes. PREVENTIVE COUNSELING The patient was counseled regarding regular self- examination of the breasts on a monthly basis, colorectal cancer screening, diet, regular sustained exercise for at least 30 minutes 3-4 times per week, adult immunizations, the importance of completing a living will with medical directives and a health care power of immigration attorney, routine screening interval for mammogram as recommended by the [place] [employer] and ACOG, diagnosis, treatment, and prevention of osteoporosis. RETURN VISIT : Patient instructed to return in 6 months. Electronically Signed by: Raffaele Kaiser MD on November documented in this encounter Plan of Treatment Not on file documented as of this encounter Visit Diagnoses Not on filedocumented in this encounter Care Teams Freezer Worker Relationship Specialty Start Date End Date Raffaele Kaiser MD NO ADDRESS ON FILE PCP - General 05/25/00 documented as of this encounter
--- OUTSIDE RECORDS SUMMARY | 2024-10-24 18:12 | XMS_ITS | Encounter Summary ---
Author Organization [facility] Address [address] [place] [address] Care Team Providers Care Reel Cutter Name Role Phone Raffaele Kaiser MD [facility] Encounter Details Date Type Department Care Team (Late st Contact Info) Description 11/19/2005 Outpatient Historical [facility] Internal Medicine 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
--- OUTSIDE RECORDS SUMMARY | 2024-10-24 18:12 | XMS_ITS | Encounter Summary ---
Author Organization [facility] Address [address] [place] [address] Care Team Providers Care Hacksaw Inspector Name Role Phone Raffaele Kaiser MD [facility] Encounter Details Date Type Department Care Team (Late st Contact Info) Description 11/19/2005 Outpatient Historical [facility] Internal Medicine [address] [place] [address] Raffaele Kaiser MD NO ADDRESS ON FILE Social History Tobacco Use Types Packs/Day Years Used Date Smoking Tobacco: Never Assessed Comments Unknown Sex and Gender Information Value Date Recorded Sex Assigned at Not on file Legal Sex Female 2:41 AM PLATER HOT DIP Gender Identity Not on file Sexual Orientation Not on file documented as of this encounter Plan of Treatment Not on file documented as of this encounter Visit Diagnoses Not on filedocumented in this encounter Care Teams Hacksaw Inspector Relationship Specialty Start Date End Date Raffaele Kaiser MD NO ADDRESS ON FILE PCP - General 05/25/00 documented as of this encounter
--- OUTSIDE RECORDS SUMMARY | 2024-10-24 18:12 | XMS_ITS | Encounter Summary ---
Author Organization [facility] Address [address] [place] [address] Care Team Providers Care Fishing Tool Technician Oil Well Name Role Phone Raffaele Kaiser MD Primary Care Provider [facility] Encounter Details Date Type Department Care Team (Late st Contact Info) Description 05/31/2007 Outpatient Historical [facility] Internal Medicine 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 Gender Identity Not on file Sexual Orientation Not on file documented as of this encounter Last Filed Vital Signs Vital Sign Reading Time Taken Comments Blood Pressure 120/58 05/31/2007 11:30 AM CDT Pulse 63 05/31/2007 11:30 AM CDT Temperature 37 C (98.6 F) 05/31/2007 11:30 AM CDT Respiratory Rate - - Oxygen Saturation - - Inhaled Oxygen Concentration - - Weight 89.8 kg (198 lb) 05/31/2007 11:30 AM CDT Height - - Body Mass Index - - documented in this encounter Plan of Treatment Not on file documented as of this encounter Visit Diagnoses Not on filedocumented in this encounter Care Teams Fishing Tool Technician Oil Well Relationship Specialty Start Date End Date Raffaele Kaiser MD NO ADDRESS ON FILE PCP - General 05/25/00 documented as of this encounter
--- OUTSIDE RECORDS SUMMARY | 2024-10-24 18:12 | XMS_ITS | Encounter Summary ---
Author Organization [facility] Address [address] [place] [address] Care Team Providers Care Consulting Group Analyst Name Role Phone Raffaele Kaiser MD [facility] Encounter Details Date Type Department Care Team (Late st Contact Info) Description 12/02/[address] [facility] Internal Medicine [address] [place] [address] Raffaele Kaiser MD NO ADDRESS ON FILE Social History Tobacco Use Types Packs/Day Years Used Date Smoking Tobacco: Never Assessed Comments Unknown Sex and Gender Information Value Date Recorded Sex Assigned at Not on file Legal Sex Female 2:41 AM ACCOUNT SPECIALIST Gender Identity Not on file Sexual Orientation Not on file documented as of this encounter Plan of Treatment Not on file documented as of this encounter Visit Diagnoses Not on filedocumented in this encounter Care Teams Consulting Group Analyst Relationship Specialty Start Date End Date Raffaele Kaiser MD NO ADDRESS ON FILE PCP - General 05/25/00 documented as of this encounter
--- OUTSIDE RECORDS SUMMARY | 2024-10-24 18:12 | XMS_ITS | Encounter Summary ---
Author Organization [facility] Address [address] [place] [address] Care Team Providers Care Flame Degreaser Name Role Phone Raffaele Kaiser MD Primary [facility] Encounter Details Date Type Department Care Team (Late st Contact Info) Description 12/01/2007 Orders Only [facility] Internal Medicine 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 WEIGHT: [id number] NURSE NAME: Maria Esther Lizarraga, A CHIEF COMPLAINT Patient here for follow up hypertension, hyperlipidemia. HISTORY: HISTORY: 244.9-HYPOTHYROIDISM The hypothyroidism is stable. The patient denies any symptoms of hypothyroidism such as dry skin, hoarseness, loss of energy, cold intolerance, or weight gain. Currently the patient is off all medication. 272.4-HYPERLIPIDEMIA The patient has gained weight. The patient is compliant with the low saturatedfat diet. The patient`s exercise has increased. 401.1-HYPERTENSION ESSENTIAL BENIGN The patient has gained weight. The patient is compliant with diet. The patient`s exercise has increased. The patient denies chest pain, shortness of breath, dyspnea on exertion, pedal edema, or headache. The patient is tolerating the medication, compliant with medication. CURRENT PROBLEM LIST: 244.9 HYPOTHYROIDISM 272.4 HYPERLIPIDEMIA 381.00 OTITIS MEDIA ACUTE NONSUPPURATIVE 401.1 HYPERTENSION ESSENTIAL BENIGN 780.79 FATIGUE 784.49 SYMPTOMS INVOLVING HEAD AND NECK V03.82 NEED FOR VACCINE PNEUMOCOCCUS V58.69 COPPER MINER USE OF OTHER MEDICATION(S) V70.0 ROUTINE GENERAL MEDICAL EXAMINATION V76.41 SCREEN FOR CA OF RECTUM CURRENT MEDICATION LIST: SYNTHROID ORAL TABLET 125 MCG, 1 Every Day SIMVASTATIN ORAL TABLET 20 MG, 1 Every Morning CALAN SR ORAL TABLET CONTROLLED RELEASE 240 MG, 1/2 daily NASONEX NASAL SUSPENSION 50 MCG/ACT, 1 puff each nostril BID CURRENT ALLERGY LIST: NKDA ROS: GENERAL: Normal activity and energy level, no change in appetite. No major weight gain or loss. No malaise, chills, fever, diaphoresis.. ENT: No hearing loss, epistaxis, hoarseness or dysphagia. No sinus congestion.. ENDOCRINE: No heat or cold intolerance, no excessive thirst.. CARDIAC: No high blood pressure noted. RESPIRATORY: No dyspnea, cough, hemoptysis or wheezing.. [...] change medication, continue to monitor for complications. STATUS: Improved. 272.4-HYPERLIPIDEMIA ASSESSMENT: Will not change [...] diet. Regular exercise was encouraged. STATUS: Improved. Patient Education: RETURN VISIT : Patient instructed to return in 6 months.30 minutes Electronically Signed by: Raffaele Kaiser MD on November documented in this encounter Plan of Treatment Not on file documented as of this encounter Visit Diagnoses Not on filedocumented in this encounter Care Teams Flame Degreaser Relationship Specialty Start Date End Date Raffaele Kaiser MD NO ADDRESS ON FILE PCP - General 05/25/00 documented as of this encounter
--- OUTSIDE RECORDS SUMMARY | 2024-10-24 18:12 | XMS_ITS | Encounter Summary ---
Author Organization [facility] Address [address] [place] [address] Care Team Providers Care Motorboat Mechanic Name Role Phone Raffaele Kaiser MD [facility] Encounter Details Date Type Department Care Team (Late st Contact Info) Description 12/01/2007 Outpatient Historical [facility] Internal Medicine [address] [place] [address] Raffaele Kaiser MD NO ADDRESS ON FILE Social History Tobacco Use Types Packs/Day Years Used Date Smoking Tobacco: Never Assessed Comments Unknown Sex and Gender Information Value Date Recorded Sex Assigned at Not on file Legal Sex Female 2:41 AM LIMITED RADIOLOGY TECHNICIAN Gender Identity Not on file Sexual Orientation Not on file documented as of this encounter Plan of Treatment Not on file documented as of this encounter Visit Diagnoses Not on filedocumented in this encounter Care Teams Motorboat Mechanic Relationship Specialty Start Date End Date Raffaele Kaiser MD NO ADDRESS ON FILE PCP - General 05/25/00 documented as of this encounter
--- OUTSIDE RECORDS SUMMARY | 2024-10-24 18:12 | XMS_ITS | Encounter Summary ---
Author Organization [facility] Address [address] [place] [address] Care Team Providers Care Mental Health Associate Name Role Phone Raffaele Kaiser MD [facility] Encounter Details Date Type Department Care Team (Late st Contact Info) Description 12/02/2006 Outpatient Historical [facility] Internal Medicine 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
--- OUTSIDE RECORDS SUMMARY | 2024-10-24 18:12 | XMS_ITS | Encounter Summary ---
Author Organization [facility] Address [address] [place] [address] Care Team Providers Care Plating Tank Operator Apprentice Name Role Phone Raffaele Kaiser MD Primary Care Provider [facility] Encounter Details Date Type Department Care Team (Late st Contact Info) Description 05/27/2006 Outpatient Historical [facility] Internal Medicine 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 Gender Identity Not on file Sexual Orientation Not on file documented as of this encounter Last Filed Vital Signs Vital Sign Reading Time Taken Comments Blood Pressure 130/75 05/27/2006 11:30 AM CDT Pulse 70 05/27/2006 11:30 AM CDT Temperature 37 C (98.6 F) 05/27/2006 11:30 AM CDT Respiratory Rate - - Oxygen Saturation - - Inhaled Oxygen Concentration - - Weight 89.8 kg (198 lb) 05/27/2006 11:30 AM CDT Height - - Body Mass Index - - documented in this encounter Plan of Treatment Not on file documented as of this encounter Visit Diagnoses Not on filedocumented in this encounter Care Teams Plating Tank Operator Apprentice Relationship Specialty Start Date End Date Raffaele Kaiser MD NO ADDRESS ON FILE PCP - General 05/25/00 documented as of this encounter
--- OUTSIDE RECORDS SUMMARY | 2024-10-24 18:12 | XMS_ITS | Encounter Summary ---
Author Organization [facility] Address [address] [place] [address] Care Team Providers Care Nuclear Fuels Research Engineer Name Role Phone Raffaele Kaiser MD [facility] Encounter Details Date Type Department Care Team (Late st Contact Info) Description 11/18/2004 Outpatient Historical [facility] Internal Medicine [address] [place] [address] Raffaele Kaiser MD NO ADDRESS ON FILE Social History Tobacco Use Types Packs/Day Years Used Date Smoking Tobacco: Never Assessed Comments Unknown Sex and Gender Information Value Date Recorded Sex Assigned at Not on file Legal Sex Female 2:41 AM SUPERINTENDENT OPERATIONS DIVISION Gender Identity Not on file Sexual Orientation Not on file documented as of this encounter Plan of Treatment Not on file documented as of this encounter Visit Diagnoses Not on filedocumented in this encounter Care Teams Nuclear Fuels Research Engineer Relationship Specialty Start Date End Date Raffaele Kaiser MD NO ADDRESS ON FILE PCP - General 05/25/00 documented as of this encounter
--- OUTSIDE RECORDS SUMMARY | 2024-10-24 18:12 | XMS_ITS | Encounter Summary ---
Author Organization [facility] Address 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
--- OUTSIDE RECORDS SUMMARY | 2024-10-24 18:12 | XMS_ITS | Encounter Summary ---
Author Organization [facility] Address [address] [place] [address] Care Team Providers Care Powder Cutting Operator Name Role Phone Raffaele Kaiser MD Primary Care Provider [facility] Encounter Details Date Type Department Care Team (Late st Contact Info) Description 12/01/2007 Outpatient Historical [facility] Internal Medicine 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
--- OUTSIDE RECORDS SUMMARY | 2024-10-24 18:12 | XMS_ITS | Encounter Summary ---
Author Organization [facility] Address [address] [place] [address] Care Team Providers Care Teacher Of The Deaf Name Role Phone Raffaele Kaiser MD [facility] Encounter Details Date Type Department Care Team (Late st Contact Info) Description 07/05/2007 Orders Only [facility] Internal Medicine 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 NURSE NAME: Maria Esther Lizarraga A ALLERGIES: No known drug allergies. MEDICATIONS: Medication list current. CHIEF COMPLAINT Patient complains of sinus congestion, head congestion, nasal congestion. HISTORY: HISTORY: HISTORY OF PRESENT ILLNESS: UPPER RESPIRATORY: Onset is gradual. The upper respiratory symptoms began in the past 24 hours. Thepatient has no symptoms of chest congestion, no symptoms of chills, no symptoms of cough, bilateralearache, symptoms include ear popping, symptoms include facial pain, no symptoms of fever, no symptoms of myalgias, symptoms include nasal congestion, symptoms include nasal discharge, no symptoms ofnausea, no symptoms of sore throat, no symptoms of wheezing. The symptoms have been worsening. No therapies have been tried. CURRENT PROBLEM LIST: 244.9 HYPOTHYROIDISM 272.4 HYPERLIPIDEMIA 401.1 HYPERTENSION ESSENTIAL BENIGN 780.79 FATIGUE 784.49 SYMPTOMS INVOLVING HEAD AND NECK V03.82 NEED FOR VACCINE PNEUMOCOCCUS V58.69 USP USE OF OTHER MEDICATION(S) V70.0 ROUTINE GENERAL MEDICAL EXAMINATION V76.41 SCREEN FOR CA OF RECTUM CURRENT MEDICATION LIST: SYNTHROID ORAL TABLET 125 MCG, 1 Every Day SIMVASTATIN ORAL TABLET 20 MG, 1 Every Morning CALAN SR ORAL TABLET CONTROLLED RELEASE 240 MG, 1/2 daily CURRENT ALLERGY LIST: NKDA ROS: GENERAL: See HISTORY OF PRESENT ILLNESS. ENT: See HISTORY OF PRESENT ILLNESS. RESPIRATORY: See HISTORY OF PRESENT ILLNESS. PHYSICAL EXAMINATION: CONSTITUTIONAL: GENERAL APPEARANCE: Healthy appearing patient in no distress. EARS, NOSE, MOUTH AND THROAT: EARS: Tympanogram normal bilaterally, hearing grossly normal. NECK/THYROID: Trachea midline. No thyroid enlargement, tenderness, or mass. No supraclavicular or cervical adenopathy. RESPIRATORY: Clear to auscultation and percussion. Normal respiratory effort. CARDIOVASCULAR: CARDIAC: Regular rhythm. No murmurs, rubs, or gallops. ARTERIAL: No aortic bruits. EDEMA/VARICOSITIES OF EXTREMITIES: No edema or varicosities. GASTROINTESTINAL: ABDOMEN: Soft, non-tender, without masses. Bowel sounds active. LIVER/SPLEEN/KIDNEY: No hepatosplenomegaly, tenderness or nodularity. Kidneys not palpable. ASSESSMENT/PLAN: 381.00-OTITIS MEDIA ACUTE NONSUPPURATIVE MEDICATIONS: CIPROFLOXACIN HCL ORAL TABLET 500 MG, 1 Two Times A Day, 20 Dispensed, 1 Fills, status: NEW PRESCRIPTION, 07/05/2007. RETURN VISIT : Instructed to return earlier than the next regularly scheduled appointment if not improving. Electronically Signed by: Raffaele Kaiser MD on Thursday, July 05, 2007 documented in this encounter Plan of Treatment Not on file documented as of this encounter Visit Diagnoses Not on filedocumented in this encounter Care Teams Teacher Of The Deaf Relationship Specialty Start Date End Date Raffaele Kaiser MD NO ADDRESS ON FILE PCP - General 05/25/00 documented as of this encounter
--- OUTSIDE RECORDS SUMMARY | 2024-10-24 18:12 | XMS_ITS | Patient Health Summary ---
Author Organization [facility] Address [address] [place] [address] Care Team Providers Care Radiation Monitor Name Role Phone Raffaele Hogan DO Primary Care Provider [phone] Note from [facility],non-owned Affiliates and Associated Physician Practices is amultiple site organization consisting of ambulatory clinics and hospital sitesin [place], [place], [place] and [place]. This disclosure is being madepursuant to the Care Everywhere program and may not contain all information available regarding this patient. Last updated 18.[facility] Allergies * Sulfa Drugs(GI Discomfort) Medications * Be aware that medications may not be up to date on this document. Alwaysverify current medications with the patient. * brimonidine 0.1 % (ALPHAGAN P) 0.1 % ophthalmic solution * levothyroxine (SYNTHROID) 125 MCG tablet(Started 02/11/2015) 125 mcg * OMEPRAZOLE PO(Started 02/20/2016) 20 mg * fluticasone propionate (FLONASE) 50 MCG/ACT nasal spray(Started 02/20/2016) inhale 1 spray by intranasal route every day in each nostril * simvastatin (ZOCOR) 10 MG tablet(Started 02/11/2015) 10 mg * verapamil CR (ISOPTIN-SR) 240 MG tablet(Started 02/11/2015) 240 mg Social History Tobacco Use Types Packs/Day Years [...] Mass Index 31.25 11/18/2018 10:29 AM CDT Procedures * BREATH HYDROGEN/METHANE TEST(Performed 11/18/2018) Performed for Abdominal bloating, Abdominal pain, unspecified abdominal location Care Teams Radiation Monitor Relationship Specialty Start Date End Date Raffaele Hogan DO PCP - General Internal Medicine 11/18/18
--- OUTSIDE RECORDS SUMMARY | 2024-10-24 18:12 | XMS_ITS | Clinical Summary ---
Author Organization [facility] Address [address] [place] [address] Care Team Providers Care Fourdrinier Wire Weaver Name Role Phone Unavailable Primary Care Provider Unavailabl e Social History Tobacco Use Types Packs/Day Years Used Date Smoking Tobacco: Never Assessed Comments Unknown Sex and Gender Information Value Date Recorded Sex Assigned at Not on file Legal Sex Female 7:58 PM CDT Gender Identity Not on file Sexual Orientation Not on file Plan of Treatment Health Maintenance Due Date Last Done Comments DTaP, Tdap and Td Vaccines ( 1 - Tdap) 1959 Zoster Vaccines (1 of 2) 1990 Dexa Scan (General) 2005 Pneumococcal Vaccine: 65+ Ye ars (1 of 1 - PCV) 2005 RSV Immunization or 60+ Years (1 - 1-dose 75+ series) 2015 COVID-19 Vaccine ( - 2023-2 5 season) 2024 Influenza Adult (#1) 2024 Meningococcal B Vaccine Aged Out No l onger eligible based on patient's age to complete this topic Meningococcal Vaccine Aged Out No ines drea eligible based on patient's age to complete this topic RSV Immunizations Under 20 Months Aged Out No longer eligible based on patient's age to complete this topic
[2024-10-24 18:16] LABS: Influenza A QL RT-PCR Positive (Negative); Influenza B QL RT-PCR Negative (Negative); RSV RNA, RT-PCR Negative (Negative); SARS-CoV-2 RNA PCR Negative (Negative)
--- OUTSIDE RECORDS SUMMARY | 2024-10-24 21:09 | XMS_ITS | Clinical Summary ---
Author Organization [facility] Address [address] [place] [address] Care Team Providers Care Stapling Machine Operator Name Role Phone Raffaele Kaiser [...] 1 4 Active mometasone (NASONEX) 50 mcg/actuation [place], Non-Aerosol Administer 1 [place] in each nostril 2 times daily. 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
--- OUTSIDE RECORDS SUMMARY | 2024-10-24 21:09 | XMS_ITS | Encounter Summary ---
Author Organization [facility] Address [address] [place] [address] Care Team Providers Care Computer Animator Name Role Phone Raffaele Kaiser MD Primary Care Provider [facility] Encounter Details Date Type Department Care Team (Latest Contact Info) Description 02/23/2005 Outpatient Historical [facility]ED Chidi Galvan MD [address] [facility] 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 Gender Identity Not on file Sexual [...] ORDERABLES Final Resul t Performing Organization Address City/[facility] Co de Phone Number INTERFACE SYSTEM Refer to clinic/hospital department * (ABNORMAL) HEMOGLOBIN AND HEMATOCRIT (02/12/2005 12:44 PM CDT) HEMOGLOBIN 14.9(H) 11.8 - 14.8 g/dL INTERFACE SYSTEM HEMATOCRIT 44.7(H) 35.5 - 44.0 % INTERFACE SYSTEM 02/12/2005 12:4 4 PM CDT us Chidi Galvan MD HEMATOLOGY ORDERABLES Final Resu lt Performing Organization Address City/[facility] Co de Phone Number INTERFACE SYSTEM Refer to clinic/hospital department documented in this encounter Visit Diagnoses Diagnosis Nontoxic multinodular goiter- Primary documented in this encounter Care Teams Computer Animator Relationship Specialty Start Date End Date Raffaele Kaiser MD NO ADDRESS ON FILE PCP - General 05/25/00 documented as of this encounter
--- OUTSIDE RECORDS SUMMARY | 2024-10-24 21:09 | XMS_ITS | Encounter Summary ---
Author Organization [facility] Address [address] [place] [address] Care Team Providers Care Sales Representative Public Utilities Name Role Phone Raffaele Kaiser MD Primary Care Provider [facility] Encounter Details Date Type Department Care Team (Late st Contact Info) Description 12/01/2007 Outpatient Historical [facility] Internal Medicine 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
--- OUTSIDE RECORDS SUMMARY | 2024-10-24 21:09 | XMS_ITS | Encounter Summary ---
Author Organization [facility] Address [address] [place] [address] Care Team Providers Care Casing Crew Pusher Name Role Phone Raffaele Kaiser MD Primary Care Provider [facility] Encounter Details Date Type Department Care Team (Late st Contact Info) Description 12/01/2007 Outpatient Historical [facility] Internal Medicine 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
--- OUTSIDE RECORDS SUMMARY | 2024-10-24 21:09 | XMS_ITS | Encounter Summary ---
Author Organization [facility] Address [address] [place] [address] Care Team Providers Care Surface Grinder Name Role Phone Raffaele Kaiser MD [facility] Encounter Details Date Type Department Care Team (Late st Contact Info) Description 12/02/2007 Outpatient Historical [facility] Internal Medicine 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
--- OUTSIDE RECORDS SUMMARY | 2024-10-24 21:09 | XMS_ITS | Encounter Summary ---
Author Organization [facility] Address [address] [place] [address] Care Team Providers Care Linen Room Worker Name Role Phone Raffaele Kaiser MD Primary Care Provider U verna Encounter Details Date Type Department Care Team (Latest Contact Info) Description 12/13/2003 Outpatient [facility] [address] [place] [address] & [place] [address] Raffaele Kaiser MD NO ADDRESS ON FILE AFTERCARE BELT DRESSER USE MEDICATN (Primary Dx) Social History Tobacco Use Types Packs/Day Years Used Date Smoking Tobacco: Never Assessed Comments Unknown Sex and Gender Information Value Date Recorded Sex Assigned at Not on file Legal 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
--- OUTSIDE RECORDS SUMMARY | 2024-10-24 21:09 | XMS_ITS | Encounter Summary ---
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
--- OUTSIDE RECORDS SUMMARY | 2024-10-24 21:09 | XMS_ITS | Encounter Summary ---
Author Organization [facility] Address 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
--- OUTSIDE RECORDS SUMMARY | 2024-10-24 21:09 | XMS_ITS | Encounter Summary ---
Author Organization [facility] Address 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
--- OUTSIDE RECORDS SUMMARY | 2024-10-24 21:09 | XMS_ITS | Encounter Summary ---
Author Organization [facility] Address [address] [place] [address] Care Team Providers Care Main Galley Scullion Name Role Phone Raffaele Kaiser MD Primary Care Provider U verna Encounter Details Date Type Department Care Team (Latest Contact Info) Description 04/03/[address] 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
--- OUTSIDE RECORDS SUMMARY | 2024-10-24 21:09 | XMS_ITS | Encounter Summary ---
Author Organization [facility] Address [address] [place] [address] Care Team Providers Care Cutter Grind Tool Technician Name Role Phone Raffaele Kaiser MD Primary Care Provider [facility] Encounter Details Date Type Department Care Team (Late st Contact Info) Description 10/30/2002 Outpatient Historical [facility] Internal Medicine [address] [place] [address] Raffaele Kaiser MD NO ADDRESS ON FILE Social History Tobacco Use Types Packs/Day Years Used Date Smoking Tobacco: Never Assessed Comments Unknown Sex and Gender Information Value Date Recorded Sex Assigned at Not on file Legal Sex Female 2:41 AM BRASS FINISHER Gender Identity Not on file Sexual Orientation Not on file documented as of this encounter Plan of Treatment Not on file documented as of this encounter Visit Diagnoses Not on filedocumented in this encounter Care Teams Cutter Grind Tool Technician Relationship Specialty Start Date End Date Raffaele Kaiser MD NO ADDRESS ON FILE PCP - General 05/25/00 documented as of this encounter
--- OUTSIDE RECORDS SUMMARY | 2024-10-24 21:09 | XMS_ITS | Encounter Summary ---
Author Organization [facility] Address 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
--- OUTSIDE RECORDS SUMMARY | 2024-10-24 21:09 | XMS_ITS | Encounter Summary ---
Author Organization [facility] Address [address] [facility] Attn: Epic Prelude ADT MARIAH SANDOVAL [address] Care Team Providers Care Soda Tester Name Role Phone Raffaele Kaiser MD Primary Care Provider U janeailazeb Encounter Details Date Type Department Care Team (Late st Contact Info) Description 04/14/1990 Outpatient Historical Chidi Urban MD [address] [address] Social History Tobacco Use Types Packs/Day Years Used Date Smoking Tobacco: Never Assessed Comments Unknown Sex and Gender Information Value Date Recorded Sex Assigned at Not on file Legal Sex Female 2:41 AM ICING MAKER Gender Identity Not on file Sexual Orientation Not on file documented as of this encounter Plan of Treatment Not on file documented as of this encounter Visit Diagnoses Not on filedocumented in this encounter Care Teams Soda Tester Relationship Specialty Start Date End Date Raffaele Kaiser MD NO ADDRESS ON FILE PCP - General 05/25/00 documented as of this encounter
--- OUTSIDE RECORDS SUMMARY | 2024-10-24 21:09 | XMS_ITS | Encounter Summary ---
Author Organization [facility] Address [address] [place] [address] Care Team Providers Care Outsole Leveler Name Role Phone Raffaele Kaiser MD Primary [facility] Provider [facility] Encounter Details Date Type Department Care Team (Late st Contact Info) Description 11/19/[address] [facility] Internal Medicine 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
--- OUTSIDE RECORDS SUMMARY | 2024-10-24 21:09 | XMS_ITS | Encounter Summary ---
Author Organization [facility] Address [address] [place] [address] Care Team Providers Care Electronic Sales And Service Technician Name Role Phone Raffaele Kaiser MD Primary Care Provider [facility] Encounter Details Date Type Department Care Team (Late st Contact Info) Description 04/23/2005 Outpatient Historical [facility] Internal Medicine [address] [place] [address] Raffaele Kaiser MD NO ADDRESS ON FILE Social History Tobacco Use Types Packs/Day Years Used Date Smoking Tobacco: Never Assessed Comments Unknown Sex and Gender Information Value Date Recorded Sex Assigned at Not on file Legal Sex Female 2:41 AM RAIL GRINDER Gender Identity Not on file Sexual Orientation Not on file documented as of this encounter Plan of Treatment Not on file documented as of this encounter Visit Diagnoses Not on filedocumented in this encounter Care Teams Electronic Sales And Service Technician Relationship Specialty Start Date End Date Raffaele Kaiser MD NO ADDRESS ON FILE PCP - General 05/25/00 documented as of this encounter
--- OUTSIDE RECORDS SUMMARY | 2024-10-24 21:09 | XMS_ITS | Encounter Summary ---
Author Organization [facility] Address [address] [place] [address] Care Team Providers Care Clothing Manager Name Role Phone Raffaele Kaiser MD Primary [facility] Encounter Details Date Type Department Care Team (Late st Contact Info) Description 02/05/2005 Outpatient Historical [facility] Internal Medicine [address] [place] [address] Raffaele Kaiser MD NO ADDRESS ON FILE Social History Tobacco Use Types Packs/Day Years Used Date Smoking Tobacco: Never Assessed Comments Unknown Sex and Gender Information Value Date Recorded Sex Assigned at Not on file Legal Sex Female 2:41 AM ROLLER BILLET MILL Gender Identity Not on file Sexual Orientation Not on file documented as of this encounter Plan of Treatment Not on file documented as of this encounter Visit Diagnoses Not on filedocumented in this encounter Care Teams Clothing Manager Relationship Specialty Start Date End Date Raffaele Kaiser MD NO ADDRESS ON FILE PCP - General 05/25/00 documented as of this encounter
--- OUTSIDE RECORDS SUMMARY | 2024-10-24 21:09 | XMS_ITS | Encounter Summary ---
Author Organization [facility] Address [address] [facility] Attn: Epic Prelude ADT MARIAH SANDOVAL [address] Care Team Providers Care Soft Sugar Operator Head Name Role Phone Raffaele Kaiser MD Primary [...] on file Legal Sex Female 2:41 AM COUNTER CONTROL OPERATOR Gender Identity Not on file Sexual Orientation Not on file documented as of this encounter Plan of Treatment Not on file documented as of this encounter Visit Diagnoses Not on filedocumented in this encounter Care Teams Soft Sugar Operator Head Relationship Specialty Start Date End Date Raffaele Kaiser MD NO ADDRESS ON FILE PCP - General 05/25/00 documented as of this encounter
--- OUTSIDE RECORDS SUMMARY | 2024-10-24 21:09 | XMS_ITS | Encounter Summary ---
Author Organization [facility] Address [address] [place] [address] Care Team Providers Care Hand Lens Polisher Name Role Phone Raffaele Kaiser MD Primary Care Provider U verna Encounter Details Date Type Department Care Team (Late st Contact Info) Description 11/20/2002 Outpatient Historical [facility] Tuan Florentino MD [address] [id number] INTEST MALABSORPTION NEC (Primary Dx) Social History Tobacco Use Types Packs/Day Years Used Date Smoking Tobacco: Never Assessed Comments Unknown Sex and Gender Information Value Date Recorded Sex Assigned at Not on file Legal Sex Female 2:41 AM ELECTRICAL ASSEMBLER Gender Identity Not on file Sexual Orientation Not on file documented as of this encounter Plan of Treatment Not on file documented as of this encounter Visit Diagnoses Diagnosis Other specified intestinal malabsorption- Primary documented in this encounter Care Teams Hand Lens Polisher Relationship Specialty Start Date End Date Raffaele Kaiser MD NO ADDRESS ON FILE PCP - General 05/25/00 documented as of this encounter
--- OUTSIDE RECORDS SUMMARY | 2024-10-24 21:09 | XMS_ITS | Clinical Summary ---
Author Organization [facility] Address [address] [place] [address] Care Team Providers Care Infantry Assaultman Name Role Phone Unavailable Primary Care Provider [...]
--- OUTSIDE RECORDS SUMMARY | 2024-10-24 21:09 | XMS_ITS | Encounter Summary ---
Author Organization [facility] Address [address] [place] [address] Care Team Providers Care Assembler Wet Wash Name Role Phone Raffaele Kaiser MD Primary Care Provider [facility] Encounter Details Date Type Department Care Team (Late st Contact Info) Description 11/19/2005 Outpatient Historical [facility] Internal Medicine [address] [place] [address] Raffaele Kaiser MD NO ADDRESS ON FILE Social History Tobacco Use Types Packs/Day Years Used Date Smoking Tobacco: Never Assessed Comments Unknown Sex and Gender Information Value Date Recorded Sex Assigned at Not on file Legal Sex Female 2:41 AM WRITER Gender Identity Not on file Sexual Orientation Not on file documented as of this encounter Plan of Treatment Not on file documented as of this encounter Visit Diagnoses Not on filedocumented in this encounter Care Teams Assembler Wet Wash Relationship Specialty Start Date End Date Raffaele Kaiser MD NO ADDRESS ON FILE PCP - General 05/25/00 documented as of this encounter
--- OUTSIDE RECORDS SUMMARY | 2024-10-24 21:09 | XMS_ITS | Encounter Summary ---
Author Organization [facility] Address [address] [place] [address] Care Team Providers Care Paper Wood Cutter Name Role Phone Raffaele Kaiser MD Primary Care Provider [facility] Encounter Details Date Type Department Care Team (Late st Contact Info) Description 11/19/2005 Outpatient Historical [facility] Internal Medicine [address] [place] [address] Raffaele Kaiser MD NO ADDRESS ON FILE Social History Tobacco Use Types Packs/Day Years Used Date Smoking Tobacco: Never Assessed Comments Unknown Sex and Gender Information Value Date Recorded Sex Assigned at Not on file Legal Sex Female 2:41 AM PHARMACY TECHNICIAN INSTRUCTOR Gender Identity Not on file Sexual Orientation Not on file documented as of this encounter Plan of Treatment Not on file documented as of this encounter Visit Diagnoses Not on filedocumented in this encounter Care Teams Paper Wood Cutter Relationship Specialty Start Date End Date Raffaele Kaiser MD NO ADDRESS ON FILE PCP - General 05/25/00 documented as of this encounter
--- OUTSIDE RECORDS SUMMARY | 2024-10-24 21:09 | XMS_ITS | Encounter Summary ---
Author Organization [facility] Address [address] [place] [address] Care Team Providers Care Distillery Miller Helper Name Role Phone Raffaele Kaiser MD Primary Care Provider U verna Encounter Details Date Type Department Care Team (Latest Contact Info) Description 11/06/2002 Outpatient [facility] for [employer] [address] & [place] [address] Raffaele Kaiser MD NO ADDRESS ON FILE CHEST PAIN NOS (Primary Dx) Social History Tobacco Use Types Packs/Day Years Used Date Smoking Tobacco: Never Assessed Comments Unknown Sex and Gender Information Value Date Recorded Sex Assigned at Not on file Legal Sex Female 2:41 AM TRADEMARK ATTORNEY Gender Identity Not on file Sexual Orientation Not on file documented as of this encounter Plan of Treatment Not on file documented as of this encounter Visit Diagnoses Diagnosis Chest pain, unspecified- Primary documented in this encounter Care Teams Distillery Miller Helper Relationship Specialty Start Date End Date Raffaele Kaiser MD NO ADDRESS ON FILE PCP - General 05/25/00 documented as of this encounter
--- OUTSIDE RECORDS SUMMARY | 2024-10-24 21:09 | XMS_ITS | Encounter Summary ---
Author Organization [facility] Address [address] [facility] Attn: Epic Prelude ADT MARIAH SANDOVAL [address] Care Team Providers Care Lab Assistant Name Role Phone Raffaele Kaiser MD [...] on file Legal Sex Female 2:41 AM ASSESSMENT EXPERT Gender Identity Not on file Sexual Orientation Not on file documented as of this encounter Plan of Treatment Not on file documented as of this encounter Visit Diagnoses Not on filedocumented in this encounter Care Teams Lab Assistant Relationship Specialty Start Date End Date Raffaele Kaiser MD NO ADDRESS ON FILE PCP - General 05/25/00 documented as of this encounter
--- OUTSIDE RECORDS SUMMARY | 2024-10-24 21:09 | XMS_ITS | Encounter Summary ---
Author Organization [facility] Address [address] [place] [address] Care Team Providers Care Historic Interpreter Name Role Phone Raffaele Kaiser MD Primary Care Provider verna Encounter Details Date Type Department Care Team (Latest Contact Info) Description 04/28/1999 Outpatient Historical [facility] Raffaele Blount MD NO ADDRESS ON FILE Other screening mammogram (Primary Dx) Social History Tobacco Use Types Packs/Day Years Used Date Smoking Tobacco: Never Assessed Comments Unknown Sex and Gender Information Value Date Recorded Sex Assigned at Not on file Legal Sex Female 2:41 AM PAYROLL AND BENEFITS ASSISTANT Gender Identity Not on file Sexual Orientation Not on file documented as of this encounter Plan of Treatment Not on file documented as of this encounter Visit Diagnoses Diagnosis Other screening mammogram- Primary documented in this encounter Care Teams Historic Interpreter Relationship Specialty Start Date End Date Raffalee Kaiser MD NO ADDRESS ON FILE PCP - General 05/25/00 documented as of this encounter
--- OUTSIDE RECORDS SUMMARY | 2024-10-24 21:09 | XMS_ITS | Encounter Summary ---
Author Organization [facility] Address [address] [place] [address] Care Team Providers Care Lace Weaver Name Role Phone Raffaele Kaiser MD Primary Care Provider U verna Encounter Details Date Type Department Care Team (Latest Contact Info) Description 06/28/2003 Outpatient [facility] [place] [facility] [address] & [place] [address] Raffaele Kaiser MD NO ADDRESS ON FILE PURE HYPERCHOLESTEROLEM (Primary Dx) Social History Tobacco Use Types Packs/Day Years Used Date Smoking Tobacco: Never Assessed Comments Unknown Sex and Gender Information Value Date Recorded Sex Assigned at Not on file Legal Sex Female 2:41 AM EMERGENCY DEPARTMENT AIDE Gender Identity Not on file Sexual Orientation Not on file documented as of this encounter Plan of Treatment Not on file documented as of this encounter Visit Diagnoses Diagnosis Pure hypercholesterolemia- Primary documented in this encounter Care Teams Lace Weaver Relationship Specialty Start Date End Date Raffaele Kaiser MD NO ADDRESS ON FILE PCP - General 05/25/00 documented as of this encounter
--- OUTSIDE RECORDS SUMMARY | 2024-10-24 21:09 | XMS_ITS | Encounter Summary ---
Author Organization [facility] Address [address] [place] [address] Care Team Providers Care Carpenter'S Assistant Name Role Phone Raffaele Kaiser MD [facility] Encounter Details Date Type Department Care Team (Late st Contact Info) Description 07/05/2007 Orders Only [facility] Internal Medicine [address] [place] [address] Raffaele Kaiser MD NO ADDRESS ON FILE Social History Tobacco Use Types Packs/Day Years Used Date Smoking Tobacco: Never Assessed Comments Unknown Sex and Gender Information Value Date Recorded Sex Assigned at Not on file Legal Sex Female 2:41 AM NATURAL SCIENCE MANAGER Gender Identity Not on file Sexual [...] NECK V03.82 NEED FOR VACCINE PNEUMOCOCCUS V58.69 JAIL USE OF OTHER MEDICATION(S) V70.0 ROUTINE GENERAL [...] on filedocumented in this encounter Care Teams Carpenter'S Assistant Relationship Specialty Start Date End Date Raffaele Kaiser MD NO ADDRESS ON FILE PCP - General 05/25/00 documented as of this encounter
--- OUTSIDE RECORDS SUMMARY | 2024-10-24 21:09 | XMS_ITS | Encounter Summary ---
Author Organization [facility] Address [address] [place] [address] Care Team Providers Care Boat Carpenter Mechanic Name Role Phone Raffaele Kaiser MD Primary [facility] Encounter Details Date Type Department Care Team (Late st Contact Info) Description 09/25/2003 Outpatient Historical [facility] Support Serv. (Adt Cardiology-[facility]) [address] [place] [address] Kendell Tate MD NO ADDRESS ON FILE Social History Tobacco Use Types Packs/Day Years Used Date Smoking Tobacco: Never Assessed Comments Unknown Sex and Gender Information Value Date Recorded Sex Assigned at Not on file Legal Sex Female 2:41 AM HEMATOLOGY NURSE Gender Identity Not on file Sexual Orientation Not on file documented as of this encounter Plan of Treatment Not on file documented as of this encounter Visit Diagnoses Not on filedocumented in this encounter Care Teams Boat Carpenter Mechanic Relationship Specialty Start Date End Date Raffaele Kaiser MD NO ADDRESS ON FILE PCP - General 05/25/00 documented as of this encounter
--- OUTSIDE RECORDS SUMMARY | 2024-10-24 21:09 | XMS_ITS | Encounter Summary ---
Author Organization [facility] Address [address] [place] [address] Care Team Providers Care Bowling Ball Assembler Name Role Phone Raffaele Kaiser MD Primary [facility] Encounter Details Date Type Department Care Team (Late st Contact Info) Description 11/18/2004 Outpatient Historical [facility] Internal Medicine [address] [place] [address] Raffaele Kaiser MD NO ADDRESS ON FILE Social History Tobacco Use Types Packs/Day Years Used Date Smoking Tobacco: Never Assessed Comments Unknown Sex and Gender Information Value Date Recorded Sex Assigned at Not on file Legal Sex Female 2:41 AM RODEO RIDER Gender Identity Not on file Sexual Orientation Not on file documented as of this encounter Plan of Treatment Not on file documented as of this encounter Visit Diagnoses Not on filedocumented in this encounter Care Teams Bowling Ball Assembler Relationship Specialty Start Date End Date Raffaele Kaiser MD NO ADDRESS ON FILE PCP - General 05/25/00 documented as of this encounter
--- OUTSIDE RECORDS SUMMARY | 2024-10-24 21:09 | XMS_ITS | Encounter Summary ---
Author Organization [facility] Address [address] [place] [address] Care Team Providers Care African History Professor Name Role Phone Raffaele Kaiser MD Primary Care Provider U verna Encounter Details Date Type Department Care Team (Latest Contact Info) Description 11/18/2004 Outpatient [facility] for [employer] [address] [place] [address] & [place] [address] Raffaele Kaiser MD NO ADDRESS ON FILE AFTERCARE BUYER INTERNSHIP USE MEDICATN (Primary Dx) Social History Tobacco Use Types Packs/Day Years Used Date Smoking Tobacco: Never Assessed Comments Unknown Sex and Gender Information Value Date Recorded Sex Assigned at Not on file Legal Sex Female 2:41 AM NIGHT CLUB MANAGER Gender Identity Not on file Sexual [...] ORDERABLES Final Resul t Performing Organization Address [facility] Phone Number INTERFACE SYSTEM Refer to clinic/hospital [...] HEMATOLOGY ORDERABLES Final Result Performing Organization Address [facility] Phone Number INTERFACE SYSTEM Refer to clinic/hospital [...] HEMATOLOGY ORDERABLES Final Result Performing Organization Address [facility] Co de Phone Number INTERFACE SYSTEM Refer to clinic/hospital department * CK (11/18/2004 12:45 PM CDT) CK 100 10 - 145 U/L INTERFACE SYSTEM 11/18/2004 12:4 5 PM CDT us Historical Provider CHEMISTRY ORDERABLES Final R esult Performing Organization Address [facility] Co de Phone Number INTERFACE SYSTEM [...] Primary documented in this encounter Care Teams African History Professor Relationship Specialty Start Date End Date Raffaele Kaiser MD NO ADDRESS ON FILE PCP - General 05/25/00 documented as of this encounter
--- OUTSIDE RECORDS SUMMARY | 2024-10-24 21:09 | XMS_ITS | Encounter Summary ---
Author Organization [facility] Address [address] [place] [address] Care Team Providers Care Exhibit Technician Name Role Phone Raffaele Kaiser MD Primary Care Provider U verna Encounter Details Date Type Department Care Team (Late st Contact Info) Description 08/22/2002 Outpatient Historical [facility] Internal Medicine [address] [place] [address] Stacey Arboleda MD [address] [place] [address] Social History Tobacco Use Types Packs/Day Years Used Date Smoking Tobacco: Never Assessed Comments Unknown Sex and Gender Information Value Date Recorded Sex Assigned at Not on file Legal Sex Female 2:41 AM LANDSCAPE NURSERYMAN Gender Identity Not on file Sexual Orientation Not on file documented as of this encounter Plan of Treatment Not on file documented as of this encounter Visit Diagnoses Not on filedocumented in this encounter Care Teams Exhibit Technician Relationship Specialty Start Date End Date Raffaele Kaiser MD NO ADDRESS ON FILE PCP - General 05/25/00 documented as of this encounter
--- OUTSIDE RECORDS SUMMARY | 2024-10-24 21:09 | XMS_ITS | Encounter Summary ---
Author Organization [facility] Address [address] [place] [address] Care Team Providers Care Asbestos Surveyor Name Role Phone Raffaele Kaiser MD Primary Care Provider U verna Encounter Details Date Type Department Care Team (Late st Contact Info) Description 05/27/2006 Outpatient Historical [facility] Internal Medicine [address] [place] [address] Raffaele Kaiser MD NO ADDRESS ON FILE Social History Tobacco Use Types Packs/Day Years Used Date Smoking Tobacco: Never Assessed Comments Unknown Sex and Gender Information Value Date Recorded Sex Assigned at Not on file Legal Sex Female 2:41 AM WOOD FLOOR LAYER Gender Identity Not on file Sexual Orientation [...] on filedocumented in this encounter Care Teams Asbestos Surveyor Relationship Specialty Start Date End Date Raffaele Kaiser MD NO ADDRESS ON FILE PCP - General 05/25/00 documented as of this encounter
--- OUTSIDE RECORDS SUMMARY | 2024-10-24 21:09 | XMS_ITS | Encounter Summary ---
Author Organization [facility] Address [address] [place] [address] Care Team Providers Care Bus Attendant Name Role Phone Raffaele Kaiser MD Primary Care Provider [facility] Encounter Details Date Type Department Care Team (Late st Contact Info) Description 11/19/2005 Orders Only [facility] Internal Medicine [address] [place] [address] Raffaele Kaiser MD NO ADDRESS ON FILE Social History Tobacco Use Types Packs/Day Years Used Date Smoking Tobacco: Never Assessed Comments Unknown Sex and Gender Information Value Date Recorded Sex Assigned at Not on file Legal Sex Female 2:41 AM MANAGER MARITIME Gender Identity Not on file Sexual Orientation [...] 784.49 SYMPTOMS INVOLVING HEAD AND NECK V58.69 FDC USE OF OTHER MEDICATION(S) CURRENT MEDICATION LIST: [...] time. STATUS: Improved. LAB ORDERS: Order number: [id number] Test Ordered: EKG WITH INTERPRETATION AND REPORT [id number] V03.82-NEED FOR VACCINE PNEUMOCOCCUS ASSESSMENT: The patient needs a pneumovax and satisfies the criteria. LAB ORDERS: Order number: [id number] Test Ordered: INJ-PNEUMOVAX 44605 V76.41-SCREEN FOR CA OF RECTUM LAB ORDERS: Order number: [id number] Test Ordered: HEMOCCULT [id number] HEALTH MAINTENANCE: LAST BREAST EXAM DATE: wnl. LAST PAP DATE: wnl. PAP SMEAR PROVIDER: Dr Bejarano. LAST TD: 2003 ADVANCED DIRECTIVES DISCUSSED: yes. LAST DATE COLONOSCOPY: neg. LAST DATE FOBT: neg. LAST BONE DENSITY DATE: wnl/sales promotion coordinator. LAST FLU VACCINE:2005 LAST FLU VACCINE:2004 TIME [...] directives and a health care power of workers compensation defense attorney, routine screening interval for mammogram as recommended by the [place] [employer] and ACOG, diagnosis, treatment, and prevention of osteoporosis. RETURN VISIT : Patient instructed to return in 6 months. Electronically Signed by: Raffaele Kaiser MD on November documented in this encounter Plan of Treatment Not on file documented as of this encounter Visit Diagnoses Not on filedocumented in this encounter Care Teams Bus Attendant Relationship Specialty Start Date End Date Raffaele Kaiser MD NO ADDRESS ON FILE PCP - General 05/25/00 documented as of this encounter
--- OUTSIDE RECORDS SUMMARY | 2024-10-24 21:09 | XMS_ITS | Encounter Summary ---
Author Organization [facility] Address [address] [place] [address] Care Team Providers Care Printer Small Print Shop Name Role Phone Raffaele Kaiser MD Primary [...] on file Legal Sex Female 2:41 AM LADIES' LOCKER ROOM ATTENDANT Gender Identity Not on file Sexual Orientation Not on file documented as of this encounter Plan of Treatment Not on file documented as of this encounter Visit Diagnoses Diagnosis Abdominal pain, other specified site- Primary documented in this encounter Care Teams Printer Small Print Shop Relationship Specialty Start Date End Date Raffaele Kaiser MD NO ADDRESS ON FILE PCP - General 05/25/00 documented as of this encounter
--- OUTSIDE RECORDS SUMMARY | 2024-10-24 21:09 | XMS_ITS | Encounter Summary ---
Author Organization [facility] Address [address] [place] [address] Care Team Providers Care Microbiology Lab Manager Name Role Phone Raffaele Kaiser MD Primary Care Provider [facility] Encounter Details Date Type Department Care Team (Late st Contact Info) Description 03/26/2005 Outpatient Historical [facility] Internal Medicine [address] [place] [address] Raffaele Kaiser MD NO ADDRESS ON FILE Social History Tobacco Use Types Packs/Day Years Used Date Smoking Tobacco: Never Assessed Comments Unknown Sex and Gender Information Value Date Recorded Sex Assigned at Not on file Legal Sex Female 2:41 AM OVEN DUMPER Gender Identity Not on file Sexual Orientation [...] on filedocumented in this encounter Care Teams Microbiology Lab Manager Relationship Specialty Start Date End Date Raffaele Kaiser MD NO ADDRESS ON FILE PCP - General 05/25/00 documented as of this encounter
--- OUTSIDE RECORDS SUMMARY | 2024-10-24 21:09 | XMS_ITS | Encounter Summary ---
Author Organization [facility] Address [address] [place] [address] Care Team Providers Care Content Creation Manager Name Role Phone Raffaele Kaiser MD Primary Care Provider [facility] Encounter Details Date Type Department Care Team (Latest Contact Info) Description 03/29/2003 Outpatient [facility] [place] [address] & [place] [address] Raffaele Kaiser MD NO ADDRESS ON FILE PURE HYPERCHOLESTEROLEM (Primary Dx) Social History Tobacco Use Types Packs/Day Years Used Date Smoking Tobacco: Never Assessed Comments Unknown Sex and Gender Information Value Date Recorded Sex Assigned at Not on file Legal Sex Female 2:41 AM CHIN STRAP CUTTER Gender Identity Not on file Sexual Orientation Not on file documented as of this encounter Plan of Treatment Not on file documented as of this encounter Visit Diagnoses Diagnosis Pure hypercholesterolemia- Primary documented in this encounter Care Teams Content Creation Manager Relationship Specialty Start Date End Date Raffaele Kaiser MD NO ADDRESS ON FILE PCP - General 05/25/00 documented as of this encounter
--- OUTSIDE RECORDS SUMMARY | 2024-10-24 21:09 | XMS_ITS | Referral Summary ---
Author Organization [facility] [address] Address [address] [place] [address] Phone Care Team Providers Care Fiber Design Engineer Name Role Phone Raffaele Hogan DO Primary Care Provider +1- [phone] Allergies Active Allergy Reactions Criticality Noted Date [...] on file Legal Sex Female 10:18 AM AUTOMATIC DEVELOPER Gender Identity Not on file Sexual Orientation [...] Most Recently Relevant to [place] [address] [place] [address] MEDICARE SOLUTIONS MEDICARE SOLUTIONS Care Teams Fiber Design Engineer Relationship Specialty Start Date End Date Raffaele Hogan DO PCP - General 06/09/17
--- OUTSIDE RECORDS SUMMARY | 2024-10-24 21:09 | XMS_ITS | Encounter Summary ---
Author Organization [facility] Address [address] [place] [address] Care Team Providers Care Electroencephalogram Technologist Name Role Phone Raffaele Kaiser MD Primary [facility] Encounter Details Date Type Department Care Team (Late st Contact Info) Description 03/29/2003 Outpatient Historical [facility] Internal Medicine 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
--- OUTSIDE RECORDS SUMMARY | 2024-10-24 21:09 | XMS_ITS | Encounter Summary ---
Author Organization [facility] Address [address] [facility] [address] 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
--- OUTSIDE RECORDS SUMMARY | 2024-10-24 21:09 | XMS_ITS | Encounter Summary ---
Author Organization [facility] Address 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
--- OUTSIDE RECORDS SUMMARY | 2024-10-24 21:09 | XMS_ITS | Clinical Summary ---
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
--- OUTSIDE RECORDS SUMMARY | 2024-10-24 21:09 | XMS_ITS | Encounter Summary ---
Author Organization [facility] Address [address] [place] [address] Care Team Providers Care Academic Manager Name Role Phone Raffaele Kaiser MD Primary [facility] Encounter Details Date Type Department Care Team (Late st Contact Info) Description 07/05/2007 Outpatient Historical [facility] Internal Medicine 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 Gender Identity Not on file Sexual Orientation Not on file documented as of this encounter Last Filed Vital Signs Vital Sign Reading Time Taken Comments Blood Pressure 110/75 07/05/2007 2:15 PM SOAKER Pulse 105 07/05/2007 2:15 PM SOAKER Temperature 36.9 C (98.5 F) 07/05/2007 2:15 PM SOAKER Respiratory Rate - - Oxygen Saturation - - Inhaled Oxygen Concentration - - Weight - - Height - - Body Mass Index - - documented in this encounter Plan of Treatment Not on file documented as of this encounter Visit Diagnoses Not on filedocumented in this encounter Care Teams Academic Manager Relationship Specialty Start Date End Date Raffaele Kaiser MD NO ADDRESS ON FILE PCP - General 05/25/00 documented as of this encounter
--- OUTSIDE RECORDS SUMMARY | 2024-10-24 21:09 | XMS_ITS | Encounter Summary ---
Author Organization [facility] Address 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
--- OUTSIDE RECORDS SUMMARY | 2024-10-24 21:09 | XMS_ITS | Encounter Summary ---
Author Organization [facility] Address [address] [place] [address] Care Team Providers Care Etl Lead Name Role Phone Raffaele Kaiser MD [facility] Encounter Details Date Type Department Care Team (Late st Contact Info) Description 04/03/2004 Outpatient Historical [facility] Internal Medicine 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
--- OUTSIDE RECORDS SUMMARY | 2024-10-24 21:09 | XMS_ITS | Continuity of Care Document ---
Author Organization [employer] [facility] Address [address] [facility] [address] [place] [address] Phone Care Team Providers Care Full Stack Developer Name Role Phone Karan OD, Sherrell Unavailable [...] Diagnoses Date Provider Providers Copied on Encounter [facility], [address], [place], [place], [address], [place] tel:[phone] SEC [place] No Information 5 Karan OD Sherrell. [address], [address], [place], [place], [address], [place]. tel:[phone] Office/outpa tient Visit, Est [facility], [address] [address], [place], [place], [address], tel:[phone] SEC [place] Professional Complete Exam (chief complaint) Primary open-angle glaucoma, right eye, moderate stagePrimary open-angle glaucoma, left eye, mild stage Oct-0 -202 4 Karan OD Sherrell. [address] [place] [address] [address], [address], [place], [place], [address], [place]. tel:[phone] Referring Provider: Inder Ghosh MD, [address] [facility] [address], [place], [address] . tel:[phone] Office/outpa tient Visit, [facility], [address] [place] [address] [address], [place], [place], [address], [place] tel:[phone] SEC Stephan MCCARTHY Professional Complete Exam (chief complaint) Primary open angle glaucoma (POAG) of both eyes, moderate stage Mar-1 - 4 Karan OD Shererll. [address] [place] [address] [address], [address], [place], [place], [address], [place]. tel:[phone] Referring Provider: Inder Ghosh MD, [address] [facility] [address], [place], [address] . tel:[phone] [facility], [address], [place], [place], [address], [place] tel:[phone] SEC Stephan MCCARTHY Professional No Information Nov-0 - 3 Mcdonald Irvin. [address] [facility] [address], [place], [place], [address], [place]. tel:[phone] Office/outpa tient Visit, [facility], [address], [place], [place], [address], [place] tel:[phone] SEC Stephan MCCARTHY Professional glaucoma, pressure check (chief complaint) Primary open angle glaucoma (POAG) of both eyes, moderate stage Sep-1 -202 3 Karan OD Sherrell. [address] [place] [address] [address], [address], [place], [place], [address], [place]. tel:[phone] Referring Provider: Inder Ghosh MD, [address] [facility] [address], [place], [address] . tel:[phone] [facility], [address] [place] [address] [address], [place], [place], [address], [place] tel:[phone] SEC Stephan MCCARTHY Professional 6 month Complete (chief complaint) Primary open angle glaucoma (POAG) of both eyes, moderate stagePseudop hakia of both eyes 3 Harry Bryan. [address], [address], [place], [place], [address], [place]. tel:[phone] Referring Provider: Inder Ghosh MD, [address] [place] [address] Suite [facility], [place], [address] . tel:[phone] Office/outpa tient Visit, [facility], [address] [place] [address] [address], [place], [place], [address], [place] tel:[phone] SEC Stephan MCCARTHY Professional 6 month IOP check w/VF (chief complaint) Primary open angle glaucoma (POAG) of both eyes, moderate stagePseudop hakia of both eyes 2 Harry Bryan. [address], [address], [place], [place], [address], [place]. tel:[phone] Referring Provider: Haresh Palomo MD P, [address] [place] [address], [place], [address] . tel:[phone] Office/outpa tient Visit, [facility], [address] [place] [address] [address], [place], [place], [address], [place] tel:[phone] SEC Stephan MCCARTHY Professional glaucoma, pressure check (chief complaint) Primary open angle glaucoma (POAG) of both eyes, moderate stagePresenc e of intraocular lensUnspecif ied macular degeneration 2 Harry Bryan. [address], [address], [place], [place], [address], [place]. tel:[phone] Referring Provider: Inder Ghosh MD, [address] [place] [address] [address], [place], [address] . tel:[phone] [facility], [address], [place], [place], [address], [place] tel:[phone] SEC Stephan MCCARTHY Professional 6 month Complete (chief complaint) Primary open-angle glaucoma, right eye, severe stagePrimary open-angle glaucoma, left eye, mild stageMyopic macular degeneration of both eyesPseudoph justine of both eyesHistory of retinal detachment 2 Harry Bryan. [address], [address], [place], [place], [address], [place]. tel:[phone] Referring Provider: Inder Ghosh MD, [address] [facility] [address], [place], [address] . tel:[phone] Office/outpa tient Visit, Est [facility], [address], [place], [place], [address], [place] tel:[phone] SEC Stephan MCCARTHY Professional 6 month IOP check w/VF (chief complaint) Primary open-angle glaucoma, bilateral, mild stagePseudop hakia of both eyes 1 Harry Bryan. [address], [address], [place], [place], [address], [place]. tel:[phone] Referring Provider: Inder Ghosh MD, [address] [employer] [address], [place], [address] . tel:[phone] [facility], [address], [place], [place], [address], [place] [phone] SEC Stephan MCCARTHY Professional 6 month Complete (chief complaint) Primary open-angle glaucoma, bilateral, mild stagePseudop hakia of both eyesPunctate keratitis, bilateralMyo pic macular degeneration of both eyes 0 Harry Bryan. [address], [address], [place], [place], [address], [place]. tel:[phone] Referring Provider: Inder Ghosh MD, [address] [facility] [address], [place], [address] . tel:[phone] Office/outpa tient Visit, [facility], [address], [place], [place], [address], [place] tel:[phone] SEC Stephan MCCARTHY Professional 6 mo IOP check (chief complaint) Primary open-angle glaucoma, bilateral, mild stage Manny-1 2-202 0 Harry Bryan. [address], [address], [place], [place], [address], [place]. tel:[phone] Referring Provider: Inder Ghosh MD, [address] [facility] [address], [place], [address] . tel:[phone] [facility], [address] [place] [address] [address], [place], [place], [address], [place] tel:[phone] SEC Stephan MCCARTHY Professional 6 month Complete w/VF (chief complaint) Primary open-angle glaucoma, bilateral, mild stagePseudop hakia of both eyesPunctate keratitis, bilateralOth er secondary cataract, right eyeChorioret inal scar of both eyes after surgery for detachmentVi treous degeneration , bilateral Oct-0 4-201 9 Harry Bryan. [address], [place], [address], [place]. tel:[phone] Referring Provider: Inder Ghosh MD, [address] [facility] [address], [place], [address] . tel:[phone] Office/outpa tient Visit, [facility], [address], [place], [place], [address], [place] tel:[phone] SEC Stephan MCCARTHY Professional glaucoma, pressure check (chief complaint) Primary open-angle glaucoma, bilateral, mild stage Apr-0 2-201 9 Harry Bryan. [address], [address], [place], [place], [address], [place]. tel:[phone] Referring Provider: Inder Ghosh MD, [address] [facility] [address], [place], [address] . tel:[phone] [facility], [address], [place], [place], [address], [place] [phone] SEC Stephan MCCARTHY Professional 1 week IOP check s/p SLT OD (chief complaint) Encounter for examination following surgery 9 Harry Bryan. [address], [address], [place], [place], [address], [place]. tel:[phone] Referring Provider: Inder Ghosh MD, [address], [place], [address] . tel:[phone] [facility], [address], [place], [place], [address], [place] [phone] SEC Stephan MCCARTHY Professional SLT (chief complaint) Primary open-angle glaucoma, bilateral, mild stage 9 Harry Bryan. [address], [address], [place], [place], [address], [place]. tel:[phone] Referring Provider: Inder Ghosh MD, [address] [facility] [address], [place], [address] . tel:[phone] Office/outpa tient Visit, Est [facility], [address], [place], [place], [address], [place] [phone] SEC [place] Professional IOP check (chief complaint) Primary open-angle glaucoma, bilateral, mild stage 9 Harry Bryan. [address], [address], [place], [place], [address], [place]. tel:[phone] [facility], [address], [place], [place], [address], [place] [phone] KARINA MCCARTHY Professional 6 month Complete (chief complaint) Pseudophakia of both eyesPrimary open-angle glaucoma, bilateral, mild stageHistory of retinal detachmentPV D (posterior vitreous detachment), left eyeSuperfici al punctate keratitis of right eyeNexdtve age-related mclr degn, bilateral, intermed dry stage Oct-0 8 Harry Bryan. [address] [place] [address], [address], [place]. tel:[phone] Referring Provider: Inder Ghosh MD, [address], [address] . tel:[phone] Office/outpa tient Visit, [facility], [address] [place] [address] [address], [place], [place], [address], [place] tel:[phone] KARINA MCCARTHY Professional 6 mo IOP check (chief complaint) No Information 8 Juan C Molina. [address] [place], [address], [place]. tel:[phone] Referring Provider: Inder Ghosh MD, [address], [address] . tel:[phone] Office/outpa tient Visit, [facility], [address] [place] [address] [address], [place], [place], [address], [place] tel:[phone] SEC Stephan MCCARTHY Professional glaucoma, pressure check (chief complaint) No Information 7 Juan C Molina. [address] [place], [address], [place]. tel:[phone] Referring Provider: Inder Ghosh MD, [address], [address] . tel:[phone] Office/outpa tient Visit, [facility], [address] [place] [address] [address], [place], [place], [address], [place] tel:[phone] KARINA MCCARTHY Professional IOP check (chief complaint) No Information 5-201 7 Wanksamantha Hayes. [address], [address] [place], [place], [address], [place]. tel:[phone] Referring Provider: Inder Ghosh MD, [address] [facility] [address], [place], [address] . tel:[phone] [facility], [address], [place], [place], [address], [place] [phone] SEC Stephan MCCARTHY Professional No Information 2-201 7 Wankum Freddy. [address], [facility] [place], [address], [place]. tel:[phone] Office/outpa tient Visit, [facility], [address], [place], [place], [address], [place] [phone] SEC Stephan MCCARTHY Professional Glaucoma, pressure check (chief complaint) No Information 0-201 7 Wanksamantha Hayes. [address], [facility] [place], [address], [place]. tel:[phone] Office/outpa tient Visit, [facility], [address], [place], [place], [address], [place] [phone] SEC Stephan MCCARTHY Professional Work in Emergency (chief complaint) No Information 6-201 6 Wankum Freddy. [address], [address] [place], [place], [address], [place]. tel:[phone] Referring Provider: Inder Ghosh MD, [address] [facility] [address], [place], [address] . tel:[phone] [facility], [address], [place], [place], [address], [place] tel:[phone] SEC Stephan MCCARTHY Professional Difficulty reading (chief complaint) No Information 6 Wankum Freddy. [address] [employer], [address], [place], [place], [address], [place]. tel:[phone] Referring Provider: Inder Ghosh MD, [address] [facility] [address], [place], [address] . tel:[phone] [facility] EntertainmentBaptist Memorial HospitalVox Mobile [facility] HospitalRange [facility], [address], [place], [place], [address], [place] tel:[phone] SEC [place] SHARI Professional Difficulty reading (chief complaint) No Information 6 Wankum Freddy. [address], [address], [place], [place], [address], [place]. tel:[phone] Referring Provider: Inder Ghosh MD, [address] [facility] [address], [place], [address] . tel:[phone] [facility], [address], [place], [place], [address], [place] tel:[phone] SEC Stephan MCCARTHY Professional F/u exam, postop (chief complaint) No Information 5 Wankum Freddy. [address], [address], [place], [place], [address], [place]. tel:[phone] Referring Provider: Inder Ghosh MD, [address] [facility] [address], [place], [address] . tel:[phone] [facility] EntertainmentBaptist Memorial HospitalV[facility] HospitalRange [facility], [address], [place], [place], [address], [place] tel:[phone] SEC Stephan MCCARTHY Professional YAG PC (chief complaint) No Information 5 Wankum Freddy. [address], [address], [place], [place], [address], [place]. tel:[phone] Referring Provider: Inder Ghosh MD, [address] [facility] [address], [place], [address] . tel:[phone] [facility], [address], [place], [place], [address], [place] tel:[phone] SEC [place] Professional YAG (chief complaint) No Information 5 Wankum Freddy. [address] [facility], [address], [place], [place], [address], [place]. tel:[phone] Referring Provider: Inder Ghosh MD, [address] [facility] [address], [place], [address] . tel:[phone] [facility] Eye [facility], [address], [place], [place], [address], [place] tel:[phone] SEC [place] Professional complete (chief complaint) No Information 5 Wankum Freddy. [address] [facility], [address], [place], [place], [address], [place]. tel:[phone] Referring Provider: Inder Ghosh MD, [address] [facility] [address], [place], [address] . tel:[phone] [facility] Eye [facility], [address], [place], [place], [address], [place] tel:[phone] SEC [place] Professional WIE (chief complaint) No Information 3 Wankum Freddy. [address], [address], [place], [place], [address], [place]. tel:[phone] Referring Provider: Inder Ghosh MD, [address] [facility] [address], [place], [address] . tel:[phone] [facility] Eye [facility], [address], [place], [place], [address], [place] tel:[phone] SEC [place] Professional eyes doing well, without complaint. (chief complaint) No Information 3-201 3 Wankum Freddy. [address], [address], [place], [place], [address], [place]. tel:[phone] Referring Provider: Inder Ghosh MD, [address], [place], [address] . tel:[phone] [facility] Eye [facility], [address], [place], [place], [address], [place] tel:[phone] SEC Stephan MCCARTHY Professional blurry vision (chief complaint) No Information - 2 Wankum Freddy. [address], [address], [place], [place], [address], [place]. tel:[phone] Referring Provider: Inder Ghosh MD, [address], [place], [address] . tel:[phone] [facility], [address], [place], [place], [address], [place] tel:[phone] SEC Stephan SHARI Professional 2 week post op (chief complaint) No Information Jul-1 4-201 2 Wankum Freddy. [address], [address], [place], [place], [address], [place]. tel:[phone] Referring Provider: Inder Ghosh MD, [address], [place], [address] . tel:[phone] [facility] EntertainmentHigh[facility], [address], [place], [place], [address], [place] tel:[phone] SEC [place] SHARI Professional 1 week post op (chief complaint) No Information Dec-0 7-201 2 Wankum Freddy. [address], [address], [place], [place], [address], [place]. tel:[phone] Referring Provider: Inder Ghosh MD, [address], [place], [address] . tel:[phone] [employer] [facility], [address], [place], [place], [address], [place] tel:[phone] SEC [place] Professional 1 day post op (chief complaint) No Information Nov-3 0-201 2 Wankum Freddy. [address] [facility], [address], [place], [place], [address], [place]. tel:[phone] Referring Provider: Inder Ghosh MD, [address], [place], [address] . tel:[phone] [employer] [facility] Hospital[facility], [address], [place], [place], [address], [place] tel:[phone] [facility] No Information Nov-2 9201 2 Claire Savage. [address], [address], [place], [place], [address], [place]. tel:[phone] Referring Provider: Inder Ghosh MD, [address], [place], [address] . tel:[phone] [employer] [facility], [address], [place], [place], [address], [place] tel:[phone] SEC Jenniferbreann Carrillo No Information Nov-2 8201 2 Realitos Savage. [address], [address], [place], [place], [address], [place]. tel:[phone] Referring Provider: Inder Ghosh MD, [address], [place], [address] . tel:[phone] [employer] [facility] Hospital[facility], [address], [place], [place], [address], [place] tel:[phone] SEC [place] Professional 2 week post op (chief complaint) No Information Nov-2 0-201 2 Wankum Freddy. [address] [facility], [address], [place], [place], [address], [place]. tel:[phone] Referring Provider: Inder Ghosh MD, [address] [facility] [address], [place], [address] . tel:[phone] [facility], [address], [place], [place], [address], [place] tel:[phone] SEC [place] Professional a comprehensive exam (chief complaint) No Information Nov-0 9-201 2 Jose Ramonksamantha Hayes. [address] [facility], [address], [place], [place], [address], [place]. tel:[phone] Referring Provider: Inder Ghosh MD, [address] [facility] [address], [place], [address] . tel:[phone] [facility], [address], [place], [place], [address], [place] tel:[phone] SEC [place] Professional 1 day post op (chief complaint) No Information Nov-0 2-201 2 Kadeem Hayes. [address] [facility], [address], [place], [place], [address], [place]. tel:[phone] Referring Provider: Inder Ghosh MD, [address] [facility] [address], [place], [address] . tel:[phone] [facility] Eye [facility], [address], [place], [place], [address], [place] tel:[phone] [facility] No Information Nov-0 1-201 2 Claire Wan. [address], [address], [place], [place], [address], [place]. tel:[phone] Referring Provider: Inder Ghosh MD, [address] [facility] [address], [place], [address] . tel:[phone] Office/outpa tient Visit, [facility] Eye [facility], [address], [place], [place], [address], [place] tel:[phone] SEC Stephan SHARI Professional burning (chief complaint) No Information May- 2 Claire Wan. [address] [facility] [address], [address], [place], [place], [address], [place]. tel:[phone] Referring Provider: Inder Ghosh MD, [address] [facility] [address], [place], [address] . tel:[phone] [facility] Eye [facility], [address], [place], [place], [address], [place] tel:[phone] SEC [place] Professional No Information 2 Kadeem Hayes. [address] [facility], [address], [place], [place], [address], [place]. tel:[phone] Family History Family Member Type Diagnosis Age At Onset Problem (finding) Mother Problem (finding) hypertension Father Problem (finding) hypertension Payers Payer name Insurance type Covered republican ID Authoriza rudy(s) [facility] Mdcr Adv CI [id number] Social History Type Description Quantity Date Captured [...] hard for her to get Com[facility] from [facility]. 6 month Complete The 81 year old [...] and left eye. 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 Palomo as scheduled Related to AMD (age-related macular degeneration), bilateral Impression/Plan - Ps eudophakic OU, doing well. Monitor. Related to Pseudophakia of both eyes Follow up - RTC in 6 months for IOP check and OCT ONH Primary open-angle g laucoma, bilateral, mild stage [...] mg QD x 3 weeks. ERx to [facility]. Patient aware styes can come to [...]
--- OUTSIDE RECORDS SUMMARY | 2024-10-24 21:09 | XMS_ITS | Encounter Summary ---
Author Organization [facility] Address [address] Attn: Epic Prelude ADT MARIAH SANDOVAL [id number] Care Team Providers Care Hogshead Stock Clerk Name Role Phone Raffaele Kaiser MD [...] on file Legal Sex Female 2:41 AM [employer] Gender Identity Not on file Sexual Orientation Not on file documented as of this encounter Plan of Treatment Not on file documented as of this encounter Visit Diagnoses Not on filedocumented in this encounter Care Teams Hogshead Stock Clerk Relationship Specialty Start Date End Date Raffaele Kaiser MD NO ADDRESS ON FILE PCP - General 05/25/00 documented as of this encounter
--- OUTSIDE RECORDS SUMMARY | 2024-10-24 21:09 | XMS_ITS | Encounter Summary ---
Author Organization [facility] Address [address] [place] [address] Care Team Providers Care Couturiere Name Role Phone Raffaele Kaiser MD [facility] Encounter Details Date Type Department Care Team (Late st Contact Info) Description 12/13/2003 Outpatient Historical [facility] Internal Medicine 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
--- OUTSIDE RECORDS SUMMARY | 2024-10-24 21:09 | XMS_ITS | Encounter Summary ---
Author Organization [facility] Address [address] [place] [address] Care Team Providers Care Dissolver Operator Name Role Phone Raffaele Kaiser MD Primary Care Provider [facility] Encounter Details Date Type Department Care Team (Late st Contact Info) Description 01/08/2005 Outpatient Historical [facility] Internal Medicine 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
--- OUTSIDE RECORDS SUMMARY | 2024-10-24 21:09 | XMS_ITS | Encounter Summary ---
Author Organization [facility] Address [address] [place] [address] Care Team Providers Care Dictaphone Typist Name Role Phone Raffaele Kaiser MD Primary Care [facility] Encounter Details Date Type Department Care Team (Late st Contact Info) Description 07/17/2004 Outpatient Historical [facility] Internal Medicine 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
--- OUTSIDE RECORDS SUMMARY | 2024-10-24 21:09 | XMS_ITS | Encounter Summary ---
Author Organization [facility] Address [address] [place] [address] Care Team Providers Care Heat Treater Head Name Role Phone Raffaele Kaiser MD Primary Care Provider [facility] Encounter Details Date Type Department Care Team (Late st Contact Info) Description 11/23/2002 Outpatient Historical [facility] Internal Medicine 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
--- OUTSIDE RECORDS SUMMARY | 2024-10-24 21:09 | XMS_ITS | Encounter Summary ---
Author Organization [facility] Address [address] [place] [address] Care Team Providers Care Machine Specialist Name Role Phone Raffaele Kaiser MD Primary [facility] Encounter Details Date Type Department Care Team (Late st Contact Info) Description 01/08/2002 Outpatient Historical [facility] ([facility] Cardiology[facility]) [address] 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
--- OUTSIDE RECORDS SUMMARY | 2024-10-24 21:09 | XMS_ITS | Encounter Summary ---
Author Organization [facility] Address [address] [place] [address] Care Team Providers Care Ship/Rec/Doc Control Name Role Phone Raffaele Kaiser MD Primary Care Provider ver[facility] Encounter Details Date Type Department Care Team (Latest Contact Info) Description 05/25/2000 Outpatient Historical [facility] Raffaele Blount MD NO ADDRESS ON FILE Other screening mammogram (Primary Dx) Social History Tobacco Use Types Packs/Day Years Used Date Smoking Tobacco: Never Assessed Comments Unknown Sex and Gender Information Value Date Recorded Sex Assigned at Not on file Legal Sex Female 2:41 AM CARDIAC RN Gender Identity Not on file Sexual Orientation Not on file documented as of this encounter Plan of Treatment Not on file documented as of this encounter Visit Diagnoses Diagnosis Other screening mammogram- Primary documented in this encounter Care Teams Ship/Rec/Doc Control Relationship Specialty Start Date End Date Raffaele Kaiser MD NO ADDRESS ON FILE PCP - General 05/25/00 documented as of this encounter
--- OUTSIDE RECORDS SUMMARY | 2024-10-24 21:09 | XMS_ITS | Encounter Summary ---
Author Organization [facility] Address [address] [place] [address] Care Team Providers Care Lead Systems Analyst Name Role Phone Raffaele Kaiser MD Primary [facility] Encounter Details Date Type Department Care Team (Late st Contact Info) Description 06/28/2003 Outpatient Historical [facility] Internal Medicine 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
--- OUTSIDE RECORDS SUMMARY | 2024-10-24 21:09 | XMS_ITS | Encounter Summary ---
Author Organization [facility] Address 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
--- OUTSIDE RECORDS SUMMARY | 2024-10-24 21:09 | XMS_ITS | Encounter Summary ---
Author Organization [facility] Address [address] [place] [address] Care Team Providers Care Motion Picture Photographer Name Role Phone Raffaele Kaiser MD Primary Care Provider [facility] Encounter Details Date Type Department Care Team (Late st Contact Info) Description 11/19/2005 Outpatient Historical [facility] Internal Medicine 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
--- OUTSIDE RECORDS SUMMARY | 2024-10-24 21:09 | XMS_ITS | Encounter Summary ---
Author Organization [facility] Address [address] [place] [address] Care Team Providers Care Pump Attendant Name Role Phone Raffaele Kaiser MD Primary Care Provider U [facility] Encounter Details Date Type Department Care Team (Latest Contact Info) Description 07/17/2004 Outpatient [facility] [employer] [address] [place] [address] Raffaele Kaiser MD NO ADDRESS ON FILE PURE HYPERCHOLESTEROLEM (Primary Dx) Social History Tobacco Use Types Packs/Day Years Used Date Smoking Tobacco: Never Assessed Comments Unknown Sex and Gender Information Value Date Recorded Sex Assigned at Not on file Legal Sex Female 2:41 AM LPN HOME HEALTH Gender Identity Not on file Sexual Orientation Not on file documented as of this encounter Plan of Treatment Not on file documented as of this encounter Visit Diagnoses Diagnosis Pure hypercholesterolemia- Primary documented in this encounter Care Teams Pump Attendant Relationship Specialty Start Date End Date Raffaele Kaiser MD NO ADDRESS ON FILE PCP - General 05/25/00 documented as of this encounter
--- OUTSIDE RECORDS SUMMARY | 2024-10-24 21:09 | XMS_ITS | Encounter Summary ---
Author Organization [facility] Address 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
--- OUTSIDE RECORDS SUMMARY | 2024-10-24 21:09 | XMS_ITS | Encounter Summary ---
Author Organization [facility] Address [address] [place] [address] Care Team Providers Care Paraffin Plant Operator Name Role Phone Raffaele Kaiser MD Primary Care Provider [facility] Encounter Details Date Type Department Care Team (Late st Contact Info) Description 09/26/2003 Outpatient Historical [facility] Internal Medicine 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
--- OUTSIDE RECORDS SUMMARY | 2024-10-24 21:09 | XMS_ITS | Encounter Summary ---
Author Organization [facility] Address [address] [place] [address] Care Team Providers Care Occupational Medicine Specialist Name Role Phone Raffaele Kaiser MD Primary Care Provider [facility] Encounter Details Date Type Department Care Team (Late st Contact Info) Description 11/23/2002 Outpatient Historical [facility] Internal Medicine 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
--- OUTSIDE RECORDS SUMMARY | 2024-10-24 21:10 | XMS_ITS | Referral Summary ---
Author Organization [facility] [employer] Address [address] [place] [address] Care Team Providers Care Air Conditioning Technician Name Role Phone Raffaele Hogan DO Primary Care Provider [phone] Source Comments [facility] [employer],non-owned Affiliates and Associated Physician Practices is amultiple site organization consisting of ambulatory clinics and hospital sitesin [place], [place], [place] and [place]. This disclosure is being madepursuant to the Care Everywhere program and may not contain all information available regarding this patient. Last updated 18.[facility] [employer] Allergies Active Allergy Reactions Criticality Noted Date [...] of Treatment Not on file Care Teams Air Conditioning Technician Relationship Specialty Start Date End Date Raffaele Hogan DO PCP - General Internal Medicine 11/18/18
--- OUTSIDE RECORDS SUMMARY | 2024-10-24 21:10 | XMS_ITS | Encounter Summary ---
Author Organization [facility] Address [address] [place] [address] Care Team Providers Care Dye Blender Name Role Phone Raffaele Kaiser MD Primary [facility] Encounter Details Date Type Department Care Team (Late st Contact Info) Description 12/02/2006 Outpatient Historical [facility] Internal Medicine 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
--- OUTSIDE RECORDS SUMMARY | 2024-10-24 21:10 | XMS_ITS | Encounter Summary ---
Author Organization [facility] Address [address] [place] [address] Care Team Providers Care Clinical Exercise Specialist Name Role Phone Raffaele Kaiser MD [facility] Encounter Details Date Type Department Care Team (Late st Contact Info) Description 12/02/2006 Outpatient Historical [facility] Internal Medicine 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
--- OUTSIDE RECORDS SUMMARY | 2024-10-24 21:10 | XMS_ITS | Encounter Summary ---
Author Organization [facility] Address [address] [place] [address] Care Team Providers Care Bakery Helper Name Role Phone Raffaele Kaiser MD Primary Care Provider [facility] Encounter Details Date Type Department Care Team (Late st Contact Info) Description 05/31/2007 Orders Only [facility] Internal Medicine 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
--- OUTSIDE RECORDS SUMMARY | 2024-10-24 21:10 | XMS_ITS | Patient Health Summary ---
Author Organization [facility] Address [address] [place] [address] Care Team Providers Care Director Cardiovascular Name Role Phone Raffaele Hogan DO Primary Care Provider [phone] Note from [facility],non-owned Affiliates and Associated Physician Practices is amultiple site organization consisting of ambulatory clinics and hospital sitesin [place], [place], [place] and [place]. This disclosure is being madepursuant to the Care Everywhere program and may not contain all information available regarding this patient. Last updated 18.[facility] Allergies * Sulfa Drugs(GI Discomfort) Medications * [...] Abdominal pain, unspecified abdominal location Care Teams Director Cardiovascular Relationship Specialty Start Date End Date Raffaele Hogan DO PCP - General Internal Medicine 11/18/18
--- OUTSIDE RECORDS SUMMARY | 2024-10-24 21:10 | XMS_ITS | Encounter Summary ---
Author Organization [facility] Address [address] [place] [address] Care Team Providers Care Sugar Cane Farm Manager Name Role Phone Raffaele Kaiser MD [facility] Encounter Details Date Type Department Care Team (Late st Contact Info) Description 12/01/[address] [facility] Internal Medicine 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 WEIGHT: [id number] NURSE NAME: Maria Esther Lizarraga, A CHIEF [...] NECK V03.82 NEED FOR VACCINE PNEUMOCOCCUS V58.69 CAD PROGRAMMER USE OF OTHER MEDICATION(S) V70.0 ROUTINE GENERAL [...] on filedocumented in this encounter Care Teams Sugar Cane Farm Manager Relationship Specialty Start Date End Date Raffaele Kaiser MD NO ADDRESS ON FILE PCP - General 05/25/00 documented as of this encounter
--- OUTSIDE RECORDS SUMMARY | 2024-10-24 21:10 | XMS_ITS | Clinical Summary ---
Author Organization [facility] [employer] Address [address] [place] [place] [address] Care Team Providers Care Brain Picker Name Role Phone Raffaele Hogan DO Primary Care Provider [phone] Source Comments [facility] [employer],non-owned Affiliates and Associated Physician Practices is amultiple site organization consisting of ambulatory clinics and hospital sitesin [place], [place], [place] and [place]. This disclosure is being madepursuant to the Care Everywhere program and may not contain all information available regarding this patient. Last updated 18.[facility] [employer] Allergies Active Allergy Reactions Criticality Noted Date [...] age to complete this topic Care Teams Brain Picker Relationship Specialty Start Date End Date Raffaele Hogan DO PCP - General Internal Medicine 11/18/18
--- OUTSIDE RECORDS SUMMARY | 2024-10-24 21:10 | XMS_ITS | Encounter Summary ---
[facility] Organization [facility] Address [address] [place] [address] Care Team Providers Care Customer Acquisition Manager Name Role Phone Raffaele Kaiser MD Primary Care Provider U geraazeb Encounter Details Date Type Department Care Team (Late st Contact Info) Description 09/08/2007 Orders Only [facility] Internal Medicine [address] [place] [address] Raffaele Kaiser MD NO ADDRESS ON FILE Social History Tobacco Use Types Packs/Day Years Used Date Smoking Tobacco: Never Assessed Comments Unknown Sex and Gender Information Value Date Recorded Sex Assigned at Not on file Legal Sex Female 2:41 AM EXTRACTION SUPERVISOR Gender Identity Not on file Sexual Orientation Not on file documented as of this encounter Progress Notes * Raffaele Kaiser MD - 12/28/2007 8:11 PM CDT TIME:11:13 am PATIENT`S HOME PHONE: PATIENT`S WORK PHONE: PATIENT`S INSURANCE: [employer] WHO TOOK THE CALL: Blank Guzman L GENERAL INFORMATION PATIENT STATUS: Established Patient. ALTERNATIVE PHONE NUMBER: (K) WHO CALLED: Patient called. CURRENT ALLERGY LIST: [...] Called pharmacy at 09/08/07 at 01:07 pm. ../[facility] Electronically Signed by: Elena Benito on August documented in this encounter Plan of Treatment Not on file documented as of this encounter Visit Diagnoses Not on filedocumented in this encounter Care Teams Customer Acquisition Manager Relationship Specialty Start Date End Date Raffaele Kaiser MD NO ADDRESS ON FILE PCP - General 05/25/00 documented as of this encounter
--- OUTSIDE RECORDS SUMMARY | 2024-10-24 21:10 | XMS_ITS | Encounter Summary ---
Author Organization [facility] Address [address] [place] [address] Care Team Providers Care Virtualization Architect Name Role Phone Raffaele Kaiser MD Primary Care Provider U verna Encounter Details Date Type Department Care Team (Late st Contact Info) Description 05/31/2007 Outpatient Historical [facility] Internal Medicine 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
[2024-10-24 21:45] VITALS: BP 158/94; PULSE 128; RESP 14; TEMP 36.8; O2SAT 100
== END 2024-10-24 22:15 | disposition home or self-care (01) ==
LOC: ANHED 21:07
PROVIDERS: Physician Assistant; Emergency Provider Student in an Organized Health Care Education/Training Program; PCP Internal Medicine
DX: J10.1 Influenza due to other identified influenza virus with other respiratory manifestations (principal); M19.90 Unspecified osteoarthritis, unspecified site; K21.9 Gastro-esophageal reflux disease without esophagitis; J45.909 Unspecified asthma, uncomplicated; E03.9 Hypothyroidism, unspecified; I10 Essential (primary) hypertension
CPT/HCPCS: 36415; 71046; 80053; 87637; 99283

== ENCOUNTER 2025-01-01 11:55 | Outpatient (CLI) | payer MEDICARE, SELFPAY ==
--- NOTE | ~2025-01-01 | CT_ITS ---
EXAMINATION: CT abdomen pelvis wo con DATE: 01/01/2025 12:10 INDICATION: Right-sided lower abdominal pain. TECHNIQUE: Computed tomography (CT) of the abdomen and pelvis was performed without intravenous contr ast. Automated exposure control and iterative reconstruction technique were employed. The dose-length product was 616.89 mGy-cm. COMPARISON: 10/30/2022 and 03/05/2021 FINDINGS: Lung bases are clear. Heart size normal. Atherosclerotic coronary artery calcification. Aortic valve calcification. No pericardial or pleural effusion. Small sliding-type hiatal hernia. No change in a c ouple hepatic cysts the largest in the lateral segment of the left hepatic lobe measuring up to 1.6 c m. Gallbladder, spleen, pancreas, bilateral adrenal glands and kidneys are normal. Interval progressi on of groundglass appearance to the mesentery with increase in size of multiple mesenteric lymph node s which remain within normal limits in size. The appendix is not visualized and may be surgically abs ent with a couple surgical clips along the immediately anterior right lower quadrant abdominal wall. Moderate to large amount of stool throughout the colon which could be seen with constipation. Single sigmoid diverticula without adjacent from trace stranding to suggest diverticulitis. No bowel obstruc tion. Bladder, uterus and bilateral adnexa are unremarkable. Trace amount of likely physiologic free fluid in the cul-de-sac. No abscess or free intraperitoneal gas. Very small fat-containing umbilical hernia. No pathologically enlarged abdominal or pelvic lymphadenopathy. Mild lumbar levocurvature wit h severe lumbar and lower thoracic spondylosis. IMPRESSION: 1. Interval progression of a chronic katie appearance to the mesentery with increased size and number of numerous mildly prominent but still normal-sized mesenteric lymph nodes which are more normal for number than size suggestive of mesenteric panniculitis with differential also including secondary to portal hypertension. Lymphoma or acute mesenteric venous fibrosis would be unlikely given the [facility]. 2. Small sliding-type hiatal hernia. 3. Very small fat-containing umbilical hernia. Reviewed, dictated and finalized at location A. IMPRESSION: 1. Interval progression of a chronic katie appearance to the mesentery with inc reased size and number of numerous mildly prominent but still normal-sized mese nteric lymph nodes which are more normal for number than size suggestive of mes enteric panniculitis with differential also including secondary to portal hyper tension. Lymphoma or acute mesenteric venous fibrosis would be unlikely given t he chronicity. 2. Small sliding-type hiatal hernia. 3. Very small fat-containing umbilical hernia.
== END 2025-01-01 11:56 | disposition home or self-care (01) ==
PROVIDERS: PCP Nurse Practitioner; Visit Provider Nurse Practitioner
DX: R10.30 Lower abdominal pain, unspecified (principal); K44.9 Diaphragmatic hernia without obstruction or gangrene; K42.9 Umbilical hernia without obstruction or gangrene
CPT/HCPCS: 74176